=== PATIENT | female | born 1950 | race African-American/Black ===

== ENCOUNTER 2017-03-08 04:25 | Emergency (ER) | payer MEDICARE ==
[2017-03-08] MEDS ORDERED: Methocarbamol 1 GM in Sodium Chloride 0.9% 100 ML IVPB ONE (07:15)
[2017-03-08 07:43] LABS: Bilirubin Negative (Negative); Blood, Urine Negative (Negative); Glucose, Urine (Dipstick) Negative (Negative); Ketone, Urine Negative (Negative); Nitrite Negative (Negative); Protein, Urine (Dipstick) Negative (Neg-Trace); Urobilinogen 0.2 mg/dL (0.2-1.0)
--- NOTE | 2017-03-08 07:54 | RAD ---
CHEST 1 VIEW: HISTORY: A 67-year-old female with a cough and chronic back pain. COMPARISON: 06/16/16. FINDINGS: Heart size is upper range of normal. Mild vascular congestion. No confluent pneumonia, overt edema , or pleural effusion. IMPRESSION: Borderline heart and mild vascular congestion. No confluent pneumonia or other acute process. POS: [facility]
== END 2017-03-08 08:58 | disposition home or self-care (01) ==
LOC: ERS 04:25
DX: J20.9 Acute bronchitis, unspecified (principal); M54.5 Low back pain; G89.29 Other chronic pain; I25.10 Atherosclerotic heart disease of native coronary artery without angina pectoris; I25.2 Old myocardial infarction; I48.91 Unspecified atrial fibrillation; E11.9 Type 2 diabetes mellitus without complications; K21.9 Gastro-esophageal reflux disease without esophagitis; I10 Essential (primary) hypertension; Z86.73 Personal history of transient ischemic attack (TIA), and cerebral infarction without residual deficits; Z79.84 Long term (current) use of oral hypoglycemic drugs; Z79.82 Long term (current) use of aspirin; Z79.899 Other long term (current) drug therapy
CPT/HCPCS: 36416; 71010; 81003; 87086; 96365; J2800; J7050

== ENCOUNTER 2018-03-03 09:43 | Emergency (ER) | payer MEDICARE ==
[2018-03-03 12:53] LABS: Hemoglobin 8.2 g/dL (12.0-16.0); Mean Platelet Volume 7.9 fL (7.4-10.4); Platelet Count 210 thou/uL (130-400); RBC Distribution Width 16.8 % (11.5-14.5); Red Blood Cell (RBC) Count 2.35 mill/uL (4.20-5.40); White Blood Cell (WBC) Count 10.2 thou/uL (4.8-10.8)
[2018-03-03 12:54] LABS: #Basophils 0.1 thou/uL (0.0-0.2); #Eosinphils 0.1 thou/uL (0.0-0.7); #Lymphocytes 2.7 thou/uL (1.20-3.40); #Monocytes 0.9 thou/uL (0.11-0.59); #Neutrophils 6.4 thou/uL (1.40-6.50); %Eosinophils 0.5 % (0.0-10.0); %Lymphocytes 26.7 % (21.0-51.0); %Monocytes 8.8 % (0.0-10.0)
--- NOTE | 2018-03-03 13:03 | RAD ---
PORTABLE CHEST 1 VIEW: Date: 03/03/18 HISTORY: 68-year-old female with dyspnea, bilateral leg swelling and edema and pain to legs. FINDINGS: Heart size is upper range of normal. No confluent pneumonia, overt edema, or pleural effusion. IMPRESSION: Upper range of normal size heart. No evidence for other significant acute process. POS: [facility]
[2018-03-03 13:14] LABS: MDiff Complete? YES; Macrocytosis MODERATE=16-30 cells (100X) (0-5/hpf); PLT Morphology Comment Appears Adequate; Target Cells SLIGHT = 2-5 cells (100X) (0-1/hpf)
[2018-03-03 13:16] LABS: ALT (SGPT) 21 U/L (8-55); AST (SGOT) 43 U/L (5-34); Albumin 3.3 g/dL (3.4-4.8); Alkaline Phosphatase 149 U/L (40-150); Anion Gap 11 mmol/L (10-20); BUN (Urea Nitrogen) Less than 4 mg/dL (9.8-20.1); Bilirubin, Total 0.7 mg/dL (0.2-1.2); CK (CPK) 33 U/L (29-168); Calc. Creatinine Clearance 0 mL/min (70-130); Calcium 9.2 mg/dL (7.8-10.44); Carbon Dioxide 28 mmol/L (23-31); Chloride 98 mmol/L (98-107); Estimated GFR-MDRD 79; Globulin 3.8 g/dL (2.4-3.5); Glucose 148 mg/dL (80-115); Magnesium 1.4 mg/dL (1.6-2.6); Potassium 4.7 mmol/L (3.5-5.1); Protein, Total 7.1 g/dL (6.0-8.3); Sodium 132 mmol/L (136-145)
--- NOTE | 2018-03-03 14:07 | ULT ---
ULTRASOUND WITH DOPPLER DUPLEX VENOUS LOWER EXTREMITY BILATERAL: CPT: 83927 ICD-10-PCS: B54D HISTORY: Edema. TECHNIQUE: Color flow Doppler, spectral waveform analysis of pulsed Doppler, and ott-scale imaging with naida yary and augmentation, were used to evaluate the bilateral common femoral, femoral, popliteal, mortgage professional ior tibial, and superficial femoral, veins; and the proximal portions of the profunda femoral and gre ater saphenous, veins. FINDINGS: Appropriate compression, augmentation and flow within the imaged deep venous system of each lower ext remity without evidence of DVT. IMPRESSION: No DVT identified in the visualized bilateral lower extremities. POS: [facility]
== END 2018-03-03 15:13 | disposition home or self-care (01) ==
LOC: ERS 09:43
DX: R60.0 Localized edema (principal); I25.10 Atherosclerotic heart disease of native coronary artery without angina pectoris; I25.2 Old myocardial infarction; I48.91 Unspecified atrial fibrillation; E11.9 Type 2 diabetes mellitus without complications; K21.9 Gastro-esophageal reflux disease without esophagitis; I10 Essential (primary) hypertension; Z86.73 Personal history of transient ischemic attack (TIA), and cerebral infarction without residual deficits; Z79.899 Other long term (current) drug therapy; Z79.84 Long term (current) use of oral hypoglycemic drugs
CPT/HCPCS: 71045; 80053; 82550; 83735; 83880; 85025; 93005; 93970; 96374

== ENCOUNTER 2018-04-28 14:27 | Inpatient (IN) | payer MEDICARE ==
[2018-04-28] MEDS ORDERED: Dextrose 50% Abboject 50 ML SYRINGE ONE (14:35)
[2018-04-28 15:37] LABS: #Lymphocytes 0.7 thou/uL (1.20-3.40); #Monocytes 0.5 thou/uL (0.11-0.59); #Neutrophils 11.1 thou/uL (1.40-6.50); %Basophils 0.1 % (0.0-1.0); %Eosinophils 0.4 % (0.0-10.0); %Lymphocytes 5.6 % (21.0-51.0); %Monocytes 4.3 % (0.0-10.0); %Neutrophils 89.6 % (42.0-75.0); Hemoglobin 9.1 g/dL (12.0-16.0); Mean Corpuscular HGB CONC 31.6 g/dL (32.0-36.0); Mean Corpuscular Hemoglobin 34.2 pg (27.0-31.0); Mean Platelet Volume 7.9 fL (7.4-10.4); Platelet Count 203 thou/uL (130-400); RBC Distribution Width 14.9 % (11.5-14.5); Red Blood Cell (RBC) Count 2.66 mill/uL (4.20-5.40); White Blood Cell (WBC) Count 12.3 thou/uL (4.8-10.8)
[2018-04-28 15:53] LABS: ALT (SGPT) 20 U/L (8-55); AST (SGOT) 40 U/L (5-34); Albumin 3.5 g/dL (3.4-4.8); Alkaline Phosphatase 134 U/L (40-150); Anion Gap 15 mmol/L (10-20); BUN (Urea Nitrogen) 15 mg/dL (9.8-20.1); Bilirubin, Total 0.3 mg/dL (0.2-1.2); Calc. Creatinine Clearance 0 mL/min (70-130); Carbon Dioxide 16 mmol/L (23-31); Chloride 101 mmol/L (98-107); Estimated GFR-MDRD 55; Globulin 3.8 g/dL (2.4-3.5); Glucose 374 mg/dL (80-115); Potassium 5.3 mmol/L (3.5-5.1); Protein, Total 7.3 g/dL (6.0-8.3); Sodium 127 mmol/L (136-145)
[2018-04-28 15:57] LABS: Anisocytosis SLIGHT = 6-15 cells (100X) (0-5/hpf); MDiff Complete? YES; Macrocytosis SLIGHT = 6-15 cells (100X) (0-5/hpf); PLT Morphology Comment Appears Adequate; Polychromasia SLIGHT = 2-3 cells (100X) (0-2/hpf)
[2018-04-28] MEDS ORDERED: Enoxaparin Sodium 60 MG/0.6 ML SYRINGE ONE (16:30)
[2018-04-28 18:07] LABS: Magnesium 2.3 mg/dL (1.6-2.6)
--- NOTE | 2018-04-28 19:12 | CT ---
CT HEAD WITHOUT CONTRAST: Date: 04-28-18 Comparison: None. History: Altered mental status. Technique: Axial CT imaging at 5 mm intervals from vertex through skull base without contrast. FINDINGS: Imaged paranasal sinuses/mastoid air cells well aerated. There is atherosclerotic calcification of th e cavernous carotid arteries. No intracranial hemorrhage, midline shift, mass effect, or ventricular enlargement. IMPRESSION: No acute findings. POS: [facility]
[2018-04-28] MEDS ORDERED: Cefepime 2 GM VIAL ONE (19:42)
[2018-04-28] MEDS ORDERED: Dextrose 50% Abboject 50 ML SYRINGE SLOW IVP PRN (19:59)
[2018-04-28] MEDS ORDERED: Dextrose 5% in Water 1,000 ML IV PRN (19:59)
[2018-04-28] MEDS ORDERED: VANCOMYCIN IVPB PRN (20:11)
--- NOTE | 2018-04-28 20:34 | CT ---
CERVICAL SPINE CT WITHOUT CONTRAST: 04/28/18 COMPARISON: None. HISTORY: Unresponsive, hypoglycemia, altered mental status. TECHNIQUE: Axial CT imaging at 2.5 mm intervals from the skull base through lung apices without contrast. Das l and sagittal reformatted imaging obtained. FINDINGS: The visualized lung apices appear grossly unremarkable. The C1 ring is intact. The occipital condyles, the dens, and the C1-2 articulation demonstrate no acute findings. The craniocervical junction and the cervicothoracic junction demonstrate no acute findings. There is mild degenerative change at the atlantoaxial interspace. There is no anterolisthesis or retrolisthesis. No prevertebral soft tissue swelling. Left sided degenerative end plate change with sclerosis noted at C5-6. There is left sided uncovertebral osteophyte formation at C5-6 as well. There is no acute fracture or evidence of dislocation. IMPRESSION: Cervical spine degenerative change with no acute fracture or dislocation seen. POS: [facility]
--- NOTE | 2018-04-28 21:09 | RAD ---
UPRIGHT PORTABLE CHEST ONE VIEW: 04/28/18 HISTORY: 68-year-old female with history of hypoglycemia. COMPARISON: 03/03/18. FINDINGS: Inspiration is somewhat less than optimal. There is some bilateral vascular congestion with possible mild interstitial edema. No significant pleural effusion or cardiomegaly. IMPRESSION: Bilateral vascular congestion with possible very early or mild interstitial edema without cardiomegal y or significant pleural effusions. No confluent pneumonia. POS: [facility]
[2018-04-28 21:38] LABS: Lactic Acid 2.8 mmol/L (0.5-2.2)
--- NOTE | 2018-04-28 22:48 | HP ---
CHIEF COMPLAINT: Hypoglycemia. HISTORY OF PRESENT ILLNESS: The patient is a 68-year-old female who was found on the floor by her niece this morning, kind of less responsive, and the EMS was called. She was hypoglycemic with a glucose of 34. She was given D50 and transported to the [facility] Emergency Room in [facility]. She was found to be hypothermic. We do not know how long she was on the floor. We tried to contact her niece who is the surrogate decision maker, but we could not get hold of her. Her temperature at the time of emergency room evaluation was 93 rectally, then with warming blankets, it went up to 97 orally. PAST MEDICAL HISTORY: Positive for; 1. Atrial fibrillation. 2. Hypertension. 3. Diabetes mellitus. 4. Gastroesophageal reflux disease. 5. History of ischemic cerebrovascular accident. 6. Coronary artery disease. 7. Myocardial infarction. 8. From previous hospitalization, we know that she has some form of organic brain syndrome/dementia and she has a history of alcoholism. PAST SURGICAL HISTORY: 1. Hysterectomy. 2. Right forearm surgery after she had fracture. ALLERGIES: NONE. FAMILY HISTORY: Positive for Alzheimer dementia, diabetes mellitus, and hypertension. SOCIAL HISTORY: Apparently, she drinks alcohol socially at least twice a week. She denies any drug use or any serious smoking history. She lives at home. She is retired. REVIEW OF SYSTEMS: At this point, unobtainable because of patient's mental condition. PHYSICAL EXAMINATION: VITAL SIGNS: Her blood pressure is 133/98, pulse is 120, respiratory rate is 18, pain is zero, temperature is 97.3 orally, O2 saturation is 98% on room air. HEENT: Her head seems to be atraumatic. Eyes, pupils are responding to light properly. Sclerae nonicteric. Conjunctivae pinkish. Oral mucosa is slightly dry. NECK: Supple. LUNGS: Clear. HEART: S1 and S2. Irregularly irregular. No S3. No S4. Heart is tachycardic. LUNGS: Clear. ABDOMEN: Soft and nontender. Bowel sounds are present. No organomegaly. EXTREMITIES: No clubbing, cyanosis, or edema. NEUROLOGICAL: She follows my commands. She moves her all 4 extremities. Her response is slow. She is not able to recall exactly what happened. When she is asked a question about her past history, she is not really able to answer this completely. HOME MEDICATIONS: 1. Metformin 1000 mg twice a day. 2. Simvastatin 20 mg once a day. 3. Flecainide 50 mg twice a day. 4. Lisinopril/hydrochlorothiazide 10/12.5 mg one tablet twice a day. 5. Hydroxyzine 25 mg 1 to 2 tablets at bedtime. 6. Dyazide 37.5 mg once a day. LABORATORY DATA: White count of 12.3, hemoglobin 9.1, hematocrit 28.9, and platelet count 203. Chemistry, sodium of 127, potassium 5.3, chloride 101, CO2 of 16, creatinine 1.19, BUN 15, glucose 374 post D50 and post meal. The recent glucose is 225, AST 40, globulin 3.8, and the rest of chemistry is within normal limits. IMAGES: None. IMPRESSION: 1. Hypoglycemia of unclear etiology. The patient is not taking any insulin and on metformin only. After she received D50 and a meal, her glycemia has improved significantly and her mental condition is improved. 2. Status post being on the floor for unknown reason and it is unclear whether she lost consciousness. We can obtain the CT of the brain. 3. Hypothermia. Again, the patient was found on the floor. We do not know how long she was there, most likely because of hypoglycemia, she was not able to get up or maybe she had some kind of additional CVA event. 4. Atrial fibrillation with rapid ventricular rate. The patient has a history of diagnoses. She received 10 mg of Cardizem IV push in the emergency room and we will put her back on her flecainide to control the rate. Once we have CT of the brain negative for any bleed, we will give her full dose of Lovenox 1 mg/kg subcutaneously every 12 hours. 5. Organic brain syndrome/dementia per history. 6. Hypertension. 7. Hyponatremia of unclear etiology and chronicity. 8. Renal insufficiency. Again, unclear whether this is acute or chronic, most likely acute in the setting of the patient being on the floor for some time. 9. Gastroesophageal reflux disease. 10. Microcytic anemia. Again, unclear whether this is a new finding. 11. Hyperkalemia, mild. This does not need any treatment at this point. PLAN: Full admission to telemetry floor. IV fluids of normal saline at 100 mL/h, 2000 calories ADA diet. Lactic acid to be checked. The case was discussed with emergency room doctor. We will monitor her cardiac arrhythmia. We will check her glycemia every 4 hours. We will have the fish grader signals collection technician to evaluate her cardiac arrhythmia. We will obtain echocardiogram. Job ID: [id number]
[2018-04-29] MEDS: Flecainide 50 MG TAB PO SCH ×2 (02:42→08:52)
[2018-04-29 02:50] VITALS: BMI 23.8
[2018-04-29] MEDS: Sodium Chloride 0.9% 1,000 ML IV SCH ×2 (02:59→11:54)
[2018-04-29 03:00] LABS: Hemoglobin 9.3 g/dL (12.0-16.0); Hypochromia SLIGHT = 6-15 cells (100X) (0-5/hpf); Lymphocytes 14 % (21-51); MDiff Complete? YES; Macrocytosis SLIGHT = 6-15 cells (100X) (0-5/hpf); Mean Corpuscular HGB CONC 33.2 g/dL (32.0-36.0); Mean Platelet Volume 7.4 fL (7.4-10.4); Monocytes 4 % (0-10); Neutrophil 82 % (42-75); PLT Morphology Comment Appears Adequate; Platelet Count 217 thou/uL (130-400); RBC Distribution Width 14.9 % (11.5-14.5); Red Blood Cell (RBC) Count 2.58 mill/uL (4.20-5.40); White Blood Cell (WBC) Count 14.7 thou/uL (4.8-10.8)
[2018-04-29] MEDS ORDERED: Dextrose 10% in Water 1,000 ML IV SCH (03:00)
[2018-04-29 03:01] LABS: ALT (SGPT) 17 U/L (8-55); AST (SGOT) 26 U/L (5-34); Albumin 3.5 g/dL (3.4-4.8); Alkaline Phosphatase 125 U/L (40-150); Anion Gap 13 mmol/L (10-20); BUN (Urea Nitrogen) 12 mg/dL (9.8-20.1); Bilirubin, Total 0.3 mg/dL (0.2-1.2); Calc. Creatinine Clearance 53 mL/min (70-130); Calcium 9.5 mg/dL (7.8-10.44); Carbon Dioxide 19 mmol/L (23-31); Chloride 104 mmol/L (98-107); Estimated GFR-MDRD 71; Globulin 4.1 g/dL (2.4-3.5); Potassium 4.9 mmol/L (3.5-5.1); Protein, Total 7.6 g/dL (6.0-8.3); Sodium 131 mmol/L (136-145)
[2018-04-29 03:06] LABS: Glucose 51 mg/dL (80-115)
[2018-04-29] MEDS: Diltiazem HCl 125 MG, Admixture Fee 1 EACH in Sodium Chloride 0.9% 100 ML IVPB SCH (03:14)
[2018-04-29 04:35] LABS: Folate (Folic Acid) 2.6 ng/mL (7.0-31.4)
[2018-04-29] MEDS ORDERED: Vancomycin HCl 1 GM in Sodium Chloride 0.9% 250 ML 250 ML IVPB SCH (07:00)
[2018-04-29] MEDS: Cefepime 1 GM in Sodium Chloride 0.9% 100 ML IVPB SCH ×2 (11:00→19:51)
--- NOTE | 2018-04-29 11:01 | PQF ---
CLINICAL DOCUMENTATION IMPROVEMENT CLARIFICATION FORM: ICD-10 Updated PLEASE DO AN ADDENDUM TO THE PROGRESS NOTE WITH ANY DOCUMENTATION UPDATES OR ADDITIONS AND CARRY THROUGH TO DC SUMMARY. THANK YOU. DATE: 04/29/18 ATTN: DR. BALBUENA Please exercise your independent, professional judgment in responding to the clarification form. Clinical indicators are provided on the bottom of this form for your review Please check appropriate box(s): [ ] Acute Renal Failure (ARF) / Acute Kidney Injury (KEZIA) [ x ] Insignificant lab values [ ] Other diagnosis [ ] Unable to determine In addition, please specify: Present on Admission (POA): [x ] Yes [ ] No [ ] Unable to determine National Kidney Foundation Guidelines for CKD Staging Stage I Kidney damage with normal or increased GFRGFR > 90 Stage IIKidney damage with mildly decreased GFRGFR 60-89 Stage III Kidney damage with moderately decreased GFRGFR 30-59 Stage IVKidney damage with severely decreased GFRGFR 16-29 Stage VKidney failureGFR<15 ESRDEnd Stage Renal DiseaseOn dialysis Acute Renal Failure/Acute Kidney Failure defined as: Increases in SCr by (>) 0.3 mg/dl within 48 hours OR- Increases in SCr by (>) 1.5 times baseline, known or presumed to have occurred within the prior 7 days OR- Urine volume < 0.5 ml/kg/hour for 6 hours (KDIGO supplement 2012 for RIFLE/SHANIQUA criteria) For continuity of documentation, please document condition throughout progress notes and discharge summary. Thank You. CLINICAL INDICATORS - SIGNS / SYMPTOMS / LABS H&P: "RENAL INSUFFICIENCY" CREATININE 1/2: 1.19 / 13: 0.95 GFR: 55 71 RISKS: HYPERTENSION DIABETES TREATMENT: SERIAL LABS CARDIAC MONITORING IV FLUIDS (ER-PRESENT) (This form is maintained as a part of the permanent medical record) 2014 [employer] (formerly [employer]). All Rights Reserved ROBERT [email or web address] Office: [phone] [facility]
--- NOTE | 2018-04-29 11:38 | PDOC.PN ---
- Subjective Encounter Start Date: 04/29/18 Encounter Start Time: 11:37 -: old records requested/rev PT SEEN AND EXAMINED, CHART REVIEWED IN ITS ENTIRETY, THIS IS MY FIRST VISIT WITH THIS PATIENT Follow up for hypothermia, hypoglycemia and fall. pt remains tachycardic, on flecainide, cardiology consulted No F/c, no N/V/D/C, no CP or SOB, no cough or sputum production All systems reviewed and neg x as above - Objective Resuscitation Status - Order Detail: 04/28/18 17:13 Resuscitation Status Routine Resuscitation Status: FULL: Full Resuscitation MAR Reviewed: Yes Vital Signs & Weight: Vital Signs (12 hours) Temp Pulse Resp BP Pulse Ox 04/29/18 08:01 97.7 F 107 H 16 100/68 98 04/29/18 04:00 118 H 97/62 04/29/18 01:45 97.5 F L 148 H 18 120/85 98 Weight Weight 130 lb I&O: 04/28/18 04/29/18 04/30/18 06:59 06:59 06:59 Intake Total 1089 Output Total 300 Balance 789 Result Diagrams: 04/29/18 02:30 04/29/18 02:30 Additional Labs: Accuchecks 04/29/18 04/29/18 04/29/18 11:00 07:59 05:57 POC Glucose 151 H 188 H 226 H 04/29/18 04/29/18 04/28/18 04:21 02:41 20:09 POC Glucose 281 H Less than 35 L* 191 H 04/28/18 04/28/18 04/28/18 16:47 15:17 14:31 POC Glucose 225 H 362 H 76 Radiology Reviewed by me: Yes EKG Reviewed by me: Yes Phys Exam - Physical Examination Constitutional: NAD HEENT: PERRLA, moist MMs, sclera anicteric, oral pharynx no lesions Neck: no nodes, no JVD, supple, full ROM Respiratory: no wheezing, no rales, no rhonchi, clear to auscultation bilateral Cardiovascular: irregular tachycardic Gastrointestinal: soft, non-tender, no distention, positive bowel sounds Musculoskeletal: no edema Neurological: non-focal, normal sensation, moves all 4 limbs Lymphatic: no nodes Psychiatric: normal affect, A&O x 3 Skin: no rash, normal turgor, cap refill <2 seconds Dx/Plan (1) Alcohol abuse Code(s): F10.10 - ALCOHOL ABUSE, UNCOMPLICATED Status: Chronic (2) Atrial fibrillation with RVR Code(s): I48.91 - UNSPECIFIED ATRIAL FIBRILLATION Status: Chronic (3) CAD (coronary artery disease) Code(s): I25.10 - ATHSCL HEART DISEASE OF [place] CORONARY ARTERY W/O ANG PCTRS Status: Acute Qualifiers: Coronary Disease-Associated Artery/Lesion type: [place] artery [place] vs. transplanted heart: [place] heart Associated angina: without angina Qualified Code(s): I25.10 - Atherosclerotic heart disease of [place] coronary artery without angina pectoris (4) Dementia, alcoholic Code(s): F10.27 - ALCOHOL DEPENDENCE WITH ALCOHOL-INDUCED PERSISTING DEMENTIA Status: Chronic Qualifiers: Dementia behavioral disturbance: with behavioral disturbance Qualified Code (s): F10.27 - Alcohol dependence with alcohol-induced persisting dementia (5) Diabetes Mellitus Type 2 in Nonobese Code(s): E11.9 - TYPE 2 DIABETES MELLITUS WITHOUT COMPLICATIONS Status: Acute (6) Gastroesophageal reflux disease Code(s): K21.9 - GASTRO-ESOPHAGEAL REFLUX DISEASE WITHOUT ESOPHAGITIS Status: Chronic Qualifiers: Esophagitis presence: without esophagitis Qualified Code(s): K21.9 - Gastro -esophageal reflux disease without esophagitis (7) HTN (hypertension) Code(s): I10 - ESSENTIAL (PRIMARY) HYPERTENSION Status: Chronic Qualifiers: Hypertension type: essential hypertension Qualified Code(s): I10 - Essential (primary) hypertension (8) Non compliance with medical treatment Code(s): Z91.19 - PATIENT'S NONCOMPLIANCE W OTH MEDICAL TREATMENT AND REGIMEN Status: Chronic - Plan cont current plan of care, out of bed/ambulate * . continue flecainide, follow up on cardiology recommendations
[2018-04-29] MEDS: Vancomycin HCl 500 MG in Sodium Chloride 0.9% 100 ML IVPB SCH (20:22)
--- NOTE | 2018-04-30 00:59 | CON ---
DATE OF CONSULTATION: 04/29/2018 CARDIOLOGY CONSULTATION PRIMARY CHICKEN DRESSER: Darius Manuel MD REASON FOR CONSULTATION: Atrial fibrillation with RVR. HISTORY OF PRESENT ILLNESS: Ms. Dee is a very pleasant 68-year-old female, who comes to the hospital for being found on the floor by her niece, anderson. She was found to be hypoglycemic with a glucose of 34, given some D50 and taken to the hospital for further evaluation. She was also hypothermic. Unclear as to how long she was on the floor. Temperature in the ER rectally was 93. Warming blankets were able to make it go up to 97. During her admission, she was found to be in atrial fibrillation with RVR. She was started on a Cardizem drip and full dose Lovenox. Last time she saw Dr. Manuel was in 2014. At that time, she was on flecainide and aspirin for stroke prophylaxis. She had a lot of trouble with followups. She actually never had a followup since 2014 and so, our office stopped filing her antiarrhythmics until she would show up to the office. Currently, she denies any chest pain, tightness, or pressure. No shortness of breath. PAST MEDICAL HISTORY: 1. Paroxysmal atrial fibrillation. 2. History of GI bleeding in the past. 3. Hypertension. 4. Type 2 diabetes. 5. GERD. 6. Ischemic CVAs in the past. 7. History of atrial flutter, status post ablation. 8. Dementia, alcohol related most likely. 9. Noncompliance. PAST SURGICAL HISTORY: 1. Hysterectomy. 2. Flutter ablation. 3. Right forearm surgery after fracture. OUTPATIENT MEDICATIONS: 1. Metformin 1000 mg b.i.d. 2. Simvastatin 20 mg a day. 3. Flecainide 50 mg twice a day. 4. Lisinopril hydrochlorothiazide 10/12.5 mg twice a day. 5. Hydroxyzine. 6. Dyazide 37.5 mg daily. ALLERGIES: NO KNOWN DRUG ALLERGIES. FAMILY HISTORY: No early coronary artery disease. SOCIAL HISTORY: Social alcohol use twice a week. No drug use or tobacco use. REVIEW OF SYSTEMS: A 12-point review of systems was done, was all negative unless stated in the history of present illness. PHYSICAL EXAMINATION: VITAL SIGNS: Temperature 97.4, pulse 114, respiratory rate 18, sat 96% on room air, and blood pressure 119/62. GENERAL: Awake, alert, and oriented to person and place. Difficulty with time. No distress. HEENT: Normocephalic, atraumatic. NECK: Supple. LUNGS: Clear. CARDIOVASCULAR: S1, S2. No S3. Irregularly irregular heart rate in the 90s. ABDOMEN: Soft. Positive bowel sounds. EXTREMITIES: No edema. SKIN: Warm and dry. LABORATORY WORK: Shows a white count of 12.3, up to 14, this morning; hemoglobin 9.3, hematocrit 28, platelet count 217. Chemistry on admission, glucose of less than 35, much better since. Sodium 131, potassium 4.9, chloride 104, carbon dioxide 19, anion gap 13, BUN 12, creatinine 0.95, GFR 71, calcium 9.5, globulin 4.1, folate was low at 2.6. Vitamin B12 is normal. Normal bilirubin, AST, ALT, and alkaline phosphatase. Cervical spine CT and brain CT were reviewed. No acute findings. Chest x-ray, bilateral vascular congestion with mild interstitial edema. ASSESSMENT: 1. Loss of consciousness related to hypoglycemia. 2. Atrial fibrillation with rapid ventricular response: Likely related to her acute state with a little volume up. 3. Acute on chronic diastolic heart failure. 4. Noncompliance. PLAN: 1. We would stop full anticoagulation. She has a history of GI bleeding and noncompliance. She will be a poor candidate for anticoagulation in this setting. Low-dose aspirin with PPI alone for stroke prophylaxis. 2. We would also not give her flecainide as she is noncompliant, antiarrhythmics would not be ideal in the setting of noncompliance as there has to be followup with EKGs. 3. Continue rate control for now. We will continue diltiazem drip today, possibly switch to oral in the morning if she remains rate controlled. 4. We will add oral beta suresh in the form of Toprol-XL 25 mg daily to try to improve her rate control. Thank you for letting me to participate in the care of your patient. We will follow. Job ID: [id number]
[2018-04-30] MEDS: Diltiazem HCl 125 MG, Admixture Fee 1 EACH in Sodium Chloride 0.9% 100 ML IVPB SCH (02:18)
[2018-04-30 06:32] LABS: ALT (SGPT) 15 U/L (8-55); AST (SGOT) 26 U/L (5-34); Alkaline Phosphatase 109 U/L (40-150); Anion Gap 12 mmol/L (10-20); BUN (Urea Nitrogen) 8 mg/dL (9.8-20.1); Bilirubin, Total 0.5 mg/dL (0.2-1.2); Calc. Creatinine Clearance 61 mL/min (70-130); Calcium 9.2 mg/dL (7.8-10.44); Carbon Dioxide 15 mmol/L (23-31); Chloride 107 mmol/L (98-107); Estimated GFR-MDRD 84; Globulin 3.8 g/dL (2.4-3.5); Glucose 96 mg/dL (80-115); Potassium 5.1 mmol/L (3.5-5.1); Protein, Total 6.8 g/dL (6.0-8.3); Sodium 129 mmol/L (136-145)
[2018-04-30 06:35] LABS: #Eosinphils 0.1 thou/uL (0.0-0.7); #Lymphocytes 3.1 thou/uL (1.20-3.40); #Neutrophils 8.5 thou/uL (1.40-6.50); %Basophils 0.3 % (0.0-1.0); %Eosinophils 0.8 % (0.0-10.0); %Lymphocytes 24.5 % (21.0-51.0); %Monocytes 7.8 % (0.0-10.0); %Neutrophils 66.5 % (42.0-75.0); Hemoglobin 9.2 g/dL (12.0-16.0); MDiff Complete? YES; Macrocytosis SLIGHT = 6-15 cells (100X) (0-5/hpf); Mean Corpuscular HGB CONC 32.5 g/dL (32.0-36.0); Mean Corpuscular Hemoglobin 35.5 pg (27.0-31.0); Mean Platelet Volume 7.8 fL (7.4-10.4); PLT Morphology Comment Appears Adequate; Platelet Count 259 thou/uL (130-400); RBC Distribution Width 15.2 % (11.5-14.5); White Blood Cell (WBC) Count 12.8 thou/uL (4.8-10.8)
[2018-04-30] MEDS: Cefepime 1 GM in Sodium Chloride 0.9% 100 ML IVPB SCH ×2 (08:35→20:54)
[2018-04-30] MEDS: Aspirin 81 mg Enteric Coated Tablet PO SCH (08:36)
[2018-04-30] MEDS ORDERED: HumaLOG 300 UNITS/3 ML VIAL SC PRN (12:03)
--- NOTE | 2018-04-30 16:42 | PDOC.CTH ---
Cardiology Progress Note - Subjective No new issues. - Objective Vital Signs Temp Pulse Resp BP Pulse Ox 04/30/18 15:48 98.6 F 85 18 99/65 97 04/30/18 12:36 98.6 F 91 20 108/73 97 04/30/18 07:37 98.5 F 81 21 H 110/81 96 Weight 129 lb 04/29/18 04/30/18 05/01/18 06:59 06:59 06:59 Intake Total 1089 3030 Output Total 300 1320 Balance 789 1710 - Physical Examination General/Neuro: alert & oriented x3, NAD Neck: no JVD present Lungs: CTA, unlabored respirations Heart: other: (Irregular) Abdomen: NT/ND Extremities: other: (no edema) - Telemetry Telemetry Rhythm: Afib HR 90-100 - Labs Result Diagrams: 04/30/18 05:53 04/30/18 05:53 Troponin/CKMB Troponin I Less than 0.010 ng/mL (< 0.028) 04/28/18 15:12 - Assessment/Plan 1. Paroxysmal afib Currently rate controlled. 2. Hx of GI bleeding in the past 3. Hypoglycemia and LOC due to this. 4. Acute on chronic diastolic heart failure, improved. 5. Non compliance PLAN: - Will stop diltiazem drip - Increase Toprol Xl for rate control - Poor candidate for anti arrhythmics due to non compliance - Poor candidate for anticoagulation due to GI bleeding while on it in the past , ASA alone for stroke prophylaxis.
[2018-04-30 20:20] LABS: Vancomycin, Trough 9.7 ug/mL
[2018-04-30] MEDS ORDERED: Vancomycin HCl 750 MG in Sodium Chloride 0.9% 250 ML 250 ML IVPB SCH (22:00)
[2018-04-30] MEDS: Vancomycin HCl 500 MG in Sodium Chloride 0.9% 100 ML IVPB SCH (22:29)
[2018-05-01] MEDS ORDERED: Non-Formulary Item 1 EACH (Cyclobenzaprine Hcl [Cyclobenzaprine Hcl] 5 MG) PO PRN (07:17)
[2018-05-01] MEDS ORDERED: Cyclobenzaprine 10 MG TAB PO PRN (07:34)
[2018-05-01] MEDS: Cyanocobalamin (Vitamin B-12) 1,000 MCG TAB PO SCH (08:23)
[2018-05-01] MEDS: Aspirin 81 mg Enteric Coated Tablet PO SCH (08:23)
[2018-05-01] MEDS: Folic Acid 1 MG TAB PO SCH (08:23)
[2018-05-01] MEDS: Multivitamin W/ Minerals 1 TAB PO SCH (08:24)
[2018-05-01 08:53] LABS: #Basophils 0.1 thou/uL (0.0-0.2); #Eosinphils 0.2 thou/uL (0.0-0.7); #Lymphocytes 2.9 thou/uL (1.20-3.40); #Monocytes 1.1 thou/uL (0.11-0.59); #Neutrophils 7.3 thou/uL (1.40-6.50); %Basophils 0.7 % (0.0-1.0); %Eosinophils 1.4 % (0.0-10.0); %Lymphocytes 25.5 % (21.0-51.0); %Monocytes 9.3 % (0.0-10.0); %Neutrophils 63.1 % (42.0-75.0); Hemoglobin 8.5 g/dL (12.0-16.0); Mean Corpuscular HGB CONC 33.4 g/dL (32.0-36.0); Mean Corpuscular Hemoglobin 35.7 pg (27.0-31.0); Mean Platelet Volume 7.5 fL (7.4-10.4); Platelet Count 269 thou/uL (130-400); RBC Distribution Width 14.8 % (11.5-14.5); Red Blood Cell (RBC) Count 2.39 mill/uL (4.20-5.40); White Blood Cell (WBC) Count 11.5 thou/uL (4.8-10.8)
[2018-05-01 09:07] LABS: INR-International Normal Ratio 1.1; Prothrombin Time 14.6 SEC (12.0-14.7)
[2018-05-01 09:08] LABS: PTT 39.9 SEC (22.9-36.1)
[2018-05-01 09:13] LABS: Anion Gap 12 mmol/L (10-20); BUN (Urea Nitrogen) 8 mg/dL (9.8-20.1); Calc. Creatinine Clearance 70 mL/min (70-130); Calcium 8.9 mg/dL (7.8-10.44); Carbon Dioxide 17 mmol/L (23-31); Chloride 103 mmol/L (98-107); Estimated GFR-MDRD 88; Glucose 108 mg/dL (80-115); Magnesium 1.3 mg/dL (1.6-2.6); Potassium 4.5 mmol/L (3.5-5.1); Sodium 127 mmol/L (136-145)
[2018-05-01] MEDS: Furosemide 20 MG TAB PO SCH (09:35)
--- NOTE | 2018-05-01 10:23 | PDOC.PN ---
- Subjective Encounter Start Date: 05/01/18 Encounter Start Time: 07:30 -: old records requested/rev Patient seen and examined. No new complaints. No overnight events her heart rate is not controlled - Objective Resuscitation Status - Order Detail: 04/28/18 17:13 Resuscitation Status Routine Resuscitation Status: FULL: Full Resuscitation MAR Reviewed: Yes Vital Signs & Weight: Vital Signs (12 hours) Temp Pulse Resp BP Pulse Ox 05/01/18 08:30 92 L 05/01/18 08:25 109 H 108/58 L 05/01/18 07:40 99.3 F 113 H 16 99/60 92 L 05/01/18 03:20 98.8 F 115 H 14 102/63 95 Weight Weight 142 lb I&O: 04/30/18 05/01/18 05/02/18 06:59 06:59 06:59 Intake Total 3030 1733 Output Total 1320 2650 Balance 1710 -917 Result Diagrams: 05/01/18 08:35 05/01/18 08:35 Additional Labs: Accuchecks 05/01/18 04/30/18 04/30/18 05:51 20:36 16:47 POC Glucose 118 H 203 H 183 H 04/30/18 10:58 POC Glucose 216 H Radiology Reviewed by me: Yes EKG Reviewed by me: Yes (afib) Phys Exam - Physical Examination Constitutional: NAD HEENT: PERRLA, moist MMs, sclera anicteric Neck: no JVD, supple Respiratory: no wheezing, no rales, no rhonchi Cardiovascular: no significant murmur, irregular Gastrointestinal: soft, non-tender, no distention, positive bowel sounds Musculoskeletal: no edema, pulses present Neurological: non-focal, normal sensation, moves all 4 limbs Lymphatic: no nodes Psychiatric: normal affect, A&O x 3 Skin: no rash, normal turgor Dx/Plan (1) Acute on chronic diastolic ACC/AHA stage C congestive heart failure Code(s): I50.33 - ACUTE ON CHRONIC DIASTOLIC (CONGESTIVE) HEART FAILURE Status : Acute (2) Atrial fibrillation with RVR Code(s): I48.91 - UNSPECIFIED ATRIAL FIBRILLATION Status: Acute (3) Diabetes Mellitus Type 2 in Nonobese Code(s): E11.9 - TYPE 2 DIABETES MELLITUS WITHOUT COMPLICATIONS Status: Acute (4) Folate deficiency Code(s): E53.8 - DEFICIENCY OF OTHER SPECIFIED B GROUP VITAMINS Status: Acute (5) Hypoglycemia associated with type 2 diabetes mellitus Code(s): E11.649 - TYPE 2 DIABETES MELLITUS WITH HYPOGLYCEMIA WITHOUT COMA Status: Acute (6) Hyponatremia Code(s): E87.1 - HYPO-OSMOLALITY AND HYPONATREMIA Status: Acute (7) Lactic acidosis Code(s): E87.2 - ACIDOSIS Status: Acute (8) Alcohol abuse Code(s): F10.10 - ALCOHOL ABUSE, UNCOMPLICATED Status: Chronic (9) CAD (coronary artery disease) Code(s): I25.10 - ATHSCL HEART DISEASE OF [place] CORONARY ARTERY W/O ANG PCTRS Status: Chronic Qualifiers: Coronary Disease-Associated Artery/Lesion type: [place] artery [place] vs. transplanted heart: [place] heart Associated angina: without angina Qualified Code(s): I25.10 - Atherosclerotic heart disease of [place] coronary artery without angina pectoris (10) Dementia, alcoholic Code(s): F10.27 - ALCOHOL DEPENDENCE WITH ALCOHOL-INDUCED PERSISTING DEMENTIA Status: Chronic Qualifiers: Dementia behavioral disturbance: with behavioral disturbance Qualified Code (s): F10.27 - Alcohol dependence with alcohol-induced persisting dementia (11) Gastroesophageal reflux disease Code(s): K21.9 - GASTRO-ESOPHAGEAL REFLUX DISEASE WITHOUT ESOPHAGITIS Status: Chronic Qualifiers: Esophagitis presence: without esophagitis Qualified Code(s): K21.9 - Gastro -esophageal reflux disease without esophagitis (12) HTN (hypertension) Code(s): I10 - ESSENTIAL (PRIMARY) HYPERTENSION Status: Chronic Qualifiers: Hypertension type: essential hypertension Qualified Code(s): I10 - Essential (primary) hypertension (13) Macrocytic anemia Code(s): D53.9 - NUTRITIONAL ANEMIA, UNSPECIFIED Status: Chronic (14) Non compliance with medical treatment Code(s): Z91.19 - PATIENT'S NONCOMPLIANCE W OTH MEDICAL TREATMENT AND REGIMEN Status: Chronic - Plan cont current plan of care, PT/OT * start PT * DC vancomycin and cefeepime * give one dose of digoxin * start folic acid, vitamin b12, thiamin and theragran * still rate not controlled and echo result pending * cardiology on case * ambulate today. Review of Systems - Review of Systems ENT: negative: Ear Pain, Ear Discharge, Nose Pain, Nose Discharge, Nose Congestion, Mouth Pain, Mouth Swelling, Throat Pain, Throat Swelling, Other Respiratory: negative: Cough, Dry, Shortness of Breath, Hemoptysis, SOB with Excertion, Pleuritic Pain, Sputum, Wheezing Cardiovascular: negative: chest pain, palpitations, orthopnea, paroxysmal nocturnal dyspnea, edema, light headedness, other Gastrointestinal: negative: Nausea, Vomiting, Abdominal Pain, Diarrhea, Constipation, Melena, Hematochezia, Other Genitourinary: negative: Dysuria, Frequency, Incontinence, Hematuria, Retention , Other Musculoskeletal: negative: Neck Pain, Shoulder Pain, Arm Pain, Back Pain, Hand Pain, Leg Pain, Foot Pain, Other Skin: negative: Rash, Lesions, Ellis, Bruising, Other - Medications/Allergies Allergies/Adverse Reactions: Allergies Allergy/AdvReac Type Severity Reaction Status Date / Time No Known Allergies Allergy Verified 07/12/13 22:42 Medications: Current Medications Aspirin (Ecotrin) 81 mg PO DAILY [facility] Last Admin: 05/01/18 08:23 Dose: 81 mg Atorvastatin Calcium (Lipitor) 10 mg PO [facility] Cyanocobalamin (Vitamin B-12) 1,000 mcg PO DAILY [facility] Last Admin: 05/01/18 08:23 Dose: 1,000 mcg Cyclobenzaprine HCl (Flexeril) 5 mg PO BIDPRN PRN PRN Reason: Muscle Spasm Dextrose/Water (Dextrose 50%) 25 gm SLOW IVP PRN PRN PRN Reason: Hypoglycemia Folic Acid (Folvite) 1 mg PO DAILY [facility] Last Admin: 05/01/18 08:23 Dose: 1 mg Furosemide (Lasix) 20 mg PO DAILY [facility] Last Admin: 05/01/18 09:35 Dose: 20 mg Glucagon (Glucagon) 1 mg IM PRN PRN PRN Reason: Hypoglycemia Last Admin: 04/29/18 02:46 Dose: 1 mg Dextrose/Water (D5w) 1,000 mls @ 0 mls/hr IV .Q0M PRN PRN Reason: Hypoglycemia Insulin Human Lispro (Humalog) 0 units SC .MILD SLIDING SCALE PRN; Protocol PRN Reason: MILD SLIDING SCALE Iron/Minerals/Multivitamins (Theragran M) 1 tab PO DAILY [facility] Last Admin: 05/01/18 08:24 Dose: 1 tab Metoprolol Succinate (Toprol Xl) 50 mg PO DAILY [facility] Last Admin: 05/01/18 08:23 Dose: 50 mg Miscellaneous Medication (Pharmacy To Dose) 1 each IVPB PRN PRN PRN Reason: EMPIRIC Sodium Chloride (Flush - Normal Saline) 10 ml IVF Q12HR [facility] Last Admin: 05/01/18 08:26 Dose: 10 ml Sodium Chloride (Flush - Normal Saline) 10 ml IVF PRN PRN PRN Reason: Saline Flush Thiamine HCl (Thiamine) 100 mg PO DAILY [facility] Last Admin: 05/01/18 08:23 Dose: 100 mg
[2018-05-01] MEDS ORDERED: Digoxin 0.5 MG/2 ML AMP SLOW IVP SCH ×3 (11:00→18:45)
[2018-05-01] MEDS ORDERED: Magnesium Sulfate 3 GM in Sodium Chloride 0.9% 100 ML IVPB SCH (11:15)
[2018-05-01] MEDS ORDERED: Senokot S 8.6-50 MG TAB PO PRN (11:17)
[2018-05-01] MEDS ORDERED: Cepastat Lozenges 1 LOZ PO PRN (11:17)
[2018-05-01] MEDS ORDERED: Diabetic Tussin 200 MG/10 ML UDCUP PO PRN (11:17)
[2018-05-01] MEDS ORDERED: Loratadine 10 MG TAB PO PRN (11:17)
[2018-05-01] MEDS ORDERED: Eucerin (Mineral Oil/Petrolatum,White) 30 gm Jar TOP PRN (11:17)
[2018-05-01] MEDS ORDERED: Zolpidem Tartrate 5 MG TAB PO PRN (11:17)
[2018-05-01] MEDS ORDERED: Loperamide HCl 2 MG CAP PO PRN (11:17)
[2018-05-01] MEDS ORDERED: Artificial Tears 18 DROP/0.9 ML EA EYE PRN (11:17)
[2018-05-01] MEDS ORDERED: Sodium Chloride 0.65% Nasal 44 ML BOT EA NARE PRN (11:17)
[2018-05-01] MEDS ORDERED: HYDROcodone/Acetaminophen 5/325 mg Tablet PO PRN (11:17)
[2018-05-01] MEDS ORDERED: Bisacodyl 10 MG SUPP PR PRN (11:17)
[2018-05-01] MEDS ORDERED: Calcium Carbonate 500 MG ChewTAB PO PRN (11:17)
[2018-05-01] MEDS ORDERED: Ondansetron ODT 4 MG TAB PO PRN (11:17)
[2018-05-01] MEDS ORDERED: hydrALAZINE 20 MG/ML VIAL SLOW IVP PRN (11:17)
[2018-05-01] MEDS ORDERED: Ondansetron PF 4 MG/2 ML Vial IVP PRN (11:17)
[2018-05-01] MEDS: Famotidine 20 MG TAB PO SCH (19:54)
[2018-05-01] MEDS: Atorvastatin Calcium 10 MG TAB PO SCH (19:55)
[2018-05-01] MEDS ORDERED: Simvastatin 20 MG TAB PO SCH (21:00)
--- NOTE | 2018-05-01 21:42 | PDOC.CTH ---
Cardiology Progress Note - Objective Vital Signs Temp Pulse Resp BP Pulse Ox 05/01/18 19:51 97.7 F 108 H 18 124/68 99 05/01/18 18:47 130 H 05/01/18 18:46 116 H 05/01/18 16:00 98.7 F 116 H 16 120/72 100 05/01/18 11:30 110 H 16 119/72 100 Weight 142 lb 04/30/18 05/01/18 05/02/18 06:59 06:59 06:59 Intake Total 3030 1733 960 Output Total 1320 2650 600 Balance 1710 -917 360 - Labs Result Diagrams: 05/02/18 06:07 05/02/18 06:07 Troponin/CKMB Troponin I Less than 0.010 ng/mL (< 0.028) 04/28/18 15:12 - Assessment/Plan 1. Paroxysmal afib - Diltiazem 180mg qd and Digoxin IV and PO were started for HR 120-130s. Cont. to monitor 2. Hx of GI bleeding in the past 3. Hypoglycemia and LOC due to this. 4. Acute on chronic diastolic heart failure, improved. 5. Hyponatremia - no changed. Non compliance MAR reviewed
[2018-05-01 23:51] LABS: Bilirubin Negative (Negative); Blood, Urine Negative (Negative); Clarity CLEAR (Clear); Glucose, Urine (Dipstick) 250 mg/dL (Negative); Leukocyte Negative (Negative); Nitrite Negative (Negative); Protein, Urine (Dipstick) Negative (Neg-Trace); Specific Gravity, Urine 1.005 (1.002-1.036); Urobilinogen 0.2 mg/dL (0.2-1.0)
[2018-05-01 23:54] LABS: Bacteria/HPF None Seen HPF (None Seen); Hyaline Casts/LPF 0-3 HYALINE CAST LPF (0-3 Hyaline); RBC/HPF None Seen HPF (0-3); Squamous Epithelial 0-3 HPF (0-3); WBC/HPF None Seen HPF (0-3)
[2018-05-02] MEDS ORDERED: Digoxin 0.5 MG/2 ML AMP SLOW IVP SCH (00:30)
[2018-05-02 06:23] LABS: #Basophils 0.1 thou/uL (0.0-0.2); #Eosinphils 0.2 thou/uL (0.0-0.7); #Lymphocytes 2.1 thou/uL (1.20-3.40); #Monocytes 1.2 thou/uL (0.11-0.59); %Basophils 0.7 % (0.0-1.0); %Eosinophils 1.9 % (0.0-10.0); %Lymphocytes 16.3 % (21.0-51.0); %Monocytes 9.5 % (0.0-10.0); %Neutrophils 71.6 % (42.0-75.0); Hemoglobin 8.8 g/dL (12.0-16.0); Mean Corpuscular HGB CONC 32.8 g/dL (32.0-36.0); Mean Corpuscular Hemoglobin 35.2 pg (27.0-31.0); Mean Platelet Volume 7.5 fL (7.4-10.4); Platelet Count 283 thou/uL (130-400); RBC Distribution Width 14.9 % (11.5-14.5); Red Blood Cell (RBC) Count 2.49 mill/uL (4.20-5.40); White Blood Cell (WBC) Count 12.5 thou/uL (4.8-10.8)
[2018-05-02 06:37] LABS: Anion Gap 13 mmol/L (10-20); BUN (Urea Nitrogen) 7 mg/dL (9.8-20.1); Calc. Creatinine Clearance 70 mL/min (70-130); Calcium 9.1 mg/dL (7.8-10.44); Carbon Dioxide 18 mmol/L (23-31); Chloride 102 mmol/L (98-107); Estimated GFR-MDRD 88; Glucose 109 mg/dL (80-115); Magnesium 1.7 mg/dL (1.6-2.6); Potassium 4.5 mmol/L (3.5-5.1); Sodium 128 mmol/L (136-145)
[2018-05-02] MEDS: Cyanocobalamin (Vitamin B-12) 1,000 MCG TAB PO SCH (08:58)
[2018-05-02] MEDS: Famotidine 20 MG TAB PO SCH ×2 (08:58→20:11)
[2018-05-02] MEDS: Multivitamin W/ Minerals 1 TAB PO SCH (08:59)
[2018-05-02] MEDS: Folic Acid 1 MG TAB PO SCH (08:59)
[2018-05-02] MEDS: Furosemide 20 MG TAB PO SCH (08:59)
[2018-05-02] MEDS: Digoxin 0.125 MG TAB PO SCH (08:59)
[2018-05-02] MEDS: Aspirin 81 mg Enteric Coated Tablet PO SCH (09:00)
--- NOTE | 2018-05-02 11:04 | PDOC.PN ---
- Subjective Encounter Start Date: 05/02/18 Encounter Start Time: 07:40 Patient seen and examined. No new complaints. No overnight events - Objective Resuscitation Status - Order Detail: 04/28/18 17:13 Resuscitation Status Routine Resuscitation Status: FULL: Full Resuscitation MAR Reviewed: Yes Vital Signs & Weight: Vital Signs (12 hours) Temp Pulse Resp BP Pulse Ox 05/02/18 08:59 89 05/02/18 07:35 100 05/02/18 07:30 98.3 F 89 16 112/64 100 05/02/18 04:00 97.9 F 95 20 95/56 L 98 05/02/18 01:44 108 H Weight Weight 141 lb 3.2 oz I&O: 05/01/18 05/02/18 05/03/18 06:59 06:59 06:59 Intake Total 1733 1440 Output Total 2650 600 Balance -917 840 Result Diagrams: 05/02/18 06:07 05/02/18 06:07 Additional Labs: Accuchecks 05/02/18 05/01/18 05/01/18 05:25 20:02 17:57 POC Glucose 95 213 H 163 H Radiology Reviewed by me: Yes (echo reviewed) EKG Reviewed by me: Yes (afib) Phys Exam - Physical Examination Constitutional: NAD HEENT: PERRLA, moist MMs, sclera anicteric Neck: no JVD, supple Respiratory: no wheezing, no rales, no rhonchi Cardiovascular: RRR, irregular Gastrointestinal: soft, non-tender, no distention, positive bowel sounds Musculoskeletal: no edema, pulses present Neurological: non-focal, normal sensation Lymphatic: no nodes Psychiatric: normal affect, A&O x 3 Skin: no rash, normal turgor Dx/Plan (1) Acute on chronic diastolic ACC/AHA stage C congestive heart failure Code(s): I50.33 - ACUTE ON CHRONIC DIASTOLIC (CONGESTIVE) HEART FAILURE Status : Acute (2) Atrial fibrillation with RVR Code(s): I48.91 - UNSPECIFIED ATRIAL FIBRILLATION Status: Acute (3) Diabetes Mellitus Type 2 in Nonobese Code(s): E11.9 - TYPE 2 DIABETES MELLITUS WITHOUT COMPLICATIONS Status: Acute (4) Folate deficiency Code(s): E53.8 - DEFICIENCY OF OTHER SPECIFIED B GROUP VITAMINS Status: Acute (5) Hypoglycemia associated with type 2 diabetes mellitus Code(s): E11.649 - TYPE 2 DIABETES MELLITUS WITH HYPOGLYCEMIA WITHOUT COMA Status: Acute (6) Hyponatremia Code(s): E87.1 - HYPO-OSMOLALITY AND HYPONATREMIA Status: Acute (7) Lactic acidosis Code(s): E87.2 - ACIDOSIS Status: Acute (8) Alcohol abuse Code(s): F10.10 - ALCOHOL ABUSE, UNCOMPLICATED Status: Chronic (9) CAD (coronary artery disease) Code(s): I25.10 - ATHSCL HEART DISEASE OF [place] CORONARY ARTERY W/O ANG PCTRS Status: Chronic Qualifiers: Coronary Disease-Associated Artery/Lesion type: [place] artery [place] vs. transplanted heart: [place] heart Associated angina: without angina Qualified Code(s): I25.10 - Atherosclerotic heart disease of [place] coronary artery without angina pectoris (10) Dementia, alcoholic Code(s): F10.27 - ALCOHOL DEPENDENCE WITH ALCOHOL-INDUCED PERSISTING DEMENTIA Status: Chronic Qualifiers: Dementia behavioral disturbance: with behavioral disturbance Qualified Code (s): F10.27 - Alcohol dependence with alcohol-induced persisting dementia (11) Gastroesophageal reflux disease Code(s): K21.9 - GASTRO-ESOPHAGEAL REFLUX DISEASE WITHOUT ESOPHAGITIS Status: Chronic Qualifiers: Esophagitis presence: without esophagitis Qualified Code(s): K21.9 - Gastro -esophageal reflux disease without esophagitis (12) HTN (hypertension) Code(s): I10 - ESSENTIAL (PRIMARY) HYPERTENSION Status: Chronic Qualifiers: Hypertension type: essential hypertension Qualified Code(s): I10 - Essential (primary) hypertension (13) Macrocytic anemia Code(s): D53.9 - NUTRITIONAL ANEMIA, UNSPECIFIED Status: Chronic (14) Non compliance with medical treatment Code(s): Z91.19 - PATIENT'S NONCOMPLIANCE W OTH MEDICAL TREATMENT AND REGIMEN Status: Chronic (15) Hypomagnesemia Code(s): E83.42 - HYPOMAGNESEMIA Status: Acute - Plan cont current plan of care, PT/OT * continue cardizem CD, metoprolol and digoxin for rate control * she is not a candidate for chronic anticoagulation therapy due to her fall risk and noncompliance and previous GI bleed * medication reviewed as below * symptomatic treatment * ambulate with PT, if she is doing well, then will consider discharge tomorrow. Review of Systems - Review of Systems ENT: negative: Ear Pain, Ear Discharge, Nose Pain, Nose Discharge, Nose Congestion, Mouth Pain, Mouth Swelling, Throat Pain, Throat Swelling, Other Respiratory: negative: Cough, Dry, Shortness of Breath, Hemoptysis, SOB with Excertion, Pleuritic Pain, Sputum, Wheezing Cardiovascular: negative: chest pain, palpitations, orthopnea, paroxysmal nocturnal dyspnea, edema, light headedness, other Gastrointestinal: negative: Nausea, Vomiting, Abdominal Pain, Diarrhea, Constipation, Melena, Hematochezia, Other Genitourinary: negative: Dysuria, Frequency, Incontinence, Hematuria, Retention , Other Musculoskeletal: negative: Neck Pain, Shoulder Pain, Arm Pain, Back Pain, Hand Pain, Leg Pain, Foot Pain, Other Skin: negative: Rash, Lesions, Ellis, Bruising, Other - Medications/Allergies Allergies/Adverse Reactions: Allergies Allergy/AdvReac Type Severity Reaction Status Date / Time No Known Allergies Allergy Verified 07/12/13 22:42 Medications: Current Medications Hydrocodone Bitart/Acetaminophen ([place] 5/325) 1 tab PO Q4H PRN PRN Reason: Moderate Pain (4-6) Artificial Tears (Tears Naturale) 2 drop EA EYE PRN PRN PRN Reason: Dry Eyes Aspirin (Ecotrin) 81 mg PO DAILY [facility] Last Admin: 05/02/18 09:00 Dose: 81 mg Atorvastatin Calcium (Lipitor) 10 mg PO HS [facility] Last Admin: 05/01/18 19:55 Dose: 10 mg Bisacodyl (Dulcolax) 10 mg [place] DAILYPRN PRN PRN Reason: Constipation Calcium Carbonate (Tums) 1,000 mg PO Q4H PRN PRN Reason: Heartburn or Indigestion Cyanocobalamin (Vitamin B-12) 1,000 mcg PO DAILY [facility] Last Admin: 05/02/18 08:58 Dose: 1,000 mcg Cyclobenzaprine HCl (Flexeril) 5 mg PO BIDPRN PRN PRN Reason: Muscle Spasm Dextrose/Water (Dextrose 50%) 25 gm SLOW IVP PRN PRN PRN Reason: Hypoglycemia Digoxin (Lanoxin) 0.125 mg PO QAM [facility] Last Admin: 05/02/18 08:59 Dose: 0.125 mg Diltiazem HCl (Cardizem Cd) 180 mg PO DAILY [facility] Last Admin: 05/02/18 09:00 Dose: 180 mg Famotidine (Pepcid) 20 mg PO BID [facility] Last Admin: 05/02/18 08:58 Dose: 20 mg Folic Acid (Folvite) 1 mg PO DAILY [facility] Last Admin: 05/02/18 08:59 Dose: 1 mg Furosemide (Lasix) 20 mg PO DAILY [facility] Last Admin: 05/02/18 08:59 Dose: 20 mg Glucagon (Glucagon) 1 mg IM PRN PRN PRN Reason: Hypoglycemia Last Admin: 04/29/18 02:46 Dose: 1 mg Guaifenesin (Robitussin Sf) 200 mg PO Q4H PRN PRN Reason: Cough Hydralazine HCl (Apresoline) 10 mg SLOW IVP Q4H PRN PRN Reason: SBP > 180 and HR < 70 Dextrose/Water (D5w) 1,000 mls @ 0 mls/hr IV .Q0M PRN PRN Reason: Hypoglycemia Insulin Human Lispro (Humalog) 0 units SC .MILD SLIDING SCALE PRN; Protocol PRN Reason: MILD SLIDING SCALE Iron/Minerals/Multivitamins (Theragran M) 1 tab PO DAILY [facility] Last Admin: 05/02/18 08:59 Dose: 1 tab Loperamide HCl (Imodium) 2 mg PO PRN PRN PRN Reason: Diarrhea/Loose Stools Loratadine (Claritin) 10 mg PO DAILYPRN PRN PRN Reason: Sinus Symptoms Metoprolol Succinate (Toprol Xl) 50 mg PO DAILY [facility] Last Admin: 05/02/18 08:59 Dose: 50 mg Mineral Oil/White Petrolatum (Eucerin Cream) 0 gm TOP BIDPRN PRN PRN Reason: Dry Skin Miscellaneous Medication (Pharmacy To Dose) 1 each IVPB PRN PRN PRN Reason: EMPIRIC Ondansetron HCl (Zofran Odt) 4 mg PO Q6H PRN PRN Reason: Nausea/Vomiting Ondansetron HCl (Zofran) 4 mg IVP Q6H PRN PRN Reason: Nausea/Vomiting Senna/Docusate Sodium (Senokot S) 2 tab PO BID PRN PRN Reason: Constipation Sodium Chloride (Flush - Normal Saline) 10 ml IVF Q12HR [facility] Last Admin: 05/02/18 09:00 Dose: 10 ml Sodium Chloride (Flush - Normal Saline) 10 ml IVF PRN PRN PRN Reason: Saline Flush Last Admin: 05/02/18 01:44 Dose: 10 ml Sodium Chloride ([place] Nasal [place] 0.65%) 0 ml EA NARE QIDPRN PRN PRN Reason: Nasal Congestion Thiamine HCl (Thiamine) 100 mg PO DAILY [facility] Last Admin: 05/02/18 08:58 Dose: 100 mg Throat Lozenges (Cepastat Lozenges) 1 renetta PO Q2H PRN PRN Reason: Sore Throat Zolpidem Tartrate (Ambien) 5 mg PO HSPRN PRN PRN Reason: Insomnia
--- NOTE | 2018-05-02 17:16 | PDOC.CTH ---
Cardiology Progress Note - Subjective The pt seen and examined. No overnight events. No cardiac complaints. The pt had 3.2 sec pauses today. - Objective Vital Signs Temp Pulse Pulse Pulse Resp BP BP 05/02/18 16:00 98.0 F 70 16 05/02/18 14:22 91 90 108/69 120/62 05/02/18 12:00 98.4 F 90 16 05/02/18 08:59 89 05/02/18 07:35 05/02/18 07:30 98.3 F 89 16 BP BP Pulse Ox 05/02/18 16:00 117/60 96 05/02/18 14:22 05/02/18 12:00 118/63 99 05/02/18 08:59 05/02/18 07:35 100 05/02/18 07:30 112/64 100 Weight 141 lb 3.2 oz 05/01/18 05/02/18 05/03/18 06:59 06:59 06:59 Intake Total 1733 1440 Output Total 2650 600 Balance -917 840 - Physical Examination General/Neuro: alert & oriented x3 Neck: no JVD present Lungs: CTA Heart: other: (irregular) Abdomen: soft Extremities: other: (No edema) - Telemetry Telemetry Rhythm: Afib - Labs Result Diagrams: 05/02/18 06:07 05/02/18 06:07 Troponin/CKMB Troponin I Less than 0.010 ng/mL (< 0.028) 04/28/18 15:12 - Assessment/Plan 1. Paroxysmal Afib - currently rate controlled with digoxin, Diltiazem, and BBlocker. On ASA 81mg qd for now for high risk of fall and hx of GI bleed in past 2. Hx of GI bleeding in the past 3. Hypoglycemia and LOC due to this. 4. Acute on chronic diastolic heart failure- improving with bblocker and Lasix PO. 5. Hyponatremia - start fluid restriction 1500ml/day 6. ETOH abuse 7. s/p 3.2 sec pauses today - possible PM placement? Non compliance - Poor candidate for anti arrhythmics due to non compliance - Poor candidate for anticoagulation due to GI bleeding while on it in the past , ASA alone for stroke prophylaxis. Pt. seen and eval. by me. I agree with the A/P by the [employer]ING [employer]ATOR. Chest clear. Irreg., No edema. Review of Systems - Review of Systems Constitutional: reports: no symptoms reported EENTM: reports: no symptoms reported Respiratory: reports: no symptoms reported Cardiac (ROS): reports: no symptoms reported ABD/GI: reports: no symptoms reported : reports: no symptoms reported Musculoskeletal: reports: no symptoms reported Skin: reports: no symptoms reported
[2018-05-02] MEDS: Atorvastatin Calcium 10 MG TAB PO SCH (20:11)
[2018-05-03] MEDS: Digoxin 0.125 MG TAB PO SCH (09:20)
[2018-05-03] MEDS: Aspirin 81 mg Enteric Coated Tablet PO SCH (09:20)
[2018-05-03] MEDS: Famotidine 20 MG TAB PO SCH ×2 (09:20→21:28)
[2018-05-03] MEDS: Cyanocobalamin (Vitamin B-12) 1,000 MCG TAB PO SCH (09:20)
[2018-05-03] MEDS: Multivitamin W/ Minerals 1 TAB PO SCH (09:20)
[2018-05-03] MEDS: Folic Acid 1 MG TAB PO SCH (09:20)
[2018-05-03] MEDS: Furosemide 20 MG TAB PO SCH (09:21)
--- NOTE | 2018-05-03 13:09 | PDOC.PN ---
- Subjective Encounter Start Date: 05/03/18 Encounter Start Time: 07:45 -: old records requested/rev Patient seen and examined. No new complaints. No overnight events - Objective Resuscitation Status - Order Detail: 04/28/18 17:13 Resuscitation Status Routine Resuscitation Status: FULL: Full Resuscitation MAR Reviewed: Yes Vital Signs & Weight: Vital Signs (12 hours) Temp Pulse Resp BP BP Pulse Ox 05/03/18 11:28 97.6 F 90 15 114/77 98 05/03/18 07:57 97.8 F 78 13 102/55 L 98 05/03/18 04:00 97.9 F 97 16 117/56 L 99 Weight Weight 143 lb 12.8 oz I&O: 05/02/18 05/03/18 05/04/18 06:59 06:59 06:59 Intake Total 1440 1200 Output Total 600 1650 Balance 840 -450 Result Diagrams: 05/02/18 06:07 05/02/18 06:07 Additional Labs: Accuchecks 05/02/18 05/02/18 20:13 17:19 POC Glucose 243 H 171 H EKG Reviewed by me: Yes (afib) Phys Exam - Physical Examination Constitutional: NAD HEENT: PERRLA, moist MMs, sclera anicteric Neck: no JVD, supple Respiratory: no wheezing, no rales, no rhonchi Cardiovascular: no significant murmur, no rub, irregular Gastrointestinal: soft, non-tender, no distention, positive bowel sounds Musculoskeletal: no edema, pulses present Neurological: non-focal, normal sensation Psychiatric: normal affect, A&O x 3 Skin: no rash, normal turgor Dx/Plan (1) Acute on chronic diastolic ACC/AHA stage C congestive heart failure Code(s): I50.33 - ACUTE ON CHRONIC DIASTOLIC (CONGESTIVE) HEART FAILURE Status : Acute (2) Atrial fibrillation with RVR Code(s): I48.91 - UNSPECIFIED ATRIAL FIBRILLATION Status: Acute (3) Diabetes Mellitus Type 2 in Nonobese Code(s): E11.9 - TYPE 2 DIABETES MELLITUS WITHOUT COMPLICATIONS Status: Acute (4) Folate deficiency Code(s): E53.8 - DEFICIENCY OF OTHER SPECIFIED B GROUP VITAMINS Status: Acute (5) Hypoglycemia associated with type 2 diabetes mellitus Code(s): E11.649 - TYPE 2 DIABETES MELLITUS WITH HYPOGLYCEMIA WITHOUT COMA Status: Acute (6) Hyponatremia Code(s): E87.1 - HYPO-OSMOLALITY AND HYPONATREMIA Status: Acute (7) Lactic acidosis Code(s): E87.2 - ACIDOSIS Status: Acute (8) Alcohol abuse Code(s): F10.10 - ALCOHOL ABUSE, UNCOMPLICATED Status: Chronic (9) CAD (coronary artery disease) Code(s): I25.10 - ATHSCL HEART DISEASE OF [place] CORONARY ARTERY W/O ANG PCTRS Status: Chronic Qualifiers: Coronary Disease-Associated Artery/Lesion type: [place] artery [place] vs. transplanted heart: [place] heart Associated angina: without angina Qualified Code(s): I25.10 - Atherosclerotic heart disease of [place] coronary artery without angina pectoris (10) Dementia, alcoholic Code(s): F10.27 - ALCOHOL DEPENDENCE WITH ALCOHOL-INDUCED PERSISTING DEMENTIA Status: Chronic Qualifiers: Dementia behavioral disturbance: with behavioral disturbance Qualified Code (s): F10.27 - Alcohol dependence with alcohol-induced persisting dementia (11) Gastroesophageal reflux disease Code(s): K21.9 - GASTRO-ESOPHAGEAL REFLUX DISEASE WITHOUT ESOPHAGITIS Status: Chronic Qualifiers: Esophagitis presence: without esophagitis Qualified Code(s): K21.9 - Gastro -esophageal reflux disease without esophagitis (12) HTN (hypertension) Code(s): I10 - ESSENTIAL (PRIMARY) HYPERTENSION Status: Chronic Qualifiers: Hypertension type: essential hypertension Qualified Code(s): I10 - Essential (primary) hypertension (13) Macrocytic anemia Code(s): D53.9 - NUTRITIONAL ANEMIA, UNSPECIFIED Status: Chronic (14) Non compliance with medical treatment Code(s): Z91.19 - PATIENT'S NONCOMPLIANCE W OTH MEDICAL TREATMENT AND REGIMEN Status: Chronic (15) Hypomagnesemia Code(s): E83.42 - HYPOMAGNESEMIA Status: Acute (16) Sinus pause Code(s): I45.5 - OTHER SPECIFIED HEART BLOCK Status: Acute - Plan cont current plan of care * once cardiology clears, will consider discharge to home * at this point her heart rate controlled but had one time pause, she may have SSS and cardiology to decide about any need of pacemaker * medication reviewed as below * symptomatic treatment. Review of Systems - Review of Systems ENT: negative: Ear Pain, Ear Discharge, Nose Pain, Nose Discharge, Nose Congestion, Mouth Pain, Mouth Swelling, Throat Pain, Throat Swelling, Other Respiratory: negative: Cough, Dry, Shortness of Breath, Hemoptysis, SOB with Excertion, Pleuritic Pain, Sputum, Wheezing Cardiovascular: negative: chest pain, palpitations, orthopnea, paroxysmal nocturnal dyspnea, edema, light headedness, other Gastrointestinal: negative: Nausea, Vomiting, Abdominal Pain, Diarrhea, Constipation, Melena, Hematochezia, Other Genitourinary: negative: Dysuria, Frequency, Incontinence, Hematuria, Retention , Other Musculoskeletal: negative: Neck Pain, Shoulder Pain, Arm Pain, Back Pain, Hand Pain, Leg Pain, Foot Pain, Other Skin: negative: Rash, Lesions, Ellis, Bruising, Other - Medications/Allergies Allergies/Adverse Reactions: Allergies Allergy/AdvReac Type Severity Reaction Status Date / Time No Known Allergies Allergy Verified 07/12/13 22:42 Medications: Current Medications Hydrocodone Bitart/Acetaminophen ([place] 5/325) 1 tab PO Q4H PRN PRN Reason: Moderate Pain (4-6) Artificial Tears (Tears Naturale) 2 drop EA EYE PRN PRN PRN Reason: Dry Eyes Aspirin (Ecotrin) 81 mg PO DAILY [facility] Last Admin: 05/03/18 09:20 Dose: 81 mg Atorvastatin Calcium (Lipitor) 10 mg PO HS [facility] Last Admin: 05/02/18 20:11 Dose: 10 mg Bisacodyl (Dulcolax) 10 mg [place] DAILYPRN PRN PRN Reason: Constipation Calcium Carbonate (Tums) 1,000 mg PO Q4H PRN PRN Reason: Heartburn or Indigestion Cyanocobalamin (Vitamin B-12) 1,000 mcg PO DAILY [facility] Last Admin: 05/03/18 09:20 Dose: 1,000 mcg Cyclobenzaprine HCl (Flexeril) 5 mg PO BIDPRN PRN PRN Reason: Muscle Spasm Dextrose/Water (Dextrose 50%) 25 gm SLOW IVP PRN PRN PRN Reason: Hypoglycemia Digoxin (Lanoxin) 0.125 mg PO QAM [facility] Last Admin: 05/03/18 09:20 Dose: 0.125 mg Diltiazem HCl (Cardizem Cd) 180 mg PO DAILY [facility] Last Admin: 05/03/18 09:20 Dose: 180 mg Famotidine (Pepcid) 20 mg PO BID [facility] Last Admin: 05/03/18 09:20 Dose: 20 mg Folic Acid (Folvite) 1 mg PO DAILY [facility] Last Admin: 05/03/18 09:20 Dose: 1 mg Furosemide (Lasix) 20 mg PO DAILY [facility] Last Admin: 05/03/18 09:21 Dose: 20 mg Glucagon (Glucagon) 1 mg IM PRN PRN PRN Reason: Hypoglycemia Last Admin: 04/29/18 02:46 Dose: 1 mg Guaifenesin (Robitussin Sf) 200 mg PO Q4H PRN PRN Reason: Cough Hydralazine HCl (Apresoline) 10 mg SLOW IVP Q4H PRN PRN Reason: SBP > 180 and HR < 70 Dextrose/Water (D5w) 1,000 mls @ 0 mls/hr IV .Q0M PRN PRN Reason: Hypoglycemia Insulin Human Lispro (Humalog) 0 units [place] .MILD SLIDING SCALE PRN; Protocol PRN Reason: MILD SLIDING SCALE Iron/Minerals/Multivitamins (Theragran M) 1 tab PO DAILY [facility] Last Admin: 05/03/18 09:20 Dose: 1 tab Loperamide HCl (Imodium) 2 mg PO PRN PRN PRN Reason: Diarrhea/Loose Stools Loratadine (Claritin) 10 mg PO DAILYPRN PRN PRN Reason: Sinus Symptoms Metoprolol Succinate (Toprol Xl) 50 mg PO DAILY [facility] Last Admin: 05/03/18 09:20 Dose: 50 mg Mineral Oil/White Petrolatum (Eucerin Cream) 0 gm TOP BIDPRN PRN PRN Reason: Dry Skin Ondansetron HCl (Zofran Odt) 4 mg PO Q6H PRN PRN Reason: Nausea/Vomiting Ondansetron HCl (Zofran) 4 mg IVP Q6H PRN PRN Reason: Nausea/Vomiting Senna/Docusate Sodium (Senokot S) 2 tab PO BID PRN PRN Reason: Constipation Sodium Chloride (Flush - Normal Saline) 10 ml IVF Q12HR [facility] Last Admin: 05/03/18 09:25 Dose: 10 ml Sodium Chloride (Flush - Normal Saline) 10 ml IVF PRN PRN PRN Reason: Saline Flush Last Admin: 05/02/18 01:44 Dose: 10 ml Sodium Chloride ([place] Nasal [place] 0.65%) 0 ml [place] NARE QIDPRN PRN PRN Reason: Nasal Congestion Thiamine HCl (Thiamine) 100 mg PO DAILY [facility] Last Admin: 05/03/18 09:21 Dose: 100 mg Throat Lozenges (Cepastat Lozenges) 1 renetta PO Q2H PRN PRN Reason: Sore Throat Zolpidem Tartrate (Ambien) 5 mg PO HSPRN PRN PRN Reason: Insomnia
[2018-05-03] MEDS: Atorvastatin Calcium 10 MG TAB PO SCH (21:28)
[2018-05-04] MEDS: Multivitamin W/ Minerals 1 TAB PO SCH (09:03)
[2018-05-04] MEDS: Aspirin 81 mg Enteric Coated Tablet PO SCH (09:03)
[2018-05-04] MEDS: Furosemide 20 MG TAB PO SCH (09:03)
[2018-05-04] MEDS: Folic Acid 1 MG TAB PO SCH (09:03)
[2018-05-04] MEDS: Famotidine 20 MG TAB PO SCH (09:03)
[2018-05-04] MEDS: Digoxin 0.125 MG TAB PO SCH (09:03)
[2018-05-04] MEDS: Cyanocobalamin (Vitamin B-12) 1,000 MCG TAB PO SCH (09:03)
--- NOTE | 2018-05-04 11:36 | DIS ---
DATE OF ADMISSION: 04/28/2018 DATE OF DISCHARGE: 05/04/2018 PRIMARY CARE PHYSICIAN: Vero Whitehead MD DISCHARGE DISPOSITION: Home. PRIMARY DISCHARGE DIAGNOSES: 1. [id number] diastolic stage C heart failure. 2. Atrial fibrillation with rapid ventricular response. 3. Folate deficiency. 4. Hypomagnesemia. 5. Hyponatremia. 6. Hypokalemia. 7. Lactic acidosis, asymptomatic sinus falls. SECONDARY DISCHARGE DIAGNOSES: Noncompliance with medical treatment, history of GI bleed, alcohol abuse, macrocytic anemia, hypertension, gastroesophageal reflux disease, alcoholic dementia, coronary artery disease, chronic stage C diastolic heart failure, diabetes type 2, paroxysmal atrial fibrillation. PRIMARY PROCEDURE/OPERATION: None. RADIOLOGICAL INVESTIGATION: CT brain, negative. CT cervical spine, negative. Chest x-ray showed pulmonary vascular congestion. Echocardiography showed diastolic dysfunction. SIGNIFICANT LABORATORY DATA: WBC 12.5, hemoglobin 8.8, and platelet 283. INR 1.1. Sodium 128, creatinine 0.79, calcium 9.1, magnesium 1.7. Urinalysis normal. Blood culture negative. DISCHARGE MEDICATIONS: 1. Tylenol 650 mg q.4 hourly p.r.n. 2. Aspirin 325 mg daily. 3. Flexeril 5 mg b.i.d. p.r.n. 4. Lasix 20 mg daily. 5. Amaryl 2 mg p.o. daily. 6. Prinzide 02/05.5 one tab p.o. b.i.d. 7. Metformin 1000 mg p.o. b.i.d. 8. Zocor 20 mg p.o. at nightly. 9. Vitamin B12 1000 mcg p.o. daily. 10. Digoxin 0.125 mg p.o. daily. 11. Cardizem CD 180 mg p.o. daily. 12. Pepcid 20 mg p.o. b.i.d. 13. Folic acid 1 mg daily. 14. Thiamine 100 mg daily. 15. Multivitamin one tab daily. 16. Toprol-XL 50 mg p.o. daily. CONTRAINDICATION: The patient is not a good candidate for antiarrhythmic medication as well as chronic anticoagulation because of noncompliance and history of bleeding and fall risk. CODE STATUS: Full code. INPATIENT GRIPPER ATTACHER: Cardiology Team was following while in hospital. TEST RESULTS PENDING ON DISCHARGE: None. ALLERGIES: NO KNOWN DRUG ALLERGIES. DISCHARGE PLAN: Posthospital, the patient is instructed to follow up with primary care physician, Cardiology, and Heart Failure Clinic. HOSPITAL COURSE: A 68-year-old female, who was admitted in the hospital by Dr. Zuleta. Please see his H and P for further detail. The patient was admitted for increasing shortness of breath and palpitation. She was found with atrial fibrillation with RVR. She had abnormal electrolytes on admission. She had hypoglycemia. While in hospital, we corrected all abnormal electrolytes. This patient has problem with compliance and she has fall risks as well as previous GI bleed and that is why during this admission, Cardiology decided not to give her any anticoagulation therapy as well as antiarrhythmic therapy. Her rate was controlled with metoprolol, digoxin, and Cardizem. The patient remained stable while in hospital. Cardiology cleared her for discharge. The patient was seen and examined at bedside today. PHYSICAL EXAMINATION: VITAL SIGNS: Currently, temperature 98.0, pulse 61, respiratory rate 20, saturation 100% on room air, and blood pressure 122/59. Weight 144 pounds. GENERAL: The patient is currently alert, awake, in no obvious acute distress. HEENT: Head normocephalic and atraumatic. Eyes; pupils are round, reactive to light. Extraocular muscle intact. ENT; oropharynx within normal limits. Moist mucous membranes. NECK: Supple. No JVD. No thyromegaly. LUNGS: Clear without any rhonchi. CARDIAC: S1 and S2, appears regular without any murmur. ABDOMEN: Soft and benign. EXTREMITIES: No edema. NEUROLOGIC: Nonfocal examination. The patient is medically stable for discharge today. Job ID: [id number]
--- NOTE | 2018-05-04 13:31 | PDOC.PN ---
- Subjective Encounter Start Date: 05/04/18 Encounter Start Time: 07:50 Patient seen and examined. No new complaints. No overnight events - Objective Resuscitation Status - Order Detail: 04/28/18 17:13 Resuscitation Status Routine Resuscitation Status: FULL: Full Resuscitation MAR Reviewed: Yes Vital Signs & Weight: Vital Signs (12 hours) Temp Pulse Resp BP BP Pulse Ox 05/04/18 11:11 96.8 F L 92 17 122/75 96 05/04/18 07:43 98.0 F 61 12 122/59 L 100 05/04/18 04:00 97.7 F 86 18 117/58 L 99 Weight Weight 144 lb 8 oz I&O: 05/03/18 05/04/18 05/05/18 06:59 06:59 06:59 Intake Total 1200 1440 Output Total 1650 1300 Balance -450 140 Result Diagrams: 05/02/18 06:07 05/02/18 06:07 Additional Labs: Accuchecks 05/04/18 05/04/18 05/03/18 11:08 05:40 20:24 POC Glucose 179 H 238 H 181 H 05/03/18 05/03/18 16:58 10:52 POC Glucose 225 H 145 H EKG Reviewed by me: Yes Phys Exam - Physical Examination Constitutional: NAD HEENT: PERRLA, moist MMs, sclera anicteric Neck: no JVD, supple Respiratory: no wheezing, no rales, no rhonchi Cardiovascular: no significant murmur, no rub, irregular Gastrointestinal: soft, non-tender, no distention, positive bowel sounds Musculoskeletal: no edema, pulses present Neurological: non-focal, normal sensation Lymphatic: no nodes Psychiatric: normal affect, A&O x 3 Skin: no rash, normal turgor Dx/Plan (1) Acute on chronic diastolic ACC/AHA stage C congestive heart failure Code(s): I50.33 - ACUTE ON CHRONIC DIASTOLIC (CONGESTIVE) HEART FAILURE Status : Acute (2) Atrial fibrillation with RVR Code(s): I48.91 - UNSPECIFIED ATRIAL FIBRILLATION Status: Acute (3) Diabetes Mellitus Type 2 in Nonobese Code(s): E11.9 - TYPE 2 DIABETES MELLITUS WITHOUT COMPLICATIONS Status: Acute (4) Folate deficiency Code(s): E53.8 - DEFICIENCY OF OTHER SPECIFIED B GROUP VITAMINS Status: Acute (5) Hypoglycemia associated with type 2 diabetes mellitus Code(s): E11.649 - TYPE 2 DIABETES MELLITUS WITH HYPOGLYCEMIA WITHOUT COMA Status: Acute (6) Hyponatremia Code(s): E87.1 - HYPO-OSMOLALITY AND HYPONATREMIA Status: Acute (7) Lactic acidosis Code(s): E87.2 - ACIDOSIS Status: Acute (8) Alcohol abuse Code(s): F10.10 - ALCOHOL ABUSE, UNCOMPLICATED Status: Chronic (9) CAD (coronary artery disease) Code(s): I25.10 - ATHSCL HEART DISEASE OF [place] CORONARY ARTERY W/O ANG PCTRS Status: Chronic Qualifiers: Coronary Disease-Associated Artery/Lesion type: [place] artery [place] vs. transplanted heart: [place] heart Associated angina: without angina Qualified Code(s): I25.10 - Atherosclerotic heart disease of [place] coronary artery without angina pectoris (10) Dementia, alcoholic Code(s): F10.27 - ALCOHOL DEPENDENCE WITH ALCOHOL-INDUCED PERSISTING DEMENTIA Status: Chronic Qualifiers: Dementia behavioral disturbance: with behavioral disturbance Qualified Code (s): F10.27 - Alcohol dependence with alcohol-induced persisting dementia (11) Gastroesophageal reflux disease Code(s): K21.9 - GASTRO-ESOPHAGEAL REFLUX DISEASE WITHOUT ESOPHAGITIS Status: Chronic Qualifiers: Esophagitis presence: without esophagitis Qualified Code(s): K21.9 - Gastro -esophageal reflux disease without esophagitis (12) HTN (hypertension) Code(s): I10 - ESSENTIAL (PRIMARY) HYPERTENSION Status: Chronic Qualifiers: Hypertension type: essential hypertension Qualified Code(s): I10 - Essential (primary) hypertension (13) Macrocytic anemia Code(s): D53.9 - NUTRITIONAL ANEMIA, UNSPECIFIED Status: Chronic (14) Non compliance with medical treatment Code(s): Z91.19 - PATIENT'S NONCOMPLIANCE W OTH MEDICAL TREATMENT AND REGIMEN Status: Chronic (15) Hypomagnesemia Code(s): E83.42 - HYPOMAGNESEMIA Status: Acute - Plan cont current plan of care * medication reviewed as below * symptomatic treatment * see my discharge susana. Review of Systems - Review of Systems ENT: negative: Ear Pain, Ear Discharge, Nose Pain, Nose Discharge, Nose Congestion, Mouth Pain, Mouth Swelling, Throat Pain, Throat Swelling, Other Respiratory: negative: Cough, Dry, Shortness of Breath, Hemoptysis, SOB with Excertion, Pleuritic Pain, Sputum, Wheezing Cardiovascular: negative: chest pain, palpitations, orthopnea, paroxysmal nocturnal dyspnea, edema, light headedness, other Gastrointestinal: negative: Nausea, Vomiting, Abdominal Pain, Diarrhea, Constipation, Melena, Hematochezia, Other Genitourinary: negative: Dysuria, Frequency, Incontinence, Hematuria, Retention , Other Musculoskeletal: negative: Neck Pain, Shoulder Pain, Arm Pain, Back Pain, Hand Pain, Leg Pain, Foot Pain, Other Skin: negative: Rash, Lesions, Ellis, Bruising, Other - Medications/Allergies Allergies/Adverse Reactions: Allergies Allergy/AdvReac Type Severity Reaction Status Date / Time No Known Allergies Allergy Verified 07/12/13 22:42 Medications: Current Medications Hydrocodone Bitart/Acetaminophen ([place] 5/325) 1 tab PO Q4H PRN PRN Reason: Moderate Pain (4-6) Artificial Tears (Tears Naturale) 2 drop EA EYE PRN PRN PRN Reason: Dry Eyes Aspirin (Ecotrin) 81 mg PO DAILY [facility] Last Admin: 05/04/18 09:03 Dose: 81 mg Atorvastatin Calcium (Lipitor) 10 mg PO HS [facility] Last Admin: 05/03/18 21:28 Dose: 10 mg Bisacodyl (Dulcolax) 10 mg [place] DAILYPRN PRN PRN Reason: Constipation Calcium Carbonate (Tums) 1,000 mg PO Q4H PRN PRN Reason: Heartburn or Indigestion Cyanocobalamin (Vitamin B-12) 1,000 mcg PO DAILY [facility] Last Admin: 05/04/18 09:03 Dose: 1,000 mcg Cyclobenzaprine HCl (Flexeril) 5 mg PO BIDPRN PRN PRN Reason: Muscle Spasm Dextrose/Water (Dextrose 50%) 25 gm SLOW IVP PRN PRN PRN Reason: Hypoglycemia Digoxin (Lanoxin) 0.125 mg PO QAM [facility] Last Admin: 05/04/18 09:03 Dose: 0.125 mg Diltiazem HCl (Cardizem Cd) 180 mg PO DAILY [facility] Last Admin: 05/04/18 09:03 Dose: 180 mg Famotidine (Pepcid) 20 mg PO BID [facility] Last Admin: 05/04/18 09:03 Dose: 20 mg Folic Acid (Folvite) 1 mg PO DAILY [facility] Last Admin: 05/04/18 09:03 Dose: 1 mg Furosemide (Lasix) 20 mg PO DAILY [facility] Last Admin: 05/04/18 09:03 Dose: 20 mg Glucagon (Glucagon) 1 mg IM PRN PRN PRN Reason: Hypoglycemia Last Admin: 04/29/18 02:46 Dose: 1 mg Guaifenesin (Robitussin Sf) 200 mg PO Q4H PRN PRN Reason: Cough Hydralazine HCl (Apresoline) 10 mg SLOW IVP Q4H PRN PRN Reason: SBP > 180 and HR < 70 Dextrose/Water (D5w) 1,000 mls @ 0 mls/hr IV .Q0M PRN PRN Reason: Hypoglycemia Insulin Human Lispro (Humalog) 0 units [place] .MILD SLIDING SCALE PRN; Protocol PRN Reason: MILD SLIDING SCALE Iron/Minerals/Multivitamins (Theragran M) 1 tab PO DAILY [facility] Last Admin: 05/04/18 09:03 Dose: 1 tab Loperamide HCl (Imodium) 2 mg PO PRN PRN PRN Reason: Diarrhea/Loose Stools Loratadine (Claritin) 10 mg PO DAILYPRN PRN PRN Reason: Sinus Symptoms Metoprolol Succinate (Toprol Xl) 50 mg PO DAILY [facility] Last Admin: 05/04/18 09:03 Dose: 50 mg Mineral Oil/White Petrolatum (Eucerin Cream) 0 gm TOP BIDPRN PRN PRN Reason: Dry Skin Ondansetron HCl (Zofran Odt) 4 mg PO Q6H PRN PRN Reason: Nausea/Vomiting Ondansetron HCl (Zofran) 4 mg IVP Q6H PRN PRN Reason: Nausea/Vomiting Senna/Docusate Sodium (Senokot S) 2 tab PO BID PRN PRN Reason: Constipation Sodium Chloride (Flush - Normal Saline) 10 ml IVF Q12HR [facility] Last Admin: 05/04/18 09:04 Dose: 10 ml Sodium Chloride (Flush - Normal Saline) 10 ml IVF PRN PRN PRN Reason: Saline Flush Last Admin: 05/02/18 01:44 Dose: 10 ml Sodium Chloride ([place] Nasal [place] 0.65%) 0 ml EA NARE QIDPRN PRN PRN Reason: Nasal Congestion Thiamine HCl (Thiamine) 100 mg PO DAILY [facility] Last Admin: 01/08/19 09:03 Dose: 100 mg Throat Lozenges (Cepastat Lozenges) 1 renetta PO Q2H PRN PRN Reason: Sore Throat Zolpidem Tartrate (Ambien) 5 mg PO HSPRN PRN PRN Reason: Insomnia
[2018-05-04 16:12] VITALS: BP 110/69; TEMP 97.9
== END 2018-05-04 17:10 | disposition home or self-care (01) | DRG 637 ==
LOC: ERS 14:27 → EEVIPCON 16:35 → ERHOLD 16:35 → 2NO 04-29 01:47
PROVIDERS: ADMIT Internal Medicine; ATTEND Internal Medicine
DX: E11.649 Type 2 diabetes mellitus with hypoglycemia without coma (principal); I50.33 Acute on chronic diastolic (congestive) heart failure; E87.1 Hypo-osmolality and hyponatremia; F10.27 Alcohol dependence with alcohol-induced persisting dementia; E87.2 Acidosis; R68.0 Hypothermia, not associated with low environmental temperature; I11.0 Hypertensive heart disease with heart failure; I48.0 Paroxysmal atrial fibrillation; I45.5 Other specified heart block; E87.5 Hyperkalemia; I25.10 Atherosclerotic heart disease of native coronary artery without angina pectoris; D53.9 Nutritional anemia, unspecified; E83.42 Hypomagnesemia; K21.9 Gastro-esophageal reflux disease without esophagitis; E53.8 Deficiency of other specified B group vitamins; I25.2 Old myocardial infarction; Z87.19 Personal history of other diseases of the digestive system; Z91.19 Patient's noncompliance with other medical treatment and regimen; Z86.73 Personal history of transient ischemic attack (TIA), and cerebral infarction without residual deficits; Z79.84 Long term (current) use of oral hypoglycemic drugs
CPT/HCPCS: 36415; 36416; 70450; 71045; 72125; 80048; 80053; 80202; 81001; 82550; 82607; 82746; 83605; 83735; 83880; 84145; 84484; 85025; 85610; 85730; 87040; 93005; 93306; 93798; 96361; 96365; 96366; 96367; 96372; 96375; J0692; J1160; J1610; J1650; J3370; J3475; J7050

== ENCOUNTER 2018-05-10 08:17 | Inpatient (IN) | payer MEDICARE ==
[2018-05-10 08:54] LABS: #Basophils 0.1 thou/uL (0.0-0.2); #Eosinphils 0.1 thou/uL (0.0-0.7); #Lymphocytes 4.5 thou/uL (1.20-3.40); #Monocytes 1.3 thou/uL (0.11-0.59); #Neutrophils 10.1 thou/uL (1.40-6.50); %Basophils 0.9 % (0.0-1.0); %Eosinophils 0.8 % (0.0-10.0); %Lymphocytes 27.9 % (21.0-51.0); %Monocytes 7.8 % (0.0-10.0); %Neutrophils 62.5 % (42.0-75.0); Hemoglobin 10.8 g/dL (12.0-16.0); Mean Corpuscular HGB CONC 32.4 g/dL (32.0-36.0); Mean Corpuscular Hemoglobin 33.9 pg (27.0-31.0); Platelet Count 365 thou/uL (130-400); RBC Distribution Width 15.5 % (11.5-14.5); White Blood Cell (WBC) Count 16.2 thou/uL (4.8-10.8)
[2018-05-10 09:16] LABS: ALT (SGPT) 14 U/L (8-55); AST (SGOT) 26 U/L (5-34); Albumin 3.7 g/dL (3.4-4.8); Alkaline Phosphatase 128 U/L (40-150); Anion Gap 16 mmol/L (10-20); BUN (Urea Nitrogen) 10 mg/dL (9.8-20.1); Bilirubin, Total 0.2 mg/dL (0.2-1.2); Calc. Creatinine Clearance 0 mL/min (70-130); Calcium 10.1 mg/dL (7.8-10.44); Carbon Dioxide 21 mmol/L (23-31); Chloride 98 mmol/L (98-107); Estimated GFR-MDRD 47; Globulin 4.4 g/dL (2.4-3.5); Potassium 5.9 mmol/L (3.5-5.1); Protein, Total 8.1 g/dL (6.0-8.3); Sodium 129 mmol/L (136-145)
[2018-05-10 09:26] LABS: Glucose 40 mg/dL (80-115)
[2018-05-10] MEDS ORDERED: Metoprolol Tartrate 5 MG/5 ML VIAL ONE (10:10)
--- NOTE | 2018-05-10 10:11 | CT ---
HEAD CT NONCONTRAST: Date: 05/10/18 COMPARISON: 04/28/18. INDICATION: Dizziness. FINDINGS: Stable mild parenchymal volume loss. Ventricular system is normal in size. No intracranial hemorrhage , mass effect, or midline shift. There is stable mild chronic ischemic disease of cerebral [place]. Imaged paranasal sinuses and mastoid air cells are clear. IMPRESSION: 1. No acute intracranial hemorrhage or mass effect. 2. Stable mild chronic ischemic disease. POS: [facility]
--- NOTE | 2018-05-10 10:53 | RAD ---
PA AND LATERAL CHEST RADIOGRAPH: Date: 05-10-18 History: Shortness of breath and dizziness. Cough and congestion for three days. Comparison: 04-28-18 FINDINGS: Cardiac silhouette and pulmonary vasculature are within normal limits. Perihilar interstitial densiti es on the prior study have improved and may be related to improvement in positioning and depth of ins piration. No consolidation or pleural fluid seen on today's exam. There is mild wedge shaped deformit ies involving the L1 and L3 vertebral bodies, likely related to remote compression fractures which we re also seen on prior views of the lumbar spine from study of 06-24-13. IMPRESSION: 1. No acute cardiopulmonary process. 2. Remote mild wedge shaped compression fractures involving the L1 and L3 vertebral bodies. POS: [facility]
[2018-05-10] MEDS ORDERED: Dextrose 50% Abboject 50 ML SYRINGE ONE (11:20)
[2018-05-10 13:29] LABS: Bilirubin Negative (Negative); Blood, Urine Negative (Negative); Clarity CLEAR (Clear); Glucose, Urine (Dipstick) 500 mg/dL (Negative); Leukocyte Negative (Negative); Nitrite Negative (Negative); Protein, Urine (Dipstick) Negative (Neg-Trace); Specific Gravity, Urine 1.009 (1.002-1.036); Urobilinogen 0.2 mg/dL (0.2-1.0)
--- NOTE | 2018-05-10 13:56 | HP ---
PRIMARY CARE PHYSICIAN: Vero Whitehead MD REASON FOR ADMISSION: Hypoglycemia, dizziness, and weakness. HISTORY OF PRESENT ILLNESS: A 68-year-old female who was recently admitted in our hospital on April 28, 2018; at that time, the patient had echocardiography which showed EF 40% to 45%. The patient was discharged on May 04, 2018. During that admission, the patient had atrial fibrillation with rapid ventricular response, which was controlled with medication. She was not a candidate for any kind of antiarrhythmic medication or any chronic anticoagulation. She also had acute on chronic diastolic stage C heart failure. She had also abnormal electrolytes with hypomagnesemia, hyponatremia, and hypokalemia, and she was found with folate deficiency. Today, she came to emergency room because she is feeling that she has no energy, and she was feeling dizzy and weak. She denies any drinking alcohol. She denies any associated fever, chills, or flu-like illness. She denies any UTI symptoms. She denies any constipation, diarrhea, melena, or hematochezia. The patient reports that she took all her medication which was prescribed last admission. In the emergency room, the patient had slight atrial fibrillation with RVR, but it was improved in the emergency room. She is also feeling a little bit congestion in her nose, and she has dry cough without any hemoptysis or pleuritic chest pain. She did not have any fever. REVIEW OF SYSTEMS: CONSTITUTIONAL: Negative for weight loss or gain, ability to conduct usual activities. SKIN: Negative for rash, itching. EYES: Negative for double vision, pain. ENT/MOUTH: Negative for nose bleeding, neck stiffness, pain, tenderness. CARDIOVASCULAR: Negative for palpitations, dyspnea on exertion, orthopnea. RESPIRATORY: Negative for shortness of breath, wheezing, cough, hemoptysis, fever or night sweats. GASTROINTESTINAL: Negative for poor appetite, abdominal pain, heartburn, nausea, vomiting, constipation, or diarrhea. GENITOURINARY: Negative for urgency, frequency, dysuria, nocturia. MUSCULOSKELETAL: Negative for pain, swelling. NEUROLOGIC/PSYCHIATRIC: Negative for anxiety, depression. ALLERGY/IMMUNOLOGIC: Negative for skin rash, bleeding tendency. Please see my HPI for pertinent positive and negative. All other review of systems reviewed and negative except as mentioned in HPI. PAST MEDICAL HISTORY: History of coronary artery disease, paroxysmal atrial fibrillation, diabetes type 2, gastroesophageal reflux disease, hypertension, history of CVA, alcoholic dementia, macrocytic anemia, gastroesophageal reflux disease, history of GI bleed in the past, and alcohol abuse. PAST SURGICAL HISTORY: Right arm surgery and hysterectomy. PAST PSYCHIATRIC HISTORY: Reviewed and negative. SOCIAL HISTORY: The patient has a history of alcohol abuse in the past, but she currently says that she has not used alcohol for a while. She lives with her niece. No history of other illicit drug abuse. FAMILY HISTORY: Diabetes and hypertension run among several family members. EMERGENCY ROOM COURSE: The patient was given IV fluid, D50, and Lopressor 2.5 mg IV. ALLERGIES: NO KNOWN DRUG ALLERGIES. CURRENT HOME MEDICATIONS: The patient was discharged to home on following medications; 1. Aspirin 325 mg daily. 2. Flexeril 5 mg b.i.d. p.r.n. 3. Lasix 20 mg daily. 4. Amaryl 2 mg p.o. daily. 5. Prinzide 02/05.5 one tablet p.o. daily. 6. Metformin 1000 mg p.o. b.i.d. 7. Zocor 20 mg p.o. at bedtime. 8. Vitamin B12, 1000 mcg p.o. daily. 9. Digoxin 0.125 mg p.o. daily. 10. Pepcid 20 mg b.i.d. 11. Folic acid 1 mg daily. 12. Toprol-XL 50 mg daily. 13. Multivitamin one tablet p.o. daily. 14. Thiamine 100 mg p.o. daily. PHYSICAL EXAMINATION: VITAL SIGNS: Currently, blood pressure 117/79, pulse 82 and irregular, respiratory rate 16, temperature 97.5, and saturation is 100% on room air. Weight 68 kg. GENERAL: The patient is currently alert, awake, in no obvious acute distress. HEENT: Head; normocephalic, atraumatic. Eyes; pupils round, reactive to light. Extraocular muscles intact. No nystagmus. NECK: Supple. No JVD. No thyromegaly. No carotid bruit. No jugular venous distention. LUNGS: Clear to auscultation without any rhonchi or rales. CARDIAC: S1, S2 irregular. No murmur. No gallop. No rub. ABDOMEN: Soft. No peritoneal sign. No epigastric tenderness. No Rubin sign. No organomegaly. No mass. BACK: Unremarkable. No CVA tenderness. EXTREMITIES: Upper extremities; passive movement of all joints are normal. LOWER EXTREMITIES: No edema. No calf tenderness. Good distal pulsation. SKIN: No skin rash. HEMATOLOGICAL SYSTEM: No lymphadenopathy. PSYCHIATRIC: Normal affect. SIGNIFICANT LABORATORY DATA: EKG showing atrial fibrillation with rapid ventricular response with heart rate 111, nonspecific ST-T changes. CT brain showing chronic ischemic white matter changes. No acute intracranial process. CBC; WBC 16.2, hemoglobin 10.8, and platelets 365. BMP; sodium 129, potassium 5.9, chloride 98, carbon dioxide 21, anion gap 16, BUN 10, creatinine 1.35, glucose 40, and calcium 10.1. LFT; AST 26, ALT 14, alkaline phosphatase 128, and albumin 3.7. Troponin 0.019. BNP 255. Chest x-ray, based on my review, no acute cardiopulmonary process. wedge-shaped compression fracture of L1, L2, and L3 vertebral bodies. Recent echocardiography showed EF 40% to 45%. ASSESSMENT AND PLAN: 1. Hypoglycemia associated with diabetes type 2, likely due to her oral hypoglycemic agent and her poor p.o. intake. At this point, D50 given. The patient will be given D10 at 50 mL per hour to prevent recurrent hypoglycemia. We will hold on glimepiride and metformin therapy. 2. Dizziness and generalized weakness, likely related with hypoglycemia and associated mild volume depletion. The patient will be given D10, and we will monitor in the hospital. As the patient has recurrent admission in the hospital and she is weak, we will consider PT and OT evaluation and possible rehab screen. 3. Chronic diastolic heart failure, stage C. Currently, the patient is euvolemic. We will hold on Lasix therapy. 4. Hyponatremia and hyperkalemia, most likely related with lisinopril and poor p.o. intake as well as she has chronic hyponatremia. We will check random cortisol, TSH, urine and plasma osmolality. Fluid restriction will maintain, and we will repeat BMP tomorrow. 5. Dyslipidemia. Continue Zocor 20 mg p.o. at bedtime. 6. Compression fracture of lumbar vertebra. Flexeril p.r.n. basis and pain medication p.r.n. basis. 7. Atrial fibrillation with rapid ventricular response. Continue Toprol-XL 50 mg daily and digoxin 0.125 mg p.o. daily. We will use p.r.n. basis p.o. Cardizem for rapid rate. 8. Alcohol abuse and folate deficiency. Continue folic acid and vitamin B12 therapy along with thiamine and multivitamin. 9. Macrocytic anemia. Continue folic acid, vitamin B12, thiamine, and multivitamin therapy. 10. Leukocytosis. We will check urinalysis and send urine culture. We will repeat CBC tomorrow. 11. Deep venous thrombosis prophylaxis. SCD boots. 12. Gastrointestinal prophylaxis. Pepcid 20 mg p.o. b.i.d. CODE STATUS: The patient is full code. DISPOSITION PLAN: Based on clinical course, we are expecting the patient's stay in hospital 24 hours. Plan of care discussed with the patient in detail. Job ID: [id number]
[2018-05-10 18:05] VITALS: BMI 24.1
[2018-05-10] MEDS ORDERED: Dextrose 10% in Water 1,000 ML IV SCH (18:06)
[2018-05-10] MEDS ORDERED: Bisacodyl 10 MG SUPP PR PRN (18:06)
[2018-05-10] MEDS ORDERED: Loperamide HCl 2 MG CAP PO PRN (18:06)
[2018-05-10] MEDS ORDERED: Senokot S 8.6-50 MG TAB PO PRN (18:06)
[2018-05-10] MEDS ORDERED: HumaLOG 300 UNITS/3 ML VIAL SC PRN (18:06)
[2018-05-10] MEDS ORDERED: Ondansetron ODT 4 MG TAB PO PRN (18:06)
[2018-05-10] MEDS ORDERED: Ondansetron PF 4 MG/2 ML Vial IVP PRN (18:06)
[2018-05-10] MEDS ORDERED: Cyclobenzaprine 10 MG TAB PO PRN (18:06)
[2018-05-10] MEDS ORDERED: Loratadine 10 MG TAB PO PRN (18:06)
[2018-05-10] MEDS ORDERED: Calcium Carbonate 500 MG ChewTAB PO PRN (18:06)
[2018-05-10] MEDS ORDERED: Dextrose 5% in Water 1,000 ML IV PRN (18:06)
[2018-05-10] MEDS ORDERED: Cepastat Lozenges 1 LOZ PO PRN (18:06)
[2018-05-10] MEDS ORDERED: Artificial Tears 18 DROP/0.9 ML EA EYE PRN (18:06)
[2018-05-10] MEDS ORDERED: Dextrose 50% Abboject 50 ML SYRINGE SLOW IVP PRN (18:06)
[2018-05-10] MEDS ORDERED: Diabetic Tussin 200 MG/10 ML UDCUP PO PRN (18:06)
[2018-05-10] MEDS ORDERED: Acetaminophen 325 MG TAB PO PRN (18:06)
[2018-05-10] MEDS ORDERED: Sodium Chloride 0.65% Nasal 44 ML BOT EA NARE PRN (18:06)
[2018-05-10] MEDS ORDERED: Zolpidem Tartrate 5 MG TAB PO PRN (18:06)
[2018-05-10] MEDS ORDERED: Eucerin (Mineral Oil/Petrolatum,White) 30 gm Jar TOP PRN (18:06)
[2018-05-10] MEDS ORDERED: hydrALAZINE 20 MG/ML VIAL SLOW IVP PRN (18:06)
[2018-05-10] MEDS: Atorvastatin Calcium 10 MG TAB PO SCH (20:50)
[2018-05-10] MEDS: Famotidine 20 MG TAB PO SCH (20:50)
[2018-05-10 20:59] LABS: Thyroid Stimulating Hormone 1.2453 uIU/mL (0.35-4.94)
[2018-05-10 22:35] LABS: Osmolality, Urine 256 mOsm/kg (300-900)
[2018-05-10 22:40] LABS: Sodium, Urine 53 mmol/L (Not Available)
[2018-05-11 05:45] LABS: #Basophils 0.1 thou/uL (0.0-0.2); #Eosinphils 0.3 thou/uL (0.0-0.7); #Lymphocytes 3.8 thou/uL (1.20-3.40); #Monocytes 1.3 thou/uL (0.11-0.59); #Neutrophils 6.7 thou/uL (1.40-6.50); %Eosinophils 2.1 % (0.0-10.0); %Lymphocytes 31.2 % (21.0-51.0); %Monocytes 10.9 % (0.0-10.0); %Neutrophils 54.8 % (42.0-75.0); Hemoglobin 9.8 g/dL (12.0-16.0); Mean Corpuscular HGB CONC 32.3 g/dL (32.0-36.0); Mean Corpuscular Hemoglobin 33.4 pg (27.0-31.0); Mean Platelet Volume 7.3 fL (7.4-10.4); Platelet Count 320 thou/uL (130-400); RBC Distribution Width 15.6 % (11.5-14.5); Red Blood Cell (RBC) Count 2.93 mill/uL (4.20-5.40); White Blood Cell (WBC) Count 12.2 thou/uL (4.8-10.8)
[2018-05-11 06:09] LABS: ALT (SGPT) 12 U/L (8-55); AST (SGOT) 21 U/L (5-34); Albumin 3.1 g/dL (3.4-4.8); Alkaline Phosphatase 110 U/L (40-150); Anion Gap 14 mmol/L (10-20); BUN (Urea Nitrogen) 7 mg/dL (9.8-20.1); Bilirubin, Total 0.2 mg/dL (0.2-1.2); Calc. Creatinine Clearance 61 mL/min (70-130); Calcium 9.3 mg/dL (7.8-10.44); Carbon Dioxide 22 mmol/L (23-31); Chloride 98 mmol/L (98-107); Estimated GFR-MDRD 81; Globulin 3.7 g/dL (2.4-3.5); Potassium 5.3 mmol/L (3.5-5.1); Protein, Total 6.8 g/dL (6.0-8.3); Sodium 129 mmol/L (136-145)
[2018-05-11 06:13] LABS: Glucose 40 mg/dL (80-115)
[2018-05-11] MEDS: Cyanocobalamin (Vitamin B-12) 1,000 MCG TAB PO SCH (08:49)
[2018-05-11] MEDS: Digoxin 0.125 MG TAB PO SCH (08:49)
[2018-05-11] MEDS: Folic Acid 1 MG TAB PO SCH (08:49)
[2018-05-11] MEDS: Multivitamin W/ Minerals 1 TAB PO SCH (08:49)
[2018-05-11] MEDS: Aspirin 325 MG TAB PO SCH (08:49)
--- NOTE | 2018-05-11 10:12 | PDOC.PN ---
- Subjective Encounter Start Date: 05/11/18 Encounter Start Time: 07:00 still has hypoglycemia, but has poor apatitie, overall feels better today - Objective Resuscitation Status - Order Detail: 05/10/18 13:04 Resuscitation Status Routine Resuscitation Status: FULL: Full Resuscitation MAR Reviewed: Yes Vital Signs & Weight: Vital Signs (12 hours) Temp Pulse Resp BP BP Pulse Ox 05/11/18 08:50 106 H 05/11/18 07:36 97.7 F 146 H 16 115/68 98 05/11/18 04:24 98.3 F 98 19 93/61 100 05/10/18 23:48 98.3 F 105 H 12 104/57 L 99 Weight Weight 132 lb 1 oz I&O: 05/10/18 05/11/18 05/12/18 06:59 06:59 06:59 Intake Total 360 Output Total 1400 Balance -1040 Result Diagrams: 05/11/18 05:17 05/11/18 05:17 Additional Labs: Accuchecks 05/11/18 05/11/18 05/11/18 07:18 06:19 05:38 POC Glucose 206 H 60 L 46 L* 05/10/18 05/10/18 05/10/18 20:49 15:19 12:56 POC Glucose 246 H 247 H 230 H 05/10/18 10:15 POC Glucose 55 L* Phys Exam - Physical Examination Constitutional: NAD HEENT: PERRLA, moist MMs, sclera anicteric Neck: no JVD, supple Respiratory: no wheezing, no rales, no rhonchi Cardiovascular: no significant murmur, irregular Gastrointestinal: soft, non-tender, no distention, positive bowel sounds Musculoskeletal: no edema, pulses present Neurological: non-focal, normal sensation Lymphatic: no nodes Psychiatric: normal affect, A&O x 3 Skin: no rash, normal turgor Dx/Plan (1) Hyperkalemia Code(s): E87.5 - HYPERKALEMIA Status: Acute Comment: improving, dc lisinopril (2) Hypoglycemia associated with type 2 diabetes mellitus Code(s): E11.649 - TYPE 2 DIABETES MELLITUS WITH HYPOGLYCEMIA WITHOUT COMA Status: Acute Comment: dc glimiperide (3) Hyponatremia Code(s): E87.1 - HYPO-OSMOLALITY AND HYPONATREMIA Status: Acute (4) Leucocytosis Code(s): D72.829 - ELEVATED WHITE BLOOD CELL COUNT, UNSPECIFIED Status: Acute (5) Alcohol abuse Code(s): F10.10 - ALCOHOL ABUSE, UNCOMPLICATED Status: Chronic (6) CAD (coronary artery disease) Code(s): I25.10 - ATHSCL HEART DISEASE OF [place] CORONARY ARTERY W/O ANG PCTRS Status: Chronic Qualifiers: Coronary Disease-Associated Artery/Lesion type: [place] artery [place] vs. transplanted heart: [place] heart Associated angina: without angina Qualified Code(s): I25.10 - Atherosclerotic heart disease of [place] coronary artery without angina pectoris (7) Chronic atrial fibrillation Code(s): I48.2 - CHRONIC ATRIAL FIBRILLATION Status: Chronic (8) Chronic stage c diastolic heart failure Code(s): I50.32 - CHRONIC DIASTOLIC (CONGESTIVE) HEART FAILURE Status: Chronic (9) Dementia, alcoholic Code(s): F10.27 - ALCOHOL DEPENDENCE WITH ALCOHOL-INDUCED PERSISTING DEMENTIA Status: Chronic Qualifiers: Dementia behavioral disturbance: with behavioral disturbance Qualified Code (s): F10.27 - Alcohol dependence with alcohol-induced persisting dementia (10) Folate deficiency Code(s): E53.8 - DEFICIENCY OF OTHER SPECIFIED B GROUP VITAMINS Status: Chronic (11) Gastroesophageal reflux disease Code(s): K21.9 - GASTRO-ESOPHAGEAL REFLUX DISEASE WITHOUT ESOPHAGITIS Status: Chronic Qualifiers: Esophagitis presence: without esophagitis Qualified Code(s): K21.9 - Gastro -esophageal reflux disease without esophagitis (12) HTN (hypertension) Code(s): I10 - ESSENTIAL (PRIMARY) HYPERTENSION Status: Chronic Qualifiers: Hypertension type: essential hypertension Qualified Code(s): I10 - Essential (primary) hypertension (13) Macrocytic anemia Code(s): D53.9 - NUTRITIONAL ANEMIA, UNSPECIFIED Status: Chronic (14) Non compliance with medical treatment Code(s): Z91.19 - PATIENT'S NONCOMPLIANCE W OTH MEDICAL TREATMENT AND REGIMEN Status: Chronic (15) Diabetes Mellitus Type 2 in Nonobese Code(s): E11.9 - TYPE 2 DIABETES MELLITUS WITHOUT COMPLICATIONS Status: Chronic - Plan cont current plan of care, PT/OT, social science instructor * overall stable * await rehab assessment * she is not a candidate for chronic anticoagulation and her rate is controlled * will dc glimipiride, lisinopril on discharge meds * medication reviewed as below * symptomatic treatment. Review of Systems - Review of Systems ENT: negative: Ear Pain, Ear Discharge, Nose Pain, Nose Discharge, Nose Congestion, Mouth Pain, Mouth Swelling, Throat Pain, Throat Swelling, Other Respiratory: negative: Cough, Dry, Shortness of Breath, Hemoptysis, SOB with Excertion, Pleuritic Pain, Sputum, Wheezing Cardiovascular: negative: chest pain, palpitations, orthopnea, paroxysmal nocturnal dyspnea, edema, light headedness, other Gastrointestinal: negative: Nausea, Vomiting, Abdominal Pain, Diarrhea, Constipation, Melena, Hematochezia, Other Genitourinary: negative: Dysuria, Frequency, Incontinence, Hematuria, Retention , Other Musculoskeletal: negative: Neck Pain, Shoulder Pain, Arm Pain, Back Pain, Hand Pain, Leg Pain, Foot Pain, Other Skin: negative: Rash, Lesions, Ellis, Bruising, Other - Medications/Allergies Allergies/Adverse Reactions: Allergies Allergy/AdvReac Type Severity Reaction Status Date / Time No Known Allergies Allergy Verified 05/10/18 20:02 Medications: Current Medications Acetaminophen (Tylenol) 650 mg PO Q4H PRN PRN Reason: Headache/Fever/Mild Pain (1-3) Hydrocodone Bitart/Acetaminophen ([place] 5/325) 1 tab PO Q4H PRN PRN Reason: Moderate Pain (4-6) Artificial Tears (Tears Naturale) 2 drop EA EYE PRN PRN PRN Reason: Dry Eyes Aspirin (Aspirin) 325 mg PO DAILY [facility] Last Admin: 05/11/18 08:49 Dose: 325 mg Atorvastatin Calcium (Lipitor) 10 mg PO HS [facility] Last Admin: 05/10/18 20:50 Dose: 10 mg Bisacodyl (Dulcolax) 10 mg ID DAILYPRN PRN PRN Reason: Constipation Calcium Carbonate (Tums) 1,000 mg PO Q4H PRN PRN Reason: Heartburn or Indigestion Cyanocobalamin (Vitamin B-12) 1,000 mcg PO DAILY [facility] Last Admin: 05/11/18 08:49 Dose: 1,000 mcg Cyclobenzaprine HCl (Flexeril) 10 mg PO TIDPRN PRN PRN Reason: Muscle Spasm Dextrose/Water (Dextrose 50%) 25 gm SLOW IVP PRN PRN PRN Reason: Hypoglycemia Last Admin: 05/11/18 06:35 Dose: 25 gm Digoxin (Lanoxin) 0.125 mg PO DAILY [facility] Last Admin: 05/11/18 08:49 Dose: 0.125 mg Famotidine (Pepcid) 20 mg PO 2100 [facility] Last Admin: 05/10/18 20:50 Dose: 20 mg Folic Acid (Folvite) 1 mg PO DAILY [facility] Last Admin: 05/11/18 08:49 Dose: 1 mg Glucagon (Glucagon) 1 mg IM PRN PRN PRN Reason: Hypoglycemia Guaifenesin (Robitussin Sf) 200 mg PO Q4H PRN PRN Reason: Cough Hydralazine HCl (Apresoline) 10 mg SLOW IVP Q4H PRN PRN Reason: SBP > 180 and HR < 70 Dextrose/Water (D5w) 1,000 mls @ 0 mls/hr IV .Q0M PRN PRN Reason: Hypoglycemia Insulin Human Lispro (Humalog) 0 units SC .MILD SLIDING SCALE PRN PRN Reason: Mild Correctional Scale Insulin Human Lispro (Humalog) 0 units SC .BEDTIME SLIDING SC PRN PRN Reason: Bedtime Correctional Scale Iron/Minerals/Multivitamins (Theragran M) 1 tab PO DAILY [facility] Last Admin: 05/11/18 08:49 Dose: 1 tab Loperamide HCl (Imodium) 2 mg PO PRN PRN PRN Reason: Diarrhea/Loose Stools Loratadine (Claritin) 10 mg PO DAILYPRN PRN PRN Reason: Sinus Symptoms Metoprolol Succinate (Toprol Xl) 50 mg PO DAILY [facility] Last Admin: 05/11/18 08:49 Dose: 50 mg Mineral Oil/White Petrolatum (Eucerin Cream) 0 gm TOP BIDPRN PRN PRN Reason: Dry Skin Ondansetron HCl (Zofran Odt) 4 mg PO Q6H PRN PRN Reason: Nausea/Vomiting Ondansetron HCl (Zofran) 4 mg IVP Q6H PRN PRN Reason: Nausea/Vomiting Senna/Docusate Sodium (Senokot S) 2 tab PO BID PRN PRN Reason: Constipation Sodium Chloride ([place]al [place] 0.65%) 0 ml EA NARE QIDPRN PRN PRN Reason: Nasal Congestion Thiamine HCl (Thiamine) 100 mg PO DAILY [facility] Last Admin: 05/11/18 08:49 Dose: 100 mg Throat Lozenges (Cepastat Lozenges) 1 renetta PO Q2H PRN PRN Reason: Sore Throat Zolpidem Tartrate (Ambien) 5 mg PO HSPRN PRN PRN Reason: Insomnia
--- NOTE | 2018-05-11 11:42 | DIS ---
DATE OF ADMISSION: 05/10/2018 DATE OF DISCHARGE: 05/11/2018 PRIMARY CARE PHYSICIAN: Vero Whitehead MD DISCHARGE DISPOSITION: Rehab/home with home health. PRIMARY DISCHARGE DIAGNOSES: 1. Dizziness, resolved. 2. Generalized weakness, improved. 3. Hypoglycemia associated with diabetes type 2 due to oral hypoglycemic agent. 4. Hyperkalemia due to lisinopril. 5. Hyponatremia, acute on chronic. 6. Leukocytosis, improving. SECONDARY DISCHARGE DIAGNOSES: 1. Noncompliance with medical treatment. 2. Macrocytic anemia. 3. Hypertension. 4. Gastroesophageal reflux disease. 5. Folate deficiency. 6. Diabetes type 2. 7. Alcoholic dementia. 8. Alcohol abuse. 9. Chronic stage C diastolic heart failure. 10. Chronic atrial fibrillation. 11. Coronary artery disease. PRIMARY PROCEDURE/OPERATION: None. RADIOLOGICAL INVESTIGATION: CT of brain negative. Chest x-ray normal. SIGNIFICANT LABORATORY DATA: WBC 12.2, hemoglobin 9.8, platelets 320, and MCV 103. Sodium 129, potassium 5.3, BUN 7, creatinine 0.85, calcium 9.3. LFT normal. Urinalysis unremarkable. DISCHARGE MEDICATIONS: 1. Aspirin 325 mg p.o. daily. 2. Flexeril 5 mg p.o. b.i.d. p.r.n. 3. Lasix 20 mg p.o. daily. 4. Metformin 500 mg p.o. b.i.d. 5. Zocor 20 mg p.o. at bedtime. 6. Vitamin B12 of 1000 mcg p.o. daily. 7. Digoxin 0.125 mg p.o. daily. 8. Pepcid 20 mg p.o. b.i.d. 9. Folic acid 1 mg daily. 10. Toprol-XL 50 mg p.o. daily. 11. Theragran one tablet p.o. daily. 12. Thiamine 100 mg p.o. daily. CONTRAINDICATION: The patient is not a good candidate for chronic anticoagulation because of her previous history of GI bleed and noncompliance. CODE STATUS: The patient is full code. INPATIENT FINANCIAL AID: None. ALLERGIES: NO KNOWN DRUG ALLERGIES. DISCHARGE PLAN: Posthospital, the patient will follow up with primary care physician. HOSPITAL COURSE: This is a 68-year-old female, who was recently admitted in our hospital. At that time, she was treated for acute on chronic diastolic heart failure as well as atrial fibrillation with RVR. During that admission, Cardiology was following while in hospital and we did all necessary investigation. During that admission, we also treated her abnormal electrolytes, and she was discharged home with home health. The patient was feeling weak and dizzy at home. She was having poor appetite, she was not eating well, and she was taking oral diabetic medication that made her hypoglycemia and that is why she was feeling miserable and decided to come to emergency room for evaluation. In the emergency room, she had hypoglycemia, she had slightly rapid ventricular rate, and she had abnormal electrolytes with hyponatremia and hyperkalemia. During this admission, we gave her D10 and her hypoglycemia improved. We also discontinued lisinopril for hyperkalemia and we also discontinued glimepiride from her diabetes medication. Rather, we only reduced metformin to 500 mg p.o. b.i.d. Necessary patient's education about diabetes, diet is given. This patient is continued to be high risk for recurrent admission. As the patient has overall mild weakness, that is why we decided to do PT/OT while in hospital and rehab screen. If the patient is approved for rehab, then we will consider discharging her to rehab. Otherwise, the patient has to go home with home health. The patient is seen and examined at bedside today. Please see my progress note from today for further detail. Job ID: [id number]
[2018-05-11] MEDS: Atorvastatin Calcium 10 MG TAB PO SCH (20:53)
[2018-05-11] MEDS: Famotidine 20 MG TAB PO SCH (20:53)
[2018-05-12] MEDS: Diltiazem HCl 125 MG, Admixture Fee 1 EACH in Sodium Chloride 0.9% 100 ML IVPB SCH (01:29)
[2018-05-12] MEDS: Multivitamin W/ Minerals 1 TAB PO SCH (10:28)
[2018-05-12] MEDS: Folic Acid 1 MG TAB PO SCH (10:28)
[2018-05-12] MEDS: Cyanocobalamin (Vitamin B-12) 1,000 MCG TAB PO SCH (10:28)
[2018-05-12] MEDS: Digoxin 0.125 MG TAB PO SCH (10:28)
[2018-05-12] MEDS: Aspirin 325 MG TAB PO SCH (10:29)
--- NOTE | 2018-05-12 10:50 | PDOC.PN ---
- Subjective Encounter Start Date: 05/12/18 Encounter Start Time: 07:10 Patient seen and examined. No new complaints. 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 for rapid ventricular rate - Objective Resuscitation Status - Order Detail: 05/10/18 13:04 Resuscitation Status Routine Resuscitation Status: FULL: Full Resuscitation MAR Reviewed: Yes Vital Signs & Weight: Vital Signs (12 hours) Temp Pulse Resp BP BP BP BP 05/12/18 10:28 96 05/12/18 07:33 98.8 F 96 16 109/58 L 05/12/18 05:00 88 100/57 L 05/12/18 04:30 97.4 F L 138 H 18 120/75 97/65 112/61 05/12/18 04:00 117 H 99/62 05/12/18 03:30 109 H 97/65 05/12/18 03:00 117 H 95/53 L 05/12/18 02:30 103 H 108/60 05/12/18 02:15 104 H 100/61 05/12/18 02:00 124 H 101/67 05/12/18 01:45 123 H 102/56 L 05/12/18 01:31 113 H 105/60 05/12/18 01:25 80 116/89 05/12/18 00:17 97.7 F 97 15 118/69 Pulse Ox 05/12/18 10:28 05/12/18 07:33 100 05/12/18 05:00 05/12/18 04:30 100 05/12/18 04:00 05/12/18 03:30 05/12/18 03:00 05/12/18 02:30 05/12/18 02:15 05/12/18 02:00 05/12/18 01:45 05/12/18 01:31 05/12/18 01:25 05/12/18 00:17 93 L Weight Weight 130 lb 9.6 oz I&O: 05/11/18 05/12/18 05/13/18 06:59 06:59 06:59 Intake Total 360 1440 Output Total 1400 2550 Balance -1040 -1110 Result Diagrams: 05/11/18 05:17 05/11/18 05:17 Additional Labs: Accuchecks 05/12/18 05/11/18 05/11/18 06:10 20:30 16:45 POC Glucose 93 186 H 119 H 05/11/18 10:55 POC Glucose 223 H EKG Reviewed by me: Yes (afib) Phys Exam - Physical Examination Constitutional: NAD HEENT: PERRLA, moist MMs, sclera anicteric Neck: no JVD, supple Respiratory: no wheezing, no rales, no rhonchi Cardiovascular: no significant murmur, irregular Gastrointestinal: soft, non-tender, no distention, positive bowel sounds Musculoskeletal: no edema, pulses present Neurological: non-focal, normal sensation Lymphatic: no nodes Psychiatric: normal affect Skin: no rash, normal turgor Dx/Plan (1) Chronic atrial fibrillation Code(s): I48.2 - CHRONIC ATRIAL FIBRILLATION Status: Chronic Comment: with paroxysmal RVR (2) Hyperkalemia Code(s): E87.5 - HYPERKALEMIA Status: Acute Comment: improving, dc lisinopril (3) Hypoglycemia associated with type 2 diabetes mellitus Code(s): E11.649 - TYPE 2 DIABETES MELLITUS WITH HYPOGLYCEMIA WITHOUT COMA Status: Acute Comment: dc glimiperide (4) Hyponatremia Code(s): E87.1 - HYPO-OSMOLALITY AND HYPONATREMIA Status: Acute (5) Leucocytosis Code(s): D72.829 - ELEVATED WHITE BLOOD CELL COUNT, UNSPECIFIED Status: Acute (6) Alcohol abuse Code(s): F10.10 - ALCOHOL ABUSE, UNCOMPLICATED Status: Chronic (7) CAD (coronary artery disease) Code(s): I25.10 - ATHSCL HEART DISEASE OF [place] CORONARY ARTERY W/O ANG PCTRS Status: Chronic Qualifiers: Coronary Disease-Associated Artery/Lesion type: [place] artery [place] vs. transplanted heart: [place] heart Associated angina: without angina Qualified Code(s): I25.10 - Atherosclerotic heart disease of [place] coronary artery without angina pectoris (8) Chronic stage c diastolic heart failure Code(s): I50.32 - CHRONIC DIASTOLIC (CONGESTIVE) HEART FAILURE Status: Chronic (9) Dementia, alcoholic Code(s): F10.27 - ALCOHOL DEPENDENCE WITH ALCOHOL-INDUCED PERSISTING DEMENTIA Status: Chronic Qualifiers: Dementia behavioral disturbance: with behavioral disturbance Qualified Code (s): F10.27 - Alcohol dependence with alcohol-induced persisting dementia (10) Folate deficiency Code(s): E53.8 - DEFICIENCY OF OTHER SPECIFIED B GROUP VITAMINS Status: Chronic (11) Gastroesophageal reflux disease Code(s): K21.9 - GASTRO-ESOPHAGEAL REFLUX DISEASE WITHOUT ESOPHAGITIS Status: Chronic Qualifiers: Esophagitis presence: without esophagitis Qualified Code(s): K21.9 - Gastro -esophageal reflux disease without esophagitis (12) HTN (hypertension) Code(s): I10 - ESSENTIAL (PRIMARY) HYPERTENSION Status: Chronic Qualifiers: Hypertension type: essential hypertension Qualified Code(s): I10 - Essential (primary) hypertension (13) Macrocytic anemia Code(s): D53.9 - NUTRITIONAL ANEMIA, UNSPECIFIED Status: Chronic (14) Non compliance with medical treatment Code(s): Z91.19 - PATIENT'S NONCOMPLIANCE W OTH MEDICAL TREATMENT AND REGIMEN Status: Chronic (15) Diabetes Mellitus Type 2 in Nonobese Code(s): E11.9 - TYPE 2 DIABETES MELLITUS WITHOUT COMPLICATIONS Status: Chronic - Plan cont current plan of care * cardiology consulted * continue current oral meds * last time she had sinus pause, and her rate is variable, will defer further plan to cardiology * medication reviewed as below * symptomatic treatment * repeat labs today. Review of Systems - Review of Systems ENT: negative: Ear Pain, Ear Discharge, Nose Pain, Nose Discharge, Nose Congestion, Mouth Pain, Mouth Swelling, Throat Pain, Throat Swelling, Other Respiratory: negative: Cough, Dry, Shortness of Breath, Hemoptysis, SOB with Excertion, Pleuritic Pain, Sputum, Wheezing Cardiovascular: negative: chest pain, palpitations, orthopnea, paroxysmal nocturnal dyspnea, edema, light headedness, other Gastrointestinal: negative: Nausea, Vomiting, Abdominal Pain, Diarrhea, Constipation, Melena, Hematochezia, Other Genitourinary: negative: Dysuria, Frequency, Incontinence, Hematuria, Retention , Other Musculoskeletal: negative: Neck Pain, Shoulder Pain, Arm Pain, Back Pain, Hand Pain, Leg Pain, Foot Pain, Other - Medications/Allergies Allergies/Adverse Reactions: Allergies Allergy/AdvReac Type Severity Reaction Status Date / Time No Known Allergies Allergy Verified 05/10/18 20:02 Medications: Current Medications Acetaminophen (Tylenol) 650 mg PO Q4H PRN PRN Reason: Headache/Fever/Mild Pain (1-3) Hydrocodone Bitart/Acetaminophen ([place] 5/325) 1 tab PO Q4H PRN PRN Reason: Moderate Pain (4-6) Artificial Tears (Tears Naturale) 2 drop EA EYE PRN PRN PRN Reason: Dry Eyes Aspirin (Aspirin) 325 mg PO DAILY [facility] Last Admin: 05/12/18 10:29 Dose: 325 mg Atorvastatin Calcium (Lipitor) 10 mg PO HS [facility] Last Admin: 05/11/18 20:53 Dose: 10 mg Bisacodyl (Dulcolax) 10 mg [place] DAILYPRN PRN PRN Reason: Constipation Calcium Carbonate (Tums) 1,000 mg PO Q4H PRN PRN Reason: Heartburn or Indigestion Cyanocobalamin (Vitamin B-12) 1,000 mcg PO DAILY [facility] Last Admin: 05/12/18 10:28 Dose: 1,000 mcg Cyclobenzaprine HCl (Flexeril) 10 mg PO TIDPRN PRN PRN Reason: Muscle Spasm Dextrose/Water (Dextrose 50%) 25 gm SLOW IVP PRN PRN PRN Reason: Hypoglycemia Last Admin: 05/11/18 06:35 Dose: 25 gm Digoxin (Lanoxin) 0.125 mg PO DAILY [facility] Last Admin: 05/12/18 10:28 Dose: 0.125 mg Famotidine (Pepcid) 20 mg PO 2100 [facility] Last Admin: 05/11/18 20:53 Dose: 20 mg Folic Acid (Folvite) 1 mg PO DAILY [facility] Last Admin: 05/12/18 10:28 Dose: 1 mg Glucagon (Glucagon) 1 mg IM PRN PRN PRN Reason: Hypoglycemia Guaifenesin (Robitussin Sf) 200 mg PO Q4H PRN PRN Reason: Cough Hydralazine HCl (Apresoline) 10 mg SLOW IVP Q4H PRN PRN Reason: SBP > 180 and HR < 70 Dextrose/Water (D5w) 1,000 mls @ 0 mls/hr IV .Q0M PRN PRN Reason: Hypoglycemia Diltiazem HCl 125 mg/Miscellaneous Medication 1 each/ Sodium Chloride 125 mls @ 5 mls/hr IVPB INF [facility]; Protocol Last Admin: 05/12/18 01:29 Dose: 125 mls Insulin Human Lispro (Humalog) 0 units SC .MILD SLIDING SCALE PRN PRN Reason: Mild Correctional Scale Insulin Human Lispro (Humalog) 0 units SC .BEDTIME SLIDING SC PRN PRN Reason: Bedtime Correctional Scale Iron/Minerals/Multivitamins (Theragran M) 1 tab PO DAILY [facility] Last Admin: 05/12/18 10:28 Dose: 1 tab Loperamide HCl (Imodium) 2 mg PO PRN PRN PRN Reason: Diarrhea/Loose Stools Loratadine (Claritin) 10 mg PO DAILYPRN PRN PRN Reason: Sinus Symptoms Metoprolol Succinate (Toprol Xl) 50 mg PO DAILY [facility] Last Admin: 05/12/18 10:29 Dose: 50 mg Mineral Oil/White Petrolatum (Eucerin Cream) 0 gm TOP BIDPRN PRN PRN Reason: Dry Skin Ondansetron HCl (Zofran Odt) 4 mg PO Q6H PRN PRN Reason: Nausea/Vomiting Ondansetron HCl (Zofran) 4 mg IVP Q6H PRN PRN Reason: Nausea/Vomiting Senna/Docusate Sodium (Senokot S) 2 tab PO BID PRN PRN Reason: Constipation Sodium Chloride ([place] Nasal [place] 0.65%) 0 ml EA NARE QIDPRN PRN PRN Reason: Nasal Congestion Sodium Chloride (Flush - Normal Saline) 10 ml IVF Q12HR [facility] Last Admin: 05/12/18 10:29 Dose: Not Given Sodium Chloride (Flush - Normal Saline) 10 ml IVF PRN PRN PRN Reason: Saline Flush Thiamine HCl (Thiamine) 100 mg PO DAILY [facility] Last Admin: 05/12/18 10:29 Dose: 100 mg Throat Lozenges (Cepastat Lozenges) 1 renetta PO Q2H PRN PRN Reason: Sore Throat Zolpidem Tartrate (Ambien) 5 mg PO HSPRN PRN PRN Reason: Insomnia
[2018-05-12 12:29] LABS: #Basophils 0.1 thou/uL (0.0-0.2); #Eosinphils 0.2 thou/uL (0.0-0.7); #Lymphocytes 2.3 thou/uL (1.20-3.40); #Monocytes 1.3 thou/uL (0.11-0.59); #Neutrophils 5.3 thou/uL (1.40-6.50); %Basophils 0.7 % (0.0-1.0); %Lymphocytes 25.1 % (21.0-51.0); %Monocytes 14.4 % (0.0-10.0); %Neutrophils 57.9 % (42.0-75.0); Hemoglobin 10.5 g/dL (12.0-16.0); Mean Corpuscular HGB CONC 30.6 g/dL (32.0-36.0); Mean Corpuscular Hemoglobin 31.6 pg (27.0-31.0); Platelet Count 354 thou/uL (130-400); RBC Distribution Width 15.6 % (11.5-14.5); Red Blood Cell (RBC) Count 3.32 mill/uL (4.20-5.40); White Blood Cell (WBC) Count 9.2 thou/uL (4.8-10.8)
[2018-05-12 12:52] LABS: ALT (SGPT) 16 U/L (8-55); AST (SGOT) 27 U/L (5-34); Albumin 3.3 g/dL (3.4-4.8); Alkaline Phosphatase 124 U/L (40-150); Anion Gap 14 mmol/L (10-20); BUN (Urea Nitrogen) 6 mg/dL (9.8-20.1); Bilirubin, Total 0.3 mg/dL (0.2-1.2); Calc. Creatinine Clearance 59 mL/min (70-130); Calcium 9.7 mg/dL (7.8-10.44); Carbon Dioxide 22 mmol/L (23-31); Chloride 97 mmol/L (98-107); Estimated GFR-MDRD 79; Globulin 3.9 g/dL (2.4-3.5); Glucose 118 mg/dL (80-115); Potassium 4.7 mmol/L (3.5-5.1); Protein, Total 7.2 g/dL (6.0-8.3); Sodium 128 mmol/L (136-145)
[2018-05-12] MEDS: Atorvastatin Calcium 10 MG TAB PO SCH (20:27)
[2018-05-12] MEDS: Famotidine 20 MG TAB PO SCH (20:28)
[2018-05-13] MEDS: Diltiazem HCl 125 MG, Admixture Fee 1 EACH in Sodium Chloride 0.9% 100 ML IVPB SCH (01:21)
--- NOTE | 2018-05-13 01:58 | CON ---
DATE OF CONSULTATION: HISTORY OF PRESENT ILLNESS: Eri Dee is a 68-year-old black female, who I have followed intermittently since March 2012. At that time, she was having episodes of tachycardia lasting up to 1 hour. After taking [id number] cold medicine, she called paramedics after she developed fluttering and chest pressure. She was found to have supraventricular tachycardia with a rate of 235 per minute. She was given 6 and then 12 mg of adenosine and she converted to atrial fibrillation with a rate of 148 per minute. She was placed on Cardizem drip and ultimately converted to sinus rhythm. She also received Lopressor 50 p.o. and had a bradycardic episode with heart rates in the 30s and 40s with junctional bradycardia. She underwent Lexiscan Cardiolite testing which revealed a small focus of decreased activity at the apex, most consistent with a small infarct or scar. Should she need to be anticoagulated at the time of the episode of atrial fibrillation, it was felt that consideration should be given to evaluation of that in the future; however , she never came back to the office as she was scheduled to do. Also, during that admission in March 2012, she underwent ablation of typical atrial flutter by Dr. Fidel Quintanilla and was placed on the anticoagulation. In May 2012, she presented with increased palpitations and was in atrial fibrillation with fast ventricular response. She also had several bloody stools , and her INR was 3.3. Her lowest hemoglobin during that admission was 4.5. She underwent EGD and colonoscopy and a bleeding diverticulum that was injected. Coumadin was withheld. She was placed on rate control alone for her atrial fibrillation. In July 2012, her heart was again beating very rapidly. She came to the emergency room, was found to be in atrial fibrillation. She received intravenous digoxin and was placed on Multaq. She underwent transesophageal echo followed by electrical cardioversion. Her INR was 2, and she was discharged home. She was seen several weeks later in the office and continued being in sinus rhythm; however, she never did get Multaq or Coumadin filled. In October 2012, she was admitted with elevated INR, hemoglobin of 5.2, and at that time, I believe her Coumadin was permanently discontinued. She was placed on flecainide. She has been very noncompliant with followups. She then was admitted on April 29 with episode of syncope; however, she was found to be hypoglycemic with a glucose of 34. She was in atrial fibrillation with fast ventricular response. At that time, she was taking flecainide 50 b.i.d. Since she has had recurrence of her atrial fibrillation, flecainide was discontinued. It was felt that she was not an anticoagulation candidate with very severe GI bleeding in the past and it was felt that she should be treated with rate control alone. Near the time of discharge , she had pauses of 2-3 seconds, which were asymptomatic. Diltiazem was discontinued , and she was discharged on digoxin 0.125 daily and metoprolol 50 daily. She now is admitted with complaints of dizziness and weakness. In the emergency room, she had atrial fibrillation with slight RVR. Since being admitted, she has had more significant tachycardia. With her atrial fibrillation, she has been placed on a Cardizem drip. It is of note that echocardiogram performed on May 01 revealed ejection fraction of 40% to 45% with apical akinesis, moderate left atrial enlargement, mild mitral regurgitation, [id number] tricuspid regurgitation , mild pulmonic regurgitation. She denies any chest discomfort or shortness of breath. PAST MEDICAL HISTORY: Hypertension; diabetes; hypercholesterolemia; depression; paroxysmal atrial fibrillation now, probably chronic; chronic back pain; and dementia, probably secondary to alcohol. OPERATIONS: Left breast biopsy, hysterectomy, flutter ablation, right forearm surgery. MEDICATIONS AT HOME: Include: 1. Aspirin 325 daily. 2. Digoxin 0.125 q.a.m. 3. Pepcid 20 b.i.d. 4. Folic acid daily. 5. Furosemide 20 mg q.a.m. 6. Metformin 1000 mg b.i.d. 7. Metoprolol 50 daily. 8. Simvastatin 20 at bedtime. 9. Thiamine 100 daily. ALLERGIES: NONE. SOCIAL HISTORY: She does not smoke. She drinks alcohol. FAMILY HISTORY: Sister had coronary artery stent placed. REVIEW OF SYSTEMS: A 12-point review of systems is otherwise unremarkable. PHYSICAL EXAMINATION: VITAL SIGNS: 110/63, pulse of 105 and irregularly irregular. HEENT: PERRL. NECK: Supple. CHEST: Clear. CARDIAC: S1 and S2 were normal without any S3, S4, or murmurs. ABDOMEN: Obese. Normal bowel sounds. No tenderness. EXTREMITIES: Revealed no clubbing, cyanosis, or edema. NEUROLOGIC: Grossly intact. SKIN: Warm and dry. LABORATORY DATA: EKG reveals atrial fibrillation with fast ventricular response , widespread T-wave changes which are similar to previous EKGs. Echocardiogram findings from before as noted above. Hemoglobin 10.5, hematocrit 34.3, white count 9200, platelets 354,000. INR 1.1. Sodium 128, potassium 4.7, chloride 97, carbon dioxide 22, BUN 6, creatinine 0.87. IMPRESSION: 1. 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 2. Episodes of junctional bradycardia in the past, on carvedilol, discontinued in August 2012. 3. History of atrial flutter ablation in March 2012. 4. History of gastrointestinal bleeding with hemoglobin dropping to as low as 4.5 when she presented with an INR of 3.3. Coumadin has been discontinued. She is not a candidate for anticoagulation. 5. Hypertension. 6. Diabetes. 7. Hyperlipidemia. 8. Small apical defect on Cardiolite seen in the past; however, she never returned for further evaluation of that. 9. Depression. 10. Dementia. 11. Chronic back pain. PLAN: Situation discussed with Mrs. Dee. She is not an anticoagulation candidate, and therefore, is not a candidate for electrocardioversion. I feel her best option would be increase medicines and rate control of her rapid ventricular response; however, she will need a pacemaker. With her ejection fraction of 40 % to 45%, I feel that a resynchronization pacemaker would be her best option, and Electrophysiology will be consulted. Job ID: [id number] MTDD
[2018-05-13] MEDS: Cyanocobalamin (Vitamin B-12) 1,000 MCG TAB PO SCH (09:16)
[2018-05-13] MEDS: Digoxin 0.125 MG TAB PO SCH (09:16)
[2018-05-13] MEDS: Multivitamin W/ Minerals 1 TAB PO SCH (09:16)
[2018-05-13] MEDS: Aspirin 325 MG TAB PO SCH (09:16)
[2018-05-13] MEDS: Folic Acid 1 MG TAB PO SCH (09:16)
--- NOTE | 2018-05-13 10:14 | PDOC.PN ---
- Subjective Encounter Start Date: 05/13/18 Encounter Start Time: 07:20 Patient seen and examined. No new complaints. No overnight events - Objective Resuscitation Status - Order Detail: 05/10/18 13:04 Resuscitation Status Routine Resuscitation Status: FULL: Full Resuscitation MAR Reviewed: Yes Vital Signs & Weight: Vital Signs (12 hours) Temp Pulse Resp BP BP Pulse Ox 05/13/18 09:16 94 05/13/18 07:26 98.6 F 94 16 98/58 L 99 05/13/18 03:10 98.7 F 135 H 20 118/65 98 05/13/18 00:10 115 H 102/63 05/12/18 23:10 129 H 122/79 Weight Weight 130 lb 12.8 oz I&O: 05/12/18 05/13/18 05/14/18 06:59 06:59 06:59 Intake Total 1440 1120 Output Total 2550 1000 Balance -1110 120 Result Diagrams: 05/12/18 12:19 05/12/18 12:19 Additional Labs: Accuchecks 05/13/18 05/12/18 05/12/18 06:15 20:43 16:58 POC Glucose 93 144 H 165 H 05/12/18 11:11 POC Glucose 106 EKG Reviewed by me: Yes (afib) Phys Exam - Physical Examination Constitutional: NAD HEENT: PERRLA, moist MMs, sclera anicteric Neck: no JVD, supple Respiratory: no wheezing, no rales, no rhonchi Cardiovascular: no significant murmur, irregular Gastrointestinal: soft, non-tender, no distention, positive bowel sounds Musculoskeletal: no edema, pulses present Neurological: non-focal, normal sensation Psychiatric: normal affect, A&O x 3 Skin: no rash, normal turgor Dx/Plan (1) Chronic atrial fibrillation Code(s): I48.2 - CHRONIC ATRIAL FIBRILLATION Status: Chronic Comment: with paroxysmal RVR (2) Hyperkalemia Code(s): E87.5 - HYPERKALEMIA Status: Acute Comment: improving, dc lisinopril (3) Hypoglycemia associated with type 2 diabetes mellitus Code(s): E11.649 - TYPE 2 DIABETES MELLITUS WITH HYPOGLYCEMIA WITHOUT COMA Status: Acute Comment: dc glimiperide (4) Hyponatremia Code(s): E87.1 - HYPO-OSMOLALITY AND HYPONATREMIA Status: Acute (5) Leucocytosis Code(s): D72.829 - ELEVATED WHITE BLOOD CELL COUNT, UNSPECIFIED Status: Acute (6) Alcohol abuse Code(s): F10.10 - ALCOHOL ABUSE, UNCOMPLICATED Status: Chronic (7) CAD (coronary artery disease) Code(s): I25.10 - ATHSCL HEART DISEASE OF [place] CORONARY ARTERY W/O ANG PCTRS Status: Chronic Qualifiers: Coronary Disease-Associated Artery/Lesion type: [place] artery [place] vs. transplanted heart: [place] heart Associated angina: without angina Qualified Code(s): I25.10 - Atherosclerotic heart disease of [place] coronary artery without angina pectoris (8) Chronic stage c diastolic heart failure Code(s): I50.32 - CHRONIC DIASTOLIC (CONGESTIVE) HEART FAILURE Status: Chronic (9) Dementia, alcoholic Code(s): F10.27 - ALCOHOL DEPENDENCE WITH ALCOHOL-INDUCED PERSISTING DEMENTIA Status: Chronic Qualifiers: Dementia behavioral disturbance: with behavioral disturbance Qualified Code (s): F10.27 - Alcohol dependence with alcohol-induced persisting dementia (10) Folate deficiency Code(s): E53.8 - DEFICIENCY OF OTHER SPECIFIED B GROUP VITAMINS Status: Chronic (11) Gastroesophageal reflux disease Code(s): K21.9 - GASTRO-ESOPHAGEAL REFLUX DISEASE WITHOUT ESOPHAGITIS Status: Chronic Qualifiers: Esophagitis presence: without esophagitis Qualified Code(s): K21.9 - Gastro -esophageal reflux disease without esophagitis (12) HTN (hypertension) Code(s): I10 - ESSENTIAL (PRIMARY) HYPERTENSION Status: Chronic Qualifiers: Hypertension type: essential hypertension Qualified Code(s): I10 - Essential (primary) hypertension (13) Macrocytic anemia Code(s): D53.9 - NUTRITIONAL ANEMIA, UNSPECIFIED Status: Chronic (14) Non compliance with medical treatment Code(s): Z91.19 - PATIENT'S NONCOMPLIANCE W OTH MEDICAL TREATMENT AND REGIMEN Status: Chronic (15) Diabetes Mellitus Type 2 in Nonobese Code(s): E11.9 - TYPE 2 DIABETES MELLITUS WITHOUT COMPLICATIONS Status: Chronic - Plan cont current plan of care * spoke with EP about plan * if pacemaker procedure planned, then will change to inpt * if no plan for pacemaker, then will consider discharge later on today with medical treatment * medication reviewed as below * symptomatic treatment. * currently on cardizem drip and rate is variable Review of Systems - Review of Systems ENT: negative: Ear Pain, Ear Discharge, Nose Pain, Nose Discharge, Nose Congestion, Mouth Pain, Mouth Swelling, Throat Pain, Throat Swelling, Other Respiratory: negative: Cough, Dry, Shortness of Breath, Hemoptysis, SOB with Excertion, Pleuritic Pain, Sputum, Wheezing Cardiovascular: negative: chest pain, palpitations, orthopnea, paroxysmal nocturnal dyspnea, edema, light headedness, other Gastrointestinal: negative: Nausea, Vomiting, Abdominal Pain, Diarrhea, Constipation, Melena, Hematochezia, Other Genitourinary: negative: Dysuria, Frequency, Incontinence, Hematuria, Retention , Other Musculoskeletal: negative: Neck Pain, Shoulder Pain, Arm Pain, Back Pain, Hand Pain, Leg Pain, Foot Pain, Other Skin: negative: Rash, Lesions, Ellis, Bruising, Other - Medications/Allergies Allergies/Adverse Reactions: Allergies Allergy/AdvReac Type Severity Reaction Status Date / Time No Known Allergies Allergy Verified 05/10/18 20:02 Medications: Current Medications Acetaminophen (Tylenol) 650 mg PO Q4H PRN PRN Reason: Headache/Fever/Mild Pain (1-3) Hydrocodone Bitart/Acetaminophen ([place] 5/325) 1 tab PO Q4H PRN PRN Reason: Moderate Pain (4-6) Artificial Tears (Tears Naturale) 2 drop EA EYE PRN PRN PRN Reason: Dry Eyes Aspirin (Aspirin) 325 mg PO DAILY [facility] Last Admin: 05/13/18 09:16 Dose: 325 mg Atorvastatin Calcium (Lipitor) 10 mg PO HS [facility] Last Admin: 05/12/18 20:27 Dose: 10 mg Bisacodyl (Dulcolax) 10 mg [place] DAILYPRN PRN PRN Reason: Constipation Calcium Carbonate (Tums) 1,000 mg PO Q4H PRN PRN Reason: Heartburn or Indigestion Cyanocobalamin (Vitamin B-12) 1,000 mcg PO DAILY [facility] Last Admin: 05/13/18 09:16 Dose: 1,000 mcg Cyclobenzaprine HCl (Flexeril) 10 mg PO TIDPRN PRN PRN Reason: Muscle Spasm Dextrose/Water (Dextrose 50%) 25 gm SLOW IVP PRN PRN PRN Reason: Hypoglycemia Last Admin: 05/11/18 06:35 Dose: 25 gm Digoxin (Lanoxin) 0.125 mg PO DAILY [facility] Last Admin: 05/13/18 09:16 Dose: 0.125 mg Famotidine (Pepcid) 20 mg PO 2100 [facility] Last Admin: 05/12/18 20:28 Dose: 20 mg Folic Acid (Folvite) 1 mg PO DAILY [facility] Last Admin: 05/13/18 09:16 Dose: 1 mg Glucagon (Glucagon) 1 mg IM PRN PRN PRN Reason: Hypoglycemia Guaifenesin (Robitussin Sf) 200 mg PO Q4H PRN PRN Reason: Cough Hydralazine HCl (Apresoline) 10 mg SLOW IVP Q4H PRN PRN Reason: SBP > 180 and HR < 70 Dextrose/Water (D5w) 1,000 mls @ 0 mls/hr IV .Q0M PRN PRN Reason: Hypoglycemia Diltiazem HCl 125 mg/Miscellaneous Medication 1 each/ Sodium Chloride 125 mls @ 5 mls/hr IVPB INF [facility]; Protocol Last Admin: 05/13/18 01:21 Dose: 125 mls Insulin Human Lispro (Humalog) 0 units SC .MILD SLIDING SCALE PRN PRN Reason: Mild Correctional Scale Insulin Human Lispro (Humalog) 0 units SC .BEDTIME SLIDING SC PRN PRN Reason: Bedtime Correctional Scale Iron/Minerals/Multivitamins (Theragran M) 1 tab PO DAILY [facility] Last Admin: 05/13/18 09:16 Dose: 1 tab Loperamide HCl (Imodium) 2 mg PO PRN PRN PRN Reason: Diarrhea/Loose Stools Loratadine (Claritin) 10 mg PO DAILYPRN PRN PRN Reason: Sinus Symptoms Metoprolol Succinate (Toprol Xl) 50 mg PO DAILY [facility] Last Admin: 05/13/18 09:16 Dose: 50 mg Mineral Oil/White Petrolatum (Eucerin Cream) 0 gm TOP BIDPRN PRN PRN Reason: Dry Skin Ondansetron HCl (Zofran Odt) 4 mg PO Q6H PRN PRN Reason: Nausea/Vomiting Ondansetron HCl (Zofran) 4 mg IVP Q6H PRN PRN Reason: Nausea/Vomiting Senna/Docusate Sodium (Senokot S) 2 tab PO BID PRN PRN Reason: Constipation Sodium Chloride ([place] Nasal [place] 0.65%) 0 ml EA NARE QIDPRN PRN PRN Reason: Nasal Congestion Sodium Chloride (Flush - Normal Saline) 10 ml IVF Q12HR [facility] Last Admin: 05/13/18 09:17 Dose: Not Given Sodium Chloride (Flush - Normal Saline) 10 ml IVF PRN PRN PRN Reason: Saline Flush Thiamine HCl (Thiamine) 100 mg PO DAILY [facility] Last Admin: 05/13/18 09:16 Dose: 100 mg Throat Lozenges (Cepastat Lozenges) 1 renetta PO Q2H PRN PRN Reason: Sore Throat Zolpidem Tartrate (Ambien) 5 mg PO HSPRN PRN PRN Reason: Insomnia
--- NOTE | 2018-05-13 15:40 | CON ---
DATE OF CONSULTATION: 05/13/2018 REFERRING PHYSICIAN: Dr. Manuel. REASON FOR CONSULTATION: I am seeing Mrs. Dee at our [facility] telemetry floor as an Electrophysiology consult. PROBLEMS: 1. Chronic atrial fibrillation. a. Initial presentation in 2011. b. Status post typical isthmus dependent atrial flutter ablation by Dr. Quintanilla in March 2012. c. Recurrent atrial fibrillation with transient flecainide use, eventually stopped. d. Tachy-noreen episodes. e. Prior history of noncompliance with medications including Multaq and flecainide. 2. History of Lexiscan without ischemia and apical scar in 2011. a. A 2D echo from April 30, 2018 reveals LVEF of 40% to 45%, mild mitral regurgitation, [id number] tricuspid regurgitation, mild pulmonic regurgitation. b. Prior OLINDA from 2013 revealed normal LVEF, left atrial enlargement, mild MR, TR, and PI. No clots. 3. History of GI bleed, not on anticoagulation. 4. History of hypoglycemia. 5. History of EtOH abuse. 6. Noncompliance. 7. History of diabetes, on metformin. ALLERGIES: NONE NOTED. MEDICATIONS: At home included; 1. Metformin. 2. Cyclobenzaprine. 3. Zocor. 4. Aspirin. 5. Tylenol. 6. Lisinopril/HCTZ. 7. Furosemide. 8. Cyanocobalamin. 9. Digoxin. 10. Famotidine. 11. Folic acid. 12. Metoprolol. 13. Multivitamin. 14. Thiamine. SUBJECTIVE: Mrs. Dee was admitted on the to our facility with feeling lack of energy, dizziness, and weakness. She did not pass out. Denies any chills, fever, or flu-like illness or UTI like symptoms. She was noted to have somewhat rapid rates on admission, but improved with diltiazem administration. Currently, she is asymptomatic, lying in bed. Denies new stroke-like symptoms. PAST HISTORY: 1. Coronary artery disease. 2. Paroxysmal atrial fibrillation. 3. Type 2 diabetes. 4. GERD. 5. Hypertension. 6. Prior stroke. 7. Alcoholic dementia. 8. Macrocytic anemia. 9. History of GI bleed in the past. 10. EtOH abuse. SURGICAL HISTORY: 1. Right arm surgery. 2. Hysterectomy. SOCIAL HISTORY: The patient has a history of EtOH abuse in the past, but currently she states she is abstinent. Lives with her niece. Denies drug use. OBJECTIVE DATA: VITAL SIGNS: Blood pressure is 98/58, heart rate 94, respirations 16, temperature 98.6 degrees Fahrenheit. GENERAL: Alert and oriented woman, in no apparent distress. NECK: Supple. Jugular veins not distended. CHEST: Coarse with crackles. CARDIAC: Heart sounds are irregularly irregular. S1, S2 variable. No murmur or gallop. ABDOMEN: Benign. Bowel sounds positive. EXTREMITIES: Lower extremities without edema, clubbing, or cyanosis. Pulses are adequate. NEUROLOGIC: The patient is nonfocal. MUSCULOSKELETAL: No joint swelling or deformity. SKIN: Without rash. DATABASE: EKGs reviewed revealing atrial fibrillation, rate of 120 beats per minute. Subsequent EKGs revealed improving ventricular rate control. QRS is narrow at 68 msec. T-wave inversion seen inferolaterally on the EKG. Lab data: White count is 9.2, hemoglobin 10.5, platelet count is 354. Sodium 128, potassium 4.7, BUN 6, creatinine 0.87. Troponin I is 0.019. BNP is 255. ASSESSMENT AND PLAN: Mrs. Dee is a 68-year-old woman with history of EtOH, some degree of dementia, cardiomyopathy, chronic atrial fibrillation, history of GI bleed, not on anticoagulation, diabetes. She presented with lack of energy. Her heart rates were rapid. I suspect some degree of noncompliance with her medication regimen. She did have issues with bradycardia in the past with pauses. 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 This lady may be a poor candidate for long-term anticoagulation and also left atrial ablation procedures. Hence, the tachy-noreen syndrome, pacing could be not unreasonable. If long-term AV esvin ablation is felt to be the ultimate solution for her by the pacer is a potential option. We will discuss with Dr. Manuel. In the meantime, I agree with the current management with diltiazem and digoxin. Anticoagulation is on hold indefinitely and history of excessive GI bleed, poor candidate for resuming it. Watchman procedure could be considered if she could be able to tolerate anticoagulants transiently. We will discuss with primary team. Job ID: [id number]
[2018-05-13] MEDS: Famotidine 20 MG TAB PO SCH (21:12)
[2018-05-13] MEDS: Atorvastatin Calcium 10 MG TAB PO SCH (21:12)
[2018-05-14] MEDS: Digoxin 0.125 MG TAB PO SCH (05:05)
[2018-05-14] MEDS ORDERED: Iopamidol 370 76% 50 ML VIAL FS ONE (09:30)
--- NOTE | 2018-05-14 09:32 | PDOC.PN ---
- Subjective Encounter Start Date: 05/14/18 Encounter Start Time: 07:10 Patient seen and examined. No new complaints. No overnight events pt's heart rate is variable, - Objective Resuscitation Status - Order Detail: 05/10/18 13:04 Resuscitation Status Routine Resuscitation Status: FULL: Full Resuscitation MAR Reviewed: Yes Vital Signs & Weight: Vital Signs (12 hours) Temp Pulse Resp BP BP Pulse Ox 05/14/18 07:27 98.1 F 90 14 106/59 L 99 05/14/18 05:05 118 H 05/14/18 05:03 97.6 F 118 H 20 103/69 96 05/13/18 23:00 97.5 F L 119 H 16 115/78 98 Weight Weight 124 lb 12.8 oz I&O: 05/13/18 05/14/18 05/15/18 06:59 06:59 06:59 Intake Total 1120 Output Total 1000 Balance 120 Result Diagrams: 05/12/18 12:19 05/12/18 12:19 Additional Labs: Accuchecks 05/14/18 05/13/18 05/13/18 04:56 22:53 17:51 POC Glucose 141 H 122 H 139 H 05/13/18 11:31 POC Glucose 117 H EKG Reviewed by me: Yes (afib) Phys Exam - Physical Examination Constitutional: NAD HEENT: PERRLA, moist MMs, sclera anicteric Neck: no JVD, supple Respiratory: no wheezing, no rales, no rhonchi Cardiovascular: no significant murmur, irregular Gastrointestinal: soft, non-tender, no distention, positive bowel sounds Musculoskeletal: no edema, pulses present Neurological: non-focal, normal sensation Lymphatic: no nodes Psychiatric: normal affect, A&O x 3 Skin: no rash, normal turgor Dx/Plan (1) Chronic atrial fibrillation Code(s): I48.2 - CHRONIC ATRIAL FIBRILLATION Status: Chronic Comment: with paroxysmal RVR (2) Hyperkalemia Code(s): E87.5 - HYPERKALEMIA Status: Resolved Comment: improving, dc lisinopril (3) Hypoglycemia associated with type 2 diabetes mellitus Code(s): E11.649 - TYPE 2 DIABETES MELLITUS WITH HYPOGLYCEMIA WITHOUT COMA Status: Acute Comment: dc glimiperide (4) Hyponatremia Code(s): E87.1 - HYPO-OSMOLALITY AND HYPONATREMIA Status: Acute (5) Leucocytosis Code(s): D72.829 - ELEVATED WHITE BLOOD CELL COUNT, UNSPECIFIED Status: Acute (6) Alcohol abuse Code(s): F10.10 - ALCOHOL ABUSE, UNCOMPLICATED Status: Chronic (7) CAD (coronary artery disease) Code(s): I25.10 - ATHSCL HEART DISEASE OF [place] CORONARY ARTERY W/O ANG PCTRS Status: Chronic Qualifiers: Coronary Disease-Associated Artery/Lesion type: [place] artery [place] vs. transplanted heart: [place] heart Associated angina: without angina Qualified Code(s): I25.10 - Atherosclerotic heart disease of [place] coronary artery without angina pectoris (8) Chronic stage c diastolic heart failure Code(s): I50.32 - CHRONIC DIASTOLIC (CONGESTIVE) HEART FAILURE Status: Chronic (9) Dementia, alcoholic Code(s): F10.27 - ALCOHOL DEPENDENCE WITH ALCOHOL-INDUCED PERSISTING DEMENTIA Status: Chronic Qualifiers: Dementia behavioral disturbance: with behavioral disturbance Qualified Code (s): F10.27 - Alcohol dependence with alcohol-induced persisting dementia (10) Folate deficiency Code(s): E53.8 - DEFICIENCY OF OTHER SPECIFIED B GROUP VITAMINS Status: Chronic (11) Gastroesophageal reflux disease Code(s): K21.9 - GASTRO-ESOPHAGEAL REFLUX DISEASE WITHOUT ESOPHAGITIS Status: Chronic Qualifiers: Esophagitis presence: without esophagitis Qualified Code(s): K21.9 - Gastro -esophageal reflux disease without esophagitis (12) HTN (hypertension) Code(s): I10 - ESSENTIAL (PRIMARY) HYPERTENSION Status: Chronic Qualifiers: Hypertension type: essential hypertension Qualified Code(s): I10 - Essential (primary) hypertension (13) Macrocytic anemia Code(s): D53.9 - NUTRITIONAL ANEMIA, UNSPECIFIED Status: Chronic (14) Non compliance with medical treatment Code(s): Z91.19 - PATIENT'S NONCOMPLIANCE W OTH MEDICAL TREATMENT AND REGIMEN Status: Chronic (15) Diabetes Mellitus Type 2 in Nonobese Code(s): E11.9 - TYPE 2 DIABETES MELLITUS WITHOUT COMPLICATIONS Status: Chronic - Plan cont current plan of care * cardiology may consider pacemaker given her tachy-noreen clinical picture and then she will be better rate controlled with rate controlling meds * she is not candidate for chronic anticoagulation and even short term compliance is not guaranteed with her. * medication reviewed as below * symptomatic treatment Review of Systems - Review of Systems ENT: negative: Ear Pain, Ear Discharge, Nose Pain, Nose Discharge, Nose Congestion, Mouth Pain, Mouth Swelling, Throat Pain, Throat Swelling, Other Respiratory: negative: Cough, Dry, Shortness of Breath, Hemoptysis, SOB with Excertion, Pleuritic Pain, Sputum, Wheezing Cardiovascular: negative: chest pain, palpitations, orthopnea, paroxysmal nocturnal dyspnea, edema, light headedness, other Gastrointestinal: negative: Nausea, Vomiting, Abdominal Pain, Diarrhea, Constipation, Melena, Hematochezia, Other Genitourinary: negative: Dysuria, Frequency, Incontinence, Hematuria, Retention , Other Musculoskeletal: negative: Neck Pain, Shoulder Pain, Arm Pain, Back Pain, Hand Pain, Leg Pain, Foot Pain, Other Skin: negative: Rash, Lesions, Ellis, Bruising, Other - Medications/Allergies Allergies/Adverse Reactions: Allergies Allergy/AdvReac Type Severity Reaction Status Date / Time No Known Allergies Allergy Verified 05/10/18 20:02 Medications: Current Medications Acetaminophen (Tylenol) 650 mg PO Q4H PRN PRN Reason: Headache/Fever/Mild Pain (1-3) Hydrocodone Bitart/Acetaminophen ([place] 5/325) 1 tab PO Q4H PRN PRN Reason: Moderate Pain (4-6) Artificial Tears (Tears Naturale) 2 drop EA EYE PRN PRN PRN Reason: Dry Eyes Aspirin (Aspirin) 325 mg PO DAILY [facility] Last Admin: 05/13/18 09:16 Dose: 325 mg Atorvastatin Calcium (Lipitor) 10 mg PO HS [facility] Last Admin: 05/13/18 21:12 Dose: 10 mg Bisacodyl (Dulcolax) [address] DAILYPRN PRN PRN Reason: Constipation Calcium Carbonate (Tums) 1,000 mg PO Q4H PRN PRN Reason: Heartburn or Indigestion Cyanocobalamin (Vitamin B-12) 1,000 mcg PO DAILY [facility] Last Admin: 05/13/18 09:16 Dose: 1,000 mcg Cyclobenzaprine HCl (Flexeril) 10 mg PO TIDPRN PRN PRN Reason: Muscle Spasm Dextrose/Water (Dextrose 50%) 25 gm SLOW IVP PRN PRN PRN Reason: Hypoglycemia Last Admin: 05/11/18 06:35 Dose: 25 gm Digoxin (Lanoxin) 0.125 mg PO DAILY [facility] Last Admin: 05/14/18 05:05 Dose: 0.125 mg Famotidine (Pepcid) 20 mg PO 2100 [facility] Last Admin: 05/13/18 21:12 Dose: 20 mg Folic Acid (Folvite) 1 mg PO DAILY [facility] Last Admin: 05/13/18 09:16 Dose: 1 mg Glucagon (Glucagon) 1 mg IM PRN PRN PRN Reason: Hypoglycemia Guaifenesin (Robitussin Sf) 200 mg PO Q4H PRN PRN Reason: Cough Hydralazine HCl (Apresoline) 10 mg SLOW IVP Q4H PRN PRN Reason: SBP > 150 Dextrose/Water (D5w) 1,000 mls @ 0 mls/hr IV .Q0M PRN PRN Reason: Hypoglycemia Insulin Human Lispro (Humalog) 0 units SC .MILD SLIDING SCALE PRN PRN Reason: Mild Correctional Scale Insulin Human Lispro (Humalog) 0 units SC .BEDTIME SLIDING SC PRN PRN Reason: Bedtime Correctional Scale Iron/Minerals/Multivitamins (Theragran M) 1 tab PO DAILY [facility] Last Admin: 05/13/18 09:16 Dose: 1 tab Loperamide HCl (Imodium) 2 mg PO PRN PRN PRN Reason: Diarrhea/Loose Stools Loratadine (Claritin) 10 mg PO DAILYPRN PRN PRN Reason: Sinus Symptoms Metoprolol Succinate (Toprol Xl) 50 mg PO DAILY [facility] Last Admin: 05/14/18 05:05 Dose: 50 mg Mineral Oil/White Petrolatum (Eucerin Cream) 0 gm TOP BIDPRN PRN PRN Reason: Dry Skin Ondansetron HCl (Zofran Odt) 4 mg PO Q6H PRN PRN Reason: Nausea/Vomiting Ondansetron HCl (Zofran) 4 mg IVP Q6H PRN PRN Reason: Nausea/Vomiting Senna/Docusate Sodium (Senokot S) 2 tab PO BID PRN PRN Reason: Constipation Sodium Chloride ([place] Nasal [place] 0.65%) 0 ml EA NARE QIDPRN PRN PRN Reason: Nasal Congestion Sodium Chloride (Flush - Normal Saline) 10 ml IVF Q12HR [facility] Last Admin: 05/13/18 21:12 Dose: 10 ml Sodium Chloride (Flush - Normal Saline) 10 ml IVF PRN PRN PRN Reason: Saline Flush Thiamine HCl (Thiamine) 100 mg PO DAILY [facility] Last Admin: 05/13/18 09:16 Dose: 100 mg Throat Lozenges (Cepastat Lozenges) 1 renetta PO Q2H PRN PRN Reason: Sore Throat Zolpidem Tartrate (Ambien) 5 mg PO HSPRN PRN PRN Reason: Insomnia
[2018-05-14] MEDS: Aspirin 325 MG TAB PO SCH (10:00)
[2018-05-14] MEDS: Folic Acid 1 MG TAB PO SCH ×2 (10:00→10:01)
[2018-05-14] MEDS: Multivitamin W/ Minerals 1 TAB PO SCH (10:01)
[2018-05-14] MEDS: Cyanocobalamin (Vitamin B-12) 1,000 MCG TAB PO SCH (10:02)
[2018-05-14] MEDS ORDERED: CEFAZOLIN 2 GM/50 ML BAG ONE (10:57)
[2018-05-14] MEDS ORDERED: Fentanyl 100 MCG/2 ML VIAL ONE (11:50)
[2018-05-14] MEDS ORDERED: Midazolam HCl 2 mg/2 ml Vial ONE (11:51)
[2018-05-14] MEDS ORDERED: Lidocaine 1% (PF) 30 ML VIAL ONE (12:01)
[2018-05-14] MEDS ORDERED: Zolpidem Tartrate 5 MG TAB PO PRN (13:29)
--- NOTE | 2018-05-14 14:53 | RAD ---
FRONTAL VIEW CHEST: COMPARISON: 05/10/2018. CLINICAL INDICATION: Status post cardiac pacing device placement. FINDINGS: There is a dual-lead left subclavian cardiac pacing device in place. There is no post procedure pneu mothorax visualized. The cardiac silhouette and pulmonary vasculature are prominent. There is sligh t blunting of the left lateral costophrenic sulcus which may relate to small volume pleural fluid. M ild vascular calcifications are seen. IMPRESSION: 1. Status post left subclavian approach cardiac pacing device without a discrete pneumothorax. 2. Findings indicating congestive heart failure. POS: [facility]
[2018-05-14] MEDS: HYDROcodone/Acetaminophen 5/325 mg Tablet PO PRN (19:02)
[2018-05-14] MEDS: HumaLOG 300 UNITS/3 ML VIAL SC PRN (19:02)
--- NOTE | 2018-05-14 20:46 | EKG ---
Test Reason : Blood Pressure : / mmHG Vent. Rate : 120 BPM Atrial Rate : 131 BPM P-R Int : 000 ms QRS Dur : 068 ms QT Int : 250 ms P-R-T Axes : 000 056 220 degrees QTc Int : 353 ms Atrial fibrillation with rapid ventricular response Abnormal ECG When compared with ECG of 10-MAY-2018 16:31, (Unconfirmed) Vent. rate has increased BY [address] now depressed in Anterior leads T wave inversion more evident in Inferior leads Confirmed by Parth CHA ([id number]) on 05/14/2018 8:46:18 PM Referred By: Confirmed By:Parth CHA
[2018-05-14] MEDS: Famotidine 20 MG TAB PO SCH (21:58)
[2018-05-14] MEDS: Atorvastatin Calcium 10 MG TAB PO SCH (21:58)
[2018-05-15] MEDS: HYDROcodone/Acetaminophen 5/325 mg Tablet PO PRN (03:54)
[2018-05-15 05:14] LABS: Anion Gap 16 mmol/L (10-20); BUN (Urea Nitrogen) 6 mg/dL (9.8-20.1); Calc. Creatinine Clearance 65 mL/min (70-130); Carbon Dioxide 21 mmol/L (23-31); Chloride 97 mmol/L (98-107); Estimated GFR-MDRD Greater than 90; Glucose 115 mg/dL (80-115); Potassium 4.6 mmol/L (3.5-5.1); Sodium 129 mmol/L (136-145)
[2018-05-15 05:17] LABS: Digoxin 1.08 ng/mL (0.8-2.0)
[2018-05-15] MEDS ORDERED: Furosemide 20 MG/2 ML VIAL SLOW IVP SCH (07:30)
[2018-05-15 08:21] LABS: #Basophils 0.1 thou/uL (0.0-0.2); #Eosinphils 0.3 thou/uL (0.0-0.7); #Lymphocytes 3.3 thou/uL (1.20-3.40); #Monocytes 1.8 thou/uL (0.11-0.59); %Basophils 0.5 % (0.0-1.0); %Eosinophils 2.3 % (0.0-10.0); %Lymphocytes 26.5 % (21.0-51.0); %Monocytes 14.2 % (0.0-10.0); %Neutrophils 56.4 % (42.0-75.0); Hemoglobin 11.1 g/dL (12.0-16.0); MDiff Complete? YES; Macrocytosis SLIGHT = 6-15 cells (100X) (0-5/hpf); Mean Corpuscular HGB CONC 30.2 g/dL (32.0-36.0); Mean Corpuscular Hemoglobin 31.6 pg (27.0-31.0); Mean Platelet Volume 7.9 fL (7.4-10.4); Platelet Count 280 thou/uL (130-400); RBC Distribution Width 16.1 % (11.5-14.5); Red Blood Cell (RBC) Count 3.51 mill/uL (4.20-5.40); White Blood Cell (WBC) Count 12.4 thou/uL (4.8-10.8)
[2018-05-15] MEDS: Multivitamin W/ Minerals 1 TAB PO SCH (08:38)
[2018-05-15] MEDS: Cyanocobalamin (Vitamin B-12) 1,000 MCG TAB PO SCH (08:38)
[2018-05-15] MEDS: Aspirin 325 MG TAB PO SCH (08:38)
[2018-05-15] MEDS: Digoxin 0.125 MG TAB PO SCH (08:39)
--- NOTE | 2018-05-15 09:25 | PDOC.PN ---
- Subjective Encounter Start Date: 05/15/18 Encounter Start Time: 07:30 pacemaker placed, today has mild dyspnea, no fever Patient seen and examined. No overnight events - Objective Resuscitation Status - Order Detail: 05/10/18 13:04 Resuscitation Status Routine Resuscitation Status: FULL: Full Resuscitation MAR Reviewed: Yes Vital Signs & Weight: Vital Signs (12 hours) Temp Pulse Resp BP BP Pulse Ox 05/15/18 08:39 125 H 05/15/18 07:34 98.3 F 125 H 16 103/62 100 05/15/18 03:37 98.4 F 128 H 16 96/66 100 05/14/18 21:59 95 130/80 Weight Weight 124 lb 12.8 oz I&O: 05/14/18 05/15/18 05/16/18 06:59 06:59 06:59 Intake Total 300 200 Output Total 200 Balance 100 200 Result Diagrams: 05/15/18 04:25 05/15/18 04:25 Additional Labs: Accuchecks 05/15/18 05/14/18 05/14/18 03:38 21:58 16:37 POC Glucose 116 H 223 H 268 H 05/14/18 10:37 POC Glucose 120 H EKG Reviewed by me: Yes (pacing) Phys Exam - Physical Examination Constitutional: NAD HEENT: PERRLA, moist MMs, sclera anicteric Neck: no JVD, supple Respiratory: no wheezing, no rales, no rhonchi Cardiovascular: no significant murmur, irregular Gastrointestinal: soft, non-tender, no distention, positive bowel sounds Musculoskeletal: no edema, pulses present Neurological: non-focal, normal sensation, moves all 4 limbs Lymphatic: no nodes Psychiatric: normal affect, A&O x 3 Skin: no rash, normal turgor Dx/Plan (1) Chronic atrial fibrillation Code(s): I48.2 - CHRONIC ATRIAL FIBRILLATION Status: Chronic Comment: with paroxysmal RVR (2) Hyperkalemia Code(s): E87.5 - HYPERKALEMIA Status: Resolved Comment: improving, dc lisinopril (3) Hypoglycemia associated with type 2 diabetes mellitus Code(s): E11.649 - TYPE 2 DIABETES MELLITUS WITH HYPOGLYCEMIA WITHOUT COMA Status: Acute Comment: dc glimiperide (4) Hyponatremia Code(s): E87.1 - HYPO-OSMOLALITY AND HYPONATREMIA Status: Acute (5) Leucocytosis Code(s): D72.829 - ELEVATED WHITE BLOOD CELL COUNT, UNSPECIFIED Status: Acute (6) Alcohol abuse Code(s): F10.10 - ALCOHOL ABUSE, UNCOMPLICATED Status: Chronic (7) CAD (coronary artery disease) Code(s): I25.10 - ATHSCL HEART DISEASE OF [place] CORONARY ARTERY W/O ANG PCTRS Status: Chronic Qualifiers: Coronary Disease-Associated Artery/Lesion type: [place] artery [place] vs. transplanted heart: [place] heart Associated angina: without angina Qualified Code(s): I25.10 - Atherosclerotic heart disease of [place] coronary artery without angina pectoris (8) Chronic stage c diastolic heart failure Code(s): I50.32 - CHRONIC DIASTOLIC (CONGESTIVE) HEART FAILURE Status: Chronic (9) Dementia, alcoholic Code(s): F10.27 - ALCOHOL DEPENDENCE WITH ALCOHOL-INDUCED PERSISTING DEMENTIA Status: Chronic Qualifiers: Dementia behavioral disturbance: with behavioral disturbance Qualified Code (s): F10.27 - Alcohol dependence with alcohol-induced persisting dementia (10) Folate deficiency Code(s): E53.8 - DEFICIENCY OF OTHER SPECIFIED B GROUP VITAMINS Status: Chronic (11) Gastroesophageal reflux disease Code(s): K21.9 - GASTRO-ESOPHAGEAL REFLUX DISEASE WITHOUT ESOPHAGITIS Status: Chronic Qualifiers: Esophagitis presence: without esophagitis Qualified Code(s): K21.9 - Gastro -esophageal reflux disease without esophagitis (12) HTN (hypertension) Code(s): I10 - ESSENTIAL (PRIMARY) HYPERTENSION Status: Chronic Qualifiers: Hypertension type: essential hypertension Qualified Code(s): I10 - Essential (primary) hypertension (13) Macrocytic anemia Code(s): D53.9 - NUTRITIONAL ANEMIA, UNSPECIFIED Status: Chronic (14) Non compliance with medical treatment Code(s): Z91.19 - PATIENT'S NONCOMPLIANCE W OTH MEDICAL TREATMENT AND REGIMEN Status: Chronic (15) Diabetes Mellitus Type 2 in Nonobese Code(s): E11.9 - TYPE 2 DIABETES MELLITUS WITHOUT COMPLICATIONS Status: Chronic (16) S/P cardiac pacemaker procedure Status: Acute - Plan cont current plan of care * will give lasix 20 mg iv bid today * medication reviewed as below * symptomatic treatment * today will adjust rate control medication. Review of Systems - Review of Systems ENT: negative: Ear Pain, Ear Discharge, Nose Pain, Nose Discharge, Nose Congestion, Mouth Pain, Mouth Swelling, Throat Pain, Throat Swelling, Other Respiratory: SOB with Excertion. negative: Cough, Dry, Shortness of Breath, Hemoptysis, Pleuritic Pain, Sputum, Wheezing Cardiovascular: negative: chest pain, palpitations, orthopnea, paroxysmal nocturnal dyspnea, edema, light headedness, other Gastrointestinal: negative: Nausea, Vomiting, Abdominal Pain, Diarrhea, Constipation, Melena, Hematochezia, Other Genitourinary: negative: Dysuria, Frequency, Incontinence, Hematuria, Retention , Other Musculoskeletal: negative: Neck Pain, Shoulder Pain, Arm Pain, Back Pain, Hand Pain, Leg Pain, Foot Pain, Other - Medications/Allergies Allergies/Adverse Reactions: Allergies Allergy/AdvReac Type Severity Reaction Status Date / Time No Known Allergies Allergy Verified 05/10/18 20:02 Medications: Current Medications Acetaminophen (Tylenol) 650 mg PO Q4H PRN PRN Reason: Headache/Fever/Mild Pain (1-3) Hydrocodone Bitart/Acetaminophen ([place] 5/325) 1 tab PO Q4H PRN PRN Reason: Moderate Pain (4-6) Last Admin: 05/15/18 03:54 Dose: 1 tab Artificial Tears (Tears Naturale) 2 drop EA EYE PRN PRN PRN Reason: Dry Eyes Aspirin (Aspirin) 325 mg PO DAILY [facility] Last Admin: 05/15/18 08:38 Dose: 325 mg Atorvastatin Calcium (Lipitor) 10 mg PO HS [facility] Last Admin: 05/14/18 21:58 Dose: 10 mg Bisacodyl (Dulcolax) 10 mg [place] DAILYPRN PRN PRN Reason: Constipation Calcium Carbonate (Tums) 1,000 mg PO Q4H PRN PRN Reason: Heartburn or Indigestion Cyanocobalamin (Vitamin B-12) 1,000 mcg PO DAILY [facility] Last Admin: 05/15/18 08:38 Dose: 1,000 mcg Cyclobenzaprine HCl (Flexeril) 10 mg PO TIDPRN PRN PRN Reason: Muscle Spasm Dextrose/Water (Dextrose 50%) 25 gm SLOW IVP PRN PRN PRN Reason: Hypoglycemia Last Admin: 05/11/18 06:35 Dose: 25 gm Digoxin (Lanoxin) 0.125 mg PO DAILY [facility] Last Admin: 05/15/18 08:39 Dose: 0.125 mg Diltiazem HCl (Cardizem) 30 mg PO Q6H PRN PRN Reason: afib with heart rate >110 Famotidine (Pepcid) 20 mg PO 2100 [facility] Last Admin: 05/14/18 21:58 Dose: 20 mg Folic Acid (Folvite) 1 mg PO DAILY [facility] Last Admin: 05/14/18 10:01 Dose: 1 mg Furosemide (Lasix) 20 mg SLOW IVP 0600,1400 [facility] Glucagon (Glucagon) 1 mg IM PRN PRN PRN Reason: Hypoglycemia Guaifenesin (Robitussin Sf) 200 mg PO Q4H PRN PRN Reason: Cough Hydralazine HCl (Apresoline) 10 mg SLOW IVP Q4H PRN PRN Reason: SBP > 150 Dextrose/Water (D5w) 1,000 mls @ 0 mls/hr IV .Q0M PRN PRN Reason: Hypoglycemia Insulin Human Lispro (Humalog) 0 units SC .MILD SLIDING SCALE PRN PRN Reason: Mild Correctional Scale Last Admin: 05/14/18 19:02 Dose: 3 unit Insulin Human Lispro (Humalog) 0 units SC .BEDTIME SLIDING SC PRN PRN Reason: Bedtime Correctional Scale Iron/Minerals/Multivitamins (Theragran M) 1 tab PO DAILY [facility] Last Admin: 05/15/18 08:38 Dose: 1 tab Loperamide HCl (Imodium) 2 mg PO PRN PRN PRN Reason: Diarrhea/Loose Stools Loratadine (Claritin) 10 mg PO DAILYPRN PRN PRN Reason: Sinus Symptoms Metoprolol Succinate (Toprol Xl) 50 mg PO BID [facility] Last Admin: 05/15/18 08:39 Dose: 50 mg Mineral Oil/White Petrolatum (Eucerin Cream) 0 gm TOP BIDPRN PRN PRN Reason: Dry Skin Ondansetron HCl (Zofran Odt) 4 mg PO Q6H PRN PRN Reason: Nausea/Vomiting Ondansetron HCl (Zofran) 4 mg IVP Q6H PRN PRN Reason: Nausea/Vomiting Senna/Docusate Sodium (Senokot S) 2 tab PO BID PRN PRN Reason: Constipation Sodium Chloride ([place] Nasal [place] 0.65%) 0 ml EA NARE QIDPRN PRN PRN Reason: Nasal Congestion Sodium Chloride (Flush - Normal Saline) 10 ml IVF PRN PRN PRN Reason: Saline Flush Thiamine HCl (Thiamine) 100 mg PO DAILY [facility] Last Admin: 05/15/18 08:38 Dose: 100 mg Throat Lozenges (Cepastat Lozenges) 1 renetta PO Q2H PRN PRN Reason: Sore Throat Zolpidem Tartrate (Ambien) 5 mg PO HSPRN PRN PRN Reason: Insomnia
[2018-05-15] MEDS ORDERED: Digoxin 0.5 MG/2 ML AMP SLOW IVP SCH (10:45)
[2018-05-15] MEDS: HumaLOG 300 UNITS/3 ML VIAL SC PRN (12:01)
[2018-05-15] MEDS: Furosemide 20 MG/2 ML VIAL SLOW IVP SCH (13:46)
[2018-05-15] MEDS: Famotidine 20 MG TAB PO SCH (21:12)
[2018-05-15] MEDS: Atorvastatin Calcium 10 MG TAB PO SCH (21:12)
[2018-05-16] MEDS: Furosemide 20 MG/2 ML VIAL SLOW IVP SCH ×2 (06:33→13:59)
[2018-05-16 07:42] LABS: #Basophils 0.2 thou/uL (0.0-0.2); #Eosinphils 0.3 thou/uL (0.0-0.7); #Lymphocytes 3.2 thou/uL (1.20-3.40); #Monocytes 1.5 thou/uL (0.11-0.59); #Neutrophils 5.7 thou/uL (1.40-6.50); %Basophils 1.8 % (0.0-1.0); %Eosinophils 2.3 % (0.0-10.0); %Lymphocytes 29.7 % (21.0-51.0); %Monocytes 13.5 % (0.0-10.0); %Neutrophils 52.7 % (42.0-75.0); Hemoglobin 10.9 g/dL (12.0-16.0); Mean Corpuscular HGB CONC 31.6 g/dL (32.0-36.0); Mean Corpuscular Hemoglobin 32.6 pg (27.0-31.0); Mean Platelet Volume 7.4 fL (7.4-10.4); Platelet Count 269 thou/uL (130-400); RBC Distribution Width 15.6 % (11.5-14.5); Red Blood Cell (RBC) Count 3.33 mill/uL (4.20-5.40); White Blood Cell (WBC) Count 10.8 thou/uL (4.8-10.8)
[2018-05-16 08:07] LABS: Anion Gap 16 mmol/L (10-20); BUN (Urea Nitrogen) 7 mg/dL (9.8-20.1); Calc. Creatinine Clearance 67 mL/min (70-130); Calcium 9.3 mg/dL (7.8-10.44); Carbon Dioxide 23 mmol/L (23-31); Chloride 94 mmol/L (98-107); Estimated GFR-MDRD Greater than 90; Glucose 122 mg/dL (80-115); Sodium 129 mmol/L (136-145)
--- NOTE | 2018-05-16 10:18 | PDOC.PN ---
- Subjective Encounter Start Date: 05/16/18 Encounter Start Time: 08:30 Patient seen and examined. No new complaints. No overnight events - Objective Resuscitation Status - Order Detail: 05/10/18 13:04 Resuscitation Status Routine Resuscitation Status: FULL: Full Resuscitation MAR Reviewed: Yes Vital Signs & Weight: Vital Signs (12 hours) Temp Pulse Resp BP BP Pulse Ox 05/16/18 07:52 97.9 F 104 H 16 95/57 L 99 05/16/18 03:31 97.6 F 112 H 16 104/75 97 05/15/18 23:25 98.8 F 105 H 18 97/59 L 99 Weight Weight 128 lb I&O: 05/15/18 05/16/18 05/17/18 06:59 06:59 06:59 Intake Total 200 930 Output Total 1400 Balance 200 -470 Result Diagrams: 05/16/18 07:30 05/16/18 07:30 Additional Labs: Accuchecks 05/16/18 05/15/18 05/15/18 05:56 21:34 17:04 POC Glucose 135 H 166 H 126 H 05/15/18 11:20 POC Glucose 240 H EKG Reviewed by me: Yes (afib, pacing) Phys Exam - Physical Examination Constitutional: NAD HEENT: PERRLA, moist MMs, sclera anicteric Neck: no JVD, supple Respiratory: no wheezing, no rales, no rhonchi Cardiovascular: no significant murmur, no rub, irregular Gastrointestinal: soft, non-tender, no distention, positive bowel sounds Musculoskeletal: no edema, pulses present Neurological: non-focal, normal sensation Lymphatic: no nodes Psychiatric: normal affect, A&O x 3 Skin: no rash, normal turgor Dx/Plan (1) Chronic atrial fibrillation Code(s): I48.2 - CHRONIC ATRIAL FIBRILLATION Status: Chronic Comment: with paroxysmal RVR (2) Hyperkalemia Code(s): E87.5 - HYPERKALEMIA Status: Resolved Comment: improving, dc lisinopril (3) Hypoglycemia associated with type 2 diabetes mellitus Code(s): E11.649 - TYPE 2 DIABETES MELLITUS WITH HYPOGLYCEMIA WITHOUT COMA Status: Acute Comment: dc glimiperide (4) Hyponatremia Code(s): E87.1 - HYPO-OSMOLALITY AND HYPONATREMIA Status: Acute (5) Leucocytosis Code(s): D72.829 - ELEVATED WHITE BLOOD CELL COUNT, UNSPECIFIED Status: Acute (6) Alcohol abuse Code(s): F10.10 - ALCOHOL ABUSE, UNCOMPLICATED Status: Chronic (7) CAD (coronary artery disease) Code(s): I25.10 - ATHSCL HEART DISEASE OF [place] CORONARY ARTERY W/O ANG PCTRS Status: Chronic Qualifiers: Coronary Disease-Associated Artery/Lesion type: [place] artery [place] vs. transplanted heart: [place] heart Associated angina: without angina Qualified Code(s): I25.10 - Atherosclerotic heart disease of [place] coronary artery without angina pectoris (8) Chronic stage c diastolic heart failure Code(s): I50.32 - CHRONIC DIASTOLIC (CONGESTIVE) HEART FAILURE Status: Chronic (9) Dementia, alcoholic Code(s): F10.27 - ALCOHOL DEPENDENCE WITH ALCOHOL-INDUCED PERSISTING DEMENTIA Status: Chronic Qualifiers: Dementia behavioral disturbance: with behavioral disturbance Qualified Code (s): F10.27 - Alcohol dependence with alcohol-induced persisting dementia (10) Folate deficiency Code(s): E53.8 - DEFICIENCY OF OTHER SPECIFIED B GROUP VITAMINS Status: Chronic (11) Gastroesophageal reflux disease Code(s): K21.9 - GASTRO-ESOPHAGEAL REFLUX DISEASE WITHOUT ESOPHAGITIS Status: Chronic Qualifiers: Esophagitis presence: without esophagitis Qualified Code(s): K21.9 - Gastro -esophageal reflux disease without esophagitis (12) HTN (hypertension) Code(s): I10 - ESSENTIAL (PRIMARY) HYPERTENSION Status: Chronic Qualifiers: Hypertension type: essential hypertension Qualified Code(s): I10 - Essential (primary) hypertension (13) Macrocytic anemia Code(s): D53.9 - NUTRITIONAL ANEMIA, UNSPECIFIED Status: Chronic (14) Non compliance with medical treatment Code(s): Z91.19 - PATIENT'S NONCOMPLIANCE W OTH MEDICAL TREATMENT AND REGIMEN Status: Chronic (15) Diabetes Mellitus Type 2 in Nonobese Code(s): E11.9 - TYPE 2 DIABETES MELLITUS WITHOUT COMPLICATIONS Status: Chronic (16) S/P cardiac pacemaker procedure Status: Acute - Plan cont current plan of care * medication reviewed as below * symptomatic treatment * cardiology adjusting medication for rate control * overall stable. Review of Systems - Review of Systems ENT: negative: Ear Pain, Ear Discharge, Nose Pain, Nose Discharge, Nose Congestion, Mouth Pain, Mouth Swelling, Throat Pain, Throat Swelling, Other Respiratory: negative: Cough, Dry, Shortness of Breath, Hemoptysis, SOB with Excertion, Pleuritic Pain, Sputum, Wheezing Cardiovascular: negative: chest pain, palpitations, orthopnea, paroxysmal nocturnal dyspnea, edema, light headedness, other Gastrointestinal: negative: Nausea, Vomiting, Abdominal Pain, Diarrhea, Constipation, Melena, Hematochezia, Other Genitourinary: negative: Dysuria, Frequency, Incontinence, Hematuria, Retention , Other Musculoskeletal: negative: Neck Pain, Shoulder Pain, Arm Pain, Back Pain, Hand Pain, Leg Pain, Foot Pain, Other - Medications/Allergies Allergies/Adverse Reactions: Allergies Allergy/AdvReac Type Severity Reaction Status Date / Time No Known Allergies Allergy Verified 05/10/18 20:02 Medications: Current Medications Acetaminophen (Tylenol) 650 mg PO Q4H PRN PRN Reason: Headache/Fever/Mild Pain (1-3) Last Admin: 05/15/18 21:13 Dose: 650 mg Hydrocodone Bitart/Acetaminophen ([place] 5/325) 1 tab PO Q4H PRN PRN Reason: Moderate Pain (4-6) Last Admin: 05/15/18 03:54 Dose: 1 tab Artificial Tears (Tears Naturale) 2 drop EA EYE PRN PRN PRN Reason: Dry Eyes Aspirin (Aspirin) 325 mg PO DAILY [facility] Last Admin: 05/15/18 08:38 Dose: 325 mg Atorvastatin Calcium (Lipitor) 10 mg PO HS [facility] Last Admin: 05/15/18 21:12 Dose: 10 mg Bisacodyl (Dulcolax) 10 mg [place] DAILYPRN PRN PRN Reason: Constipation Calcium Carbonate (Tums) 1,000 mg PO Q4H PRN PRN Reason: Heartburn or Indigestion Cyanocobalamin (Vitamin B-12) 1,000 mcg PO DAILY [facility] Last Admin: 05/15/18 08:38 Dose: 1,000 mcg Cyclobenzaprine HCl (Flexeril) 10 mg PO TIDPRN PRN PRN Reason: Muscle Spasm Dextrose/Water (Dextrose 50%) 25 gm SLOW IVP PRN PRN PRN Reason: Hypoglycemia Last Admin: 05/11/18 06:35 Dose: 25 gm Digoxin (Lanoxin) 0.25 mg PO QAM [facility] Diltiazem HCl (Cardizem) 30 mg PO Q6H PRN PRN Reason: afib with heart rate >110 Last Admin: 05/15/18 10:06 Dose: 30 mg Famotidine (Pepcid) 20 mg PO 2100 [facility] Last Admin: 05/15/18 21:12 Dose: 20 mg Folic Acid (Folvite) 1 mg PO DAILY [facility] Last Admin: 05/14/18 10:01 Dose: 1 mg Furosemide (Lasix) 20 mg SLOW IVP 0600,1400 [facility] Last Admin: 05/16/18 06:33 Dose: 20 mg Glucagon (Glucagon) 1 mg IM PRN PRN PRN Reason: Hypoglycemia Guaifenesin (Robitussin Sf) 200 mg PO Q4H PRN PRN Reason: Cough Hydralazine HCl (Apresoline) 10 mg SLOW IVP Q4H PRN PRN Reason: SBP > 150 Dextrose/Water (D5w) 1,000 mls @ 0 mls/hr IV .Q0M PRN PRN Reason: Hypoglycemia Insulin Human Lispro (Humalog) 0 units SC .MILD SLIDING SCALE PRN PRN Reason: Mild Correctional Scale Last Admin: 05/15/18 12:01 Dose: 3 unit Insulin Human Lispro (Humalog) 0 units SC .BEDTIME SLIDING SC PRN PRN Reason: Bedtime Correctional Scale Iron/Minerals/Multivitamins (Theragran M) 1 tab PO DAILY [facility] Last Admin: 05/15/18 08:38 Dose: 1 tab Loperamide HCl (Imodium) 2 mg PO PRN PRN PRN Reason: Diarrhea/Loose Stools Loratadine (Claritin) 10 mg PO DAILYPRN PRN PRN Reason: Sinus Symptoms Metoprolol Succinate (Toprol Xl) 50 mg PO BID [facility] Last Admin: 05/15/18 21:12 Dose: 50 mg Mineral Oil/White Petrolatum (Eucerin Cream) 0 gm TOP BIDPRN PRN PRN Reason: Dry Skin Ondansetron HCl (Zofran Odt) 4 mg PO Q6H PRN PRN Reason: Nausea/Vomiting Ondansetron HCl (Zofran) 4 mg IVP Q6H PRN PRN Reason: Nausea/Vomiting Senna/Docusate Sodium (Senokot S) 2 tab PO BID PRN PRN Reason: Constipation Sodium Chloride ([place] Nasal [place] 0.65%) 0 ml EA NARE QIDPRN PRN PRN Reason: Nasal Congestion Sodium Chloride (Flush - Normal Saline) 10 ml IVF PRN PRN PRN Reason: Saline Flush Last Admin: 05/16/18 06:37 Dose: 10 ml Thiamine HCl (Thiamine) 100 mg PO DAILY [facility] Last Admin: 05/15/18 08:38 Dose: 100 mg Throat Lozenges (Cepastat Lozenges) 1 [place] PO Q2H PRN PRN Reason: Sore Throat Zolpidem Tartrate (Ambien) 5 mg PO HSPRN PRN PRN Reason: Insomnia
[2018-05-16] MEDS: Folic Acid 1 MG TAB PO SCH (10:24)
[2018-05-16] MEDS: Aspirin 325 MG TAB PO SCH (10:25)
[2018-05-16] MEDS: Multivitamin W/ Minerals 1 TAB PO SCH (10:25)
[2018-05-16] MEDS: Digoxin 0.25 MG TAB PO SCH (10:25)
[2018-05-16] MEDS: Cyanocobalamin (Vitamin B-12) 1,000 MCG TAB PO SCH (10:26)
[2018-05-16] MEDS: HYDROcodone/Acetaminophen 5/325 mg Tablet PO PRN (17:04)
[2018-05-16] MEDS: Famotidine 20 MG TAB PO SCH (21:02)
[2018-05-16] MEDS: Atorvastatin Calcium 10 MG TAB PO SCH (21:02)
[2018-05-17] MEDS: Furosemide 20 MG/2 ML VIAL SLOW IVP SCH ×2 (05:37→15:15)
[2018-05-17] MEDS: Cyanocobalamin (Vitamin B-12) 1,000 MCG TAB PO SCH (09:16)
[2018-05-17] MEDS: Folic Acid 1 MG TAB PO SCH (09:17)
[2018-05-17] MEDS: Multivitamin W/ Minerals 1 TAB PO SCH (09:17)
[2018-05-17] MEDS: Digoxin 0.25 MG TAB PO SCH (09:17)
[2018-05-17] MEDS: Aspirin 325 MG TAB PO SCH (09:17)
--- NOTE | 2018-05-17 10:42 | PDOC.PN ---
- Subjective Encounter Start Date: 05/17/18 Encounter Start Time: 08:10 Patient seen and examined. No new complaints. No overnight events - Objective Resuscitation Status - Order Detail: 05/10/18 13:04 Resuscitation Status Routine Resuscitation Status: FULL: Full Resuscitation MAR Reviewed: Yes Vital Signs & Weight: Vital Signs (12 hours) Temp Pulse Resp BP Pulse Ox 05/17/18 09:17 99 05/17/18 07:45 98 F 99 18 116/69 96 05/17/18 03:09 98.9 F 98 18 100/69 99 Weight Weight 128 lb I&O: 05/16/18 05/17/18 05/18/18 06:59 06:59 06:59 Intake Total 930 480 Output Total 1400 Balance -470 480 Result Diagrams: 05/16/18 07:30 05/16/18 07:30 Additional Labs: Accuchecks 05/17/18 05/16/18 05/16/18 05:57 20:46 16:35 POC Glucose 128 H 200 H 162 H 05/16/18 10:44 POC Glucose 154 H EKG Reviewed by me: Yes (afib) Phys Exam - Physical Examination Constitutional: NAD HEENT: PERRLA, moist MMs, sclera anicteric Neck: no JVD, supple Respiratory: no wheezing, no rales, no rhonchi Cardiovascular: no significant murmur, irregular Gastrointestinal: soft, non-tender, no distention, positive bowel sounds Musculoskeletal: no edema, pulses present Neurological: non-focal, normal sensation Lymphatic: no nodes Psychiatric: normal affect, A&O x 3 Skin: no rash, normal turgor Dx/Plan (1) Chronic atrial fibrillation Code(s): I48.2 - CHRONIC ATRIAL FIBRILLATION Status: Chronic Comment: with paroxysmal RVR (2) Hyperkalemia Code(s): E87.5 - HYPERKALEMIA Status: Resolved Comment: improving, dc lisinopril (3) Hypoglycemia associated with type 2 diabetes mellitus Code(s): E11.649 - TYPE 2 DIABETES MELLITUS WITH HYPOGLYCEMIA WITHOUT COMA Status: Acute Comment: dc glimiperide (4) Hyponatremia Code(s): E87.1 - HYPO-OSMOLALITY AND HYPONATREMIA Status: Acute (5) Leucocytosis Code(s): D72.829 - ELEVATED WHITE BLOOD CELL COUNT, UNSPECIFIED Status: Acute (6) Alcohol abuse Code(s): F10.10 - ALCOHOL ABUSE, UNCOMPLICATED Status: Chronic (7) CAD (coronary artery disease) Code(s): I25.10 - ATHSCL HEART DISEASE OF [place] CORONARY ARTERY W/O ANG PCTRS Status: Chronic Qualifiers: Coronary Disease-Associated Artery/Lesion type: [place] artery [place] vs. transplanted heart: [place] heart Associated angina: without angina Qualified Code(s): I25.10 - Atherosclerotic heart disease of [place] coronary artery without angina pectoris (8) Chronic stage c diastolic heart failure Code(s): I50.32 - CHRONIC DIASTOLIC (CONGESTIVE) HEART FAILURE Status: Chronic (9) Dementia, alcoholic Code(s): F10.27 - ALCOHOL DEPENDENCE WITH ALCOHOL-INDUCED PERSISTING DEMENTIA Status: Chronic Qualifiers: Dementia behavioral disturbance: with behavioral disturbance Qualified Code (s): F10.27 - Alcohol dependence with alcohol-induced persisting dementia (10) Folate deficiency Code(s): E53.8 - DEFICIENCY OF OTHER SPECIFIED B GROUP VITAMINS Status: Chronic (11) Gastroesophageal reflux disease Code(s): K21.9 - GASTRO-ESOPHAGEAL REFLUX DISEASE WITHOUT ESOPHAGITIS Status: Chronic Qualifiers: Esophagitis presence: without esophagitis Qualified Code(s): K21.9 - Gastro -esophageal reflux disease without esophagitis (12) HTN (hypertension) Code(s): I10 - ESSENTIAL (PRIMARY) HYPERTENSION Status: Chronic Qualifiers: Hypertension type: essential hypertension Qualified Code(s): I10 - Essential (primary) hypertension (13) Macrocytic anemia Code(s): D53.9 - NUTRITIONAL ANEMIA, UNSPECIFIED Status: Chronic (14) Non compliance with medical treatment Code(s): Z91.19 - PATIENT'S NONCOMPLIANCE W OTH MEDICAL TREATMENT AND REGIMEN Status: Chronic (15) Diabetes Mellitus Type 2 in Nonobese Code(s): E11.9 - TYPE 2 DIABETES MELLITUS WITHOUT COMPLICATIONS Status: Chronic (16) S/P cardiac pacemaker procedure Status: Acute - Plan cont current plan of care, plan discussed w/ family * medication reviewed as below * symptomatic treatment * once cardiology clears, will consider discharge later on today * updated plan of care to family. Review of Systems - Review of Systems ENT: negative: Ear Pain, Ear Discharge, Nose Pain, Nose Discharge, Nose Congestion, Mouth Pain, Mouth Swelling, Throat Pain, Throat Swelling, Other Respiratory: negative: Cough, Dry, Shortness of Breath, Hemoptysis, SOB with Excertion, Pleuritic Pain, Sputum, Wheezing Cardiovascular: negative: chest pain, palpitations, orthopnea, paroxysmal nocturnal dyspnea, edema, light headedness, other Gastrointestinal: negative: Nausea, Vomiting, Abdominal Pain, Diarrhea, Constipation, Melena, Hematochezia, Other Genitourinary: negative: Dysuria, Frequency, Incontinence, Hematuria, Retention , Other Musculoskeletal: negative: Neck Pain, Shoulder Pain, Arm Pain, Back Pain, Hand Pain, Leg Pain, Foot Pain, Other - Medications/Allergies Allergies/Adverse Reactions: Allergies Allergy/AdvReac Type Severity Reaction Status Date / Time No Known Allergies Allergy Verified 05/10/18 20:02 Medications: Current Medications Acetaminophen (Tylenol) 650 mg PO Q4H PRN PRN Reason: Headache/Fever/Mild Pain (1-3) Last Admin: 05/15/18 21:13 Dose: 650 mg Hydrocodone Bitart/Acetaminophen ([place] 5/325) 1 tab PO Q4H PRN PRN Reason: Moderate Pain (4-6) Last Admin: 05/16/18 17:04 Dose: 1 tab Artificial Tears (Tears Naturale) 2 drop EA EYE PRN PRN PRN Reason: Dry Eyes Aspirin (Aspirin) 325 mg PO DAILY [facility] Last Admin: 05/17/18 09:17 Dose: 325 mg Atorvastatin Calcium (Lipitor) 10 mg PO HS [facility] Last Admin: 05/16/18 21:02 Dose: 10 mg Bisacodyl (Dulcolax) 10 mg [place] DAILYPRN PRN PRN Reason: Constipation Calcium Carbonate (Tums) 1,000 mg PO Q4H PRN PRN Reason: Heartburn or Indigestion Cyanocobalamin (Vitamin B-12) 1,000 mcg PO DAILY [facility] Last Admin: 05/17/18 09:16 Dose: 1,000 mcg Cyclobenzaprine HCl (Flexeril) 10 mg PO TIDPRN PRN PRN Reason: Muscle Spasm Dextrose/Water (Dextrose 50%) 25 gm SLOW IVP PRN PRN PRN Reason: Hypoglycemia Last Admin: 05/11/18 06:35 Dose: 25 gm Digoxin (Lan[facility]) [facility] Last Admin: 05/17/18 09:17 Dose: 0.25 mg Diltiazem HCl (Cardizem) 30 mg PO Q6H PRN PRN Reason: afib with heart rate >110 Last Admin: 05/15/18 10:06 Dose: 30 mg Famotidine (Pepcid) 20 mg PO 2100 [facility] Last Admin: 05/16/18 21:02 Dose: 20 mg Folic Acid (Folvite) 1 mg PO DAILY [facility] Last Admin: 05/17/18 09:17 Dose: 1 mg Furosemide (Lasix) 20 mg SLOW IVP 0600,1400 [facility] Last Admin: 05/17/18 05:37 Dose: 20 mg Glucagon (Glucagon) 1 mg IM PRN PRN PRN Reason: Hypoglycemia Guaifenesin (Robitussin Sf) 200 mg PO Q4H PRN PRN Reason: Cough Last Admin: 05/16/18 19:08 Dose: 200 mg Hydralazine HCl (Apresoline) 10 mg SLOW IVP Q4H PRN PRN Reason: SBP > 150 Dextrose/Water (D5w) 1,000 mls @ 0 mls/hr IV .Q0M PRN PRN Reason: Hypoglycemia Insulin Human Lispro (Humalog) 0 units SC .MILD SLIDING SCALE PRN PRN Reason: Mild Correctional Scale Last Admin: 05/15/18 12:01 Dose: 3 unit Insulin Human Lispro (Humalog) 0 units SC .BEDTIME SLIDING SC PRN PRN Reason: Bedtime Correctional Scale Iron/Minerals/Multivitamins (Theragran M) 1 tab PO DAILY [facility] Last Admin: 05/17/18 09:17 Dose: 1 tab Loperamide HCl (Imodium) 2 mg PO PRN PRN PRN Reason: Diarrhea/Loose Stools Loratadine (Claritin) 10 mg PO DAILYPRN PRN PRN Reason: Sinus Symptoms Last Admin: 05/16/18 19:08 Dose: 10 mg Metoprolol Succinate (Toprol Xl) 50 mg PO BID [facility] Last Admin: 05/17/18 09:17 Dose: 50 mg Mineral Oil/White Petrolatum (Eucerin Cream) 0 gm TOP BIDPRN PRN PRN Reason: Dry Skin Ondansetron HCl (Zofran Odt) 4 mg PO Q6H PRN PRN Reason: Nausea/Vomiting Ondansetron HCl (Zofran) 4 mg IVP Q6H PRN PRN Reason: Nausea/Vomiting Last Admin: 05/16/18 19:03 Dose: 4 mg Senna/Docusate Sodium (Senokot S) 2 tab PO BID PRN PRN Reason: Constipation Sodium Chloride ([place] Nasal [place] 0.65%) 0 ml EA NARE QIDPRN PRN PRN Reason: Nasal Congestion Sodium Chloride (Flush - Normal Saline) 10 ml IVF PRN PRN PRN Reason: Saline Flush Last Admin: 05/17/18 09:18 Dose: 10 ml Thiamine HCl (Thiamine) 100 mg PO DAILY [facility] Last Admin: 05/17/18 09:17 Dose: 100 mg Throat Lozenges (Cepastat Lozenges) 1 [place] PO Q2H PRN PRN Reason: Sore Throat Zolpidem Tartrate (Ambien) 5 mg PO HSPRN PRN PRN Reason: Insomnia
[2018-05-17] MEDS: Atorvastatin Calcium 10 MG TAB PO SCH (20:42)
[2018-05-17] MEDS: Famotidine 20 MG TAB PO SCH (20:42)
[2018-05-18 05:30] LABS: Anion Gap 16 mmol/L (10-20); BUN (Urea Nitrogen) 10 mg/dL (9.8-20.1); Calc. Creatinine Clearance 57 mL/min (70-130); Calcium 8.9 mg/dL (7.8-10.44); Carbon Dioxide 24 mmol/L (23-31); Chloride 92 mmol/L (98-107); Estimated GFR-MDRD 79; Glucose 112 mg/dL (80-115); Potassium 4.1 mmol/L (3.5-5.1); Sodium 128 mmol/L (136-145)
[2018-05-18 05:35] LABS: Digoxin 2.36 ng/mL (0.8-2.0)
[2018-05-18] MEDS: Furosemide 20 MG/2 ML VIAL SLOW IVP SCH ×2 (05:49→15:03)
--- NOTE | 2018-05-18 06:33 | PRG ---
DATE OF SERVICE: 05/17/2018 SUBJECTIVE: Mrs. Dee seems to be doing well. Healing well from the BiV pacemaker implant last Thursday. OBJECTIVE DATA: VITAL SIGNS: Blood pressure is 134/72, heart rate 102, respiratory rate is 18, temperature 98.2 degrees Fahrenheit. GENERAL: Alert and oriented woman, in no apparent distress. NECK: Supple. Jugular veins are not distended. CHEST: Coarse without crackles. HEART: Sounds are irregular. S1, S2 variable. No murmur or gallop. Left subclavian pacemaker insertion site is without reaction. ABDOMEN: Benign. Bowel sounds positive. EXTREMITIES: Lower extremities without edema, clubbing, or cyanosis. LABORATORY DATA: White cell is 10.8, hemoglobin 10.9, platelet count is 269. Sodium 139, potassium is 4, BUN is 7, creatinine 0.75. The chest x-ray showed no pneumothorax. Pacemaker interrogation shows adequate LV and RV lead function. ASSESSMENT AND PLAN: 1. Mrs. Dee is a 68-year-old woman with history of chronic atrial fibrillation, some degree of tachycardia related cardiomyopathy, prior gastrointestinal bleed, noncompliance and poor candidacy for anticoagulation. She also has difficult rate control and had episode of bradycardia with prior medication regimen. She underwent a biventricular pacemaker implantation in preparation for probable need for AV esvin ablation in the future. For now, we will attempt rate control with incremental beta suresh and possibly diltiazem therapies are instituted with increased beta suresh today. 2. Pacemaker function appears to be adequate. Routine followup is requested. Continue antibiotic course for a week. 3. Cardiomyopathy, hopefully improved with rate control. 4. Poor anticoagulation candidate. If she can be placed back on anticoagulant, Watchman procedure is a remote possibility; although it would be difficult proposition in this poorly compliant patient. Job ID: [id number] [facility]
[2018-05-18] MEDS: Multivitamin W/ Minerals 1 TAB PO SCH (08:11)
[2018-05-18] MEDS: Aspirin 325 MG TAB PO SCH (08:12)
[2018-05-18] MEDS: Folic Acid 1 MG TAB PO SCH (08:12)
[2018-05-18] MEDS: Cyanocobalamin (Vitamin B-12) 1,000 MCG TAB PO SCH (08:12)
--- NOTE | 2018-05-18 10:52 | PDOC.PN ---
- Subjective Encounter Start Date: 05/18/18 Encounter Start Time: 08:40 Patient seen and examined. No new complaints. No overnight events her heart is still not optimally controlled - Objective Resuscitation Status - Order Detail: 05/10/18 13:04 Resuscitation Status Routine Resuscitation Status: FULL: Full Resuscitation MAR Reviewed: Yes Vital Signs & Weight: Vital Signs (12 hours) Temp Pulse Resp BP BP Pulse Ox 05/18/18 08:00 98.5 F 107 H 18 102/63 96 05/18/18 04:00 98.1 F 103 H 18 114/73 98 Weight Weight 127 lb 12.8 oz I&O: 05/17/18 05/18/18 05/19/18 06:59 06:59 06:59 Intake Total 480 1020 Output Total 400 Balance 480 620 Result Diagrams: 05/16/18 07:30 05/18/18 04:23 Additional Labs: Accuchecks 05/18/18 05/17/18 05/17/18 05:42 20:08 16:50 POC Glucose 129 H 226 H 146 H 05/17/18 10:46 POC Glucose 176 H EKG Reviewed by me: Yes (afib) Phys Exam - Physical Examination Constitutional: NAD HEENT: PERRLA, moist MMs, sclera anicteric Neck: no JVD, supple Respiratory: no wheezing, no rales, no rhonchi Cardiovascular: no significant murmur, irregular Gastrointestinal: soft, non-tender, no distention, positive bowel sounds Musculoskeletal: no edema, pulses present Neurological: non-focal, normal sensation, moves all 4 limbs Lymphatic: no nodes Psychiatric: normal affect, A&O x 3 Skin: no rash, normal turgor Dx/Plan (1) Chronic atrial fibrillation Code(s): I48.2 - CHRONIC ATRIAL FIBRILLATION Status: Chronic Comment: with paroxysmal RVR (2) Hyperkalemia Code(s): E87.5 - HYPERKALEMIA Status: Resolved Comment: improving, dc lisinopril (3) Hypoglycemia associated with type 2 diabetes mellitus Code(s): E11.649 - TYPE 2 DIABETES MELLITUS WITH HYPOGLYCEMIA WITHOUT COMA Status: Acute Comment: dc glimiperide (4) Hyponatremia Code(s): E87.1 - HYPO-OSMOLALITY AND HYPONATREMIA Status: Acute (5) Leucocytosis Code(s): D72.829 - ELEVATED WHITE BLOOD CELL COUNT, UNSPECIFIED Status: Acute (6) Alcohol abuse Code(s): F10.10 - ALCOHOL ABUSE, UNCOMPLICATED Status: Chronic (7) CAD (coronary artery disease) Code(s): I25.10 - ATHSCL HEART DISEASE OF [place] CORONARY ARTERY W/O ANG PCTRS Status: Chronic Qualifiers: Coronary Disease-Associated Artery/Lesion type: [place] artery [place] vs. transplanted heart: [place] heart Associated angina: without angina Qualified Code(s): I25.10 - Atherosclerotic heart disease of [place] coronary artery without angina pectoris (8) Chronic stage c diastolic heart failure Code(s): I50.32 - CHRONIC DIASTOLIC (CONGESTIVE) HEART FAILURE Status: Chronic (9) Dementia, alcoholic Code(s): F10.27 - ALCOHOL DEPENDENCE WITH ALCOHOL-INDUCED PERSISTING DEMENTIA Status: Chronic Qualifiers: Dementia behavioral disturbance: with behavioral disturbance Qualified Code (s): F10.27 - Alcohol dependence with alcohol-induced persisting dementia (10) Folate deficiency Code(s): E53.8 - DEFICIENCY OF OTHER SPECIFIED B GROUP VITAMINS Status: Chronic (11) Gastroesophageal reflux disease Code(s): K21.9 - GASTRO-ESOPHAGEAL REFLUX DISEASE WITHOUT ESOPHAGITIS Status: Chronic Qualifiers: Esophagitis presence: without esophagitis Qualified Code(s): K21.9 - Gastro -esophageal reflux disease without esophagitis (12) HTN (hypertension) Code(s): I10 - ESSENTIAL (PRIMARY) HYPERTENSION Status: Chronic Qualifiers: Hypertension type: essential hypertension Qualified Code(s): I10 - Essential (primary) hypertension (13) Macrocytic anemia Code(s): D53.9 - NUTRITIONAL ANEMIA, UNSPECIFIED Status: Chronic (14) Non compliance with medical treatment Code(s): Z91.19 - PATIENT'S NONCOMPLIANCE W OTH MEDICAL TREATMENT AND REGIMEN Status: Chronic (15) Diabetes Mellitus Type 2 in Nonobese Code(s): E11.9 - TYPE 2 DIABETES MELLITUS WITHOUT COMPLICATIONS Status: Chronic (16) S/P cardiac pacemaker procedure Status: Acute - Plan cont current plan of care * DC digoxin for high level * add cardizem cd 120 mg po daily * continue toprol xl * cardiology following * medication reviewed as below * symptomatic treatment. Review of Systems - Review of Systems ENT: negative: Ear Pain, Ear Discharge, Nose Pain, Nose Discharge, Nose Congestion, Mouth Pain, Mouth Swelling, Throat Pain, Throat Swelling, Other Respiratory: negative: Cough, Dry, Shortness of Breath, Hemoptysis, SOB with Excertion, Pleuritic Pain, Sputum, Wheezing Cardiovascular: negative: chest pain, palpitations, orthopnea, paroxysmal nocturnal dyspnea, edema, light headedness, other Gastrointestinal: negative: Nausea, Vomiting, Abdominal Pain, Diarrhea, Constipation, Melena, Hematochezia, Other Genitourinary: negative: Dysuria, Frequency, Incontinence, Hematuria, Retention , Other Musculoskeletal: negative: Neck Pain, Shoulder Pain, Arm Pain, Back Pain, Hand Pain, Leg Pain, Foot Pain, Other Skin: negative: Rash, Lesions, Ellis, Bruising, Other - Medications/Allergies Allergies/Adverse Reactions: Allergies Allergy/AdvReac Type Severity Reaction Status Date / Time No Known Allergies Allergy Verified 05/10/18 20:02 Medications: Current Medications Acetaminophen (Tylenol) 650 mg PO Q4H PRN PRN Reason: Headache/Fever/Mild Pain (1-3) Last Admin: 05/15/18 21:13 Dose: 650 mg Hydrocodone Bitart/Acetaminophen ([place] 5/325) 1 tab PO Q4H PRN PRN Reason: Moderate Pain (4-6) Last Admin: 05/16/18 17:04 Dose: 1 tab Artificial Tears (Tears Naturale) 2 drop EA EYE PRN PRN PRN Reason: Dry Eyes Aspirin (Aspirin) 325 mg PO DAILY [facility] Last Admin: 05/18/18 08:12 Dose: 325 mg Atorvastatin Calcium (Lipitor) 10 mg PO HS [facility] Last Admin: 05/17/18 20:42 Dose: 10 mg Bisacodyl (Dulcolax) 10 mg DC DAILYPRN PRN PRN Reason: Constipation Calcium Carbonate (Tums) 1,000 mg PO Q4H PRN PRN Reason: Heartburn or Indigestion Cyanocobalamin (Vitamin B-12) 1,000 mcg PO DAILY [facility] Last Admin: 05/18/18 08:12 Dose: 1,000 mcg Cyclobenzaprine HCl (Flexeril) 10 mg PO TIDPRN PRN PRN Reason: Muscle Spasm Dextrose/Water (Dextrose 50%) 25 gm SLOW IVP PRN PRN PRN Reason: Hypoglycemia Last Admin: 05/11/18 06:35 Dose: 25 gm Diltiazem HCl (Cardizem Cd) 120 mg PO DAILY [facility] Last Admin: 05/18/18 08:15 Dose: 120 mg Famotidine (Pepcid) 20 mg PO 2100 [facility] Last Admin: 05/17/18 20:42 Dose: 20 mg Folic Acid (Folvite) 1 mg PO DAILY [facility] Last Admin: 05/18/18 08:12 Dose: 1 mg Furosemide (Lasix) 20 mg SLOW IVP 0600,1400 [facility] Last Admin: 05/18/18 05:49 Dose: 20 mg Glucagon (Glucagon) 1 mg IM PRN PRN PRN Reason: Hypoglycemia Guaifenesin (Robitussin Sf) 200 mg PO Q4H PRN PRN Reason: Cough Last Admin: 05/16/18 19:08 Dose: 200 mg Hydralazine HCl (Apresoline) 10 mg SLOW IVP Q4H PRN PRN Reason: SBP > 150 Dextrose/Water (D5w) 1,000 mls @ 0 mls/hr IV .Q0M PRN PRN Reason: Hypoglycemia Insulin Human Lispro (Humalog) 0 units SC .MILD SLIDING SCALE PRN PRN Reason: Mild Correctional Scale Last Admin: 05/15/18 12:01 Dose: 3 unit Insulin Human Lispro (Humalog) 0 units SC .BEDTIME SLIDING SC PRN PRN Reason: Bedtime Correctional Scale Iron/Minerals/Multivitamins (Theragran M) 1 tab PO DAILY [facility] Last Admin: 05/18/18 08:11 Dose: 1 tab Loperamide HCl (Imodium) 2 mg PO PRN PRN PRN Reason: Diarrhea/Loose Stools Loratadine (Claritin) 10 mg PO DAILYPRN PRN PRN Reason: Sinus Symptoms Last Admin: 05/16/18 19:08 Dose: 10 mg Metoprolol Succinate (Toprol Xl) 75 mg PO BID [facility] Last Admin: 05/18/18 08:11 Dose: 75 mg Mineral Oil/White Petrolatum (Eucerin Cream) 0 gm TOP BIDPRN PRN PRN Reason: Dry Skin Ondansetron HCl (Zofran Odt) 4 mg PO Q6H PRN PRN Reason: Nausea/Vomiting Ondansetron HCl (Zofran) 4 mg IVP Q6H PRN PRN Reason: Nausea/Vomiting Last Admin: 05/16/18 19:03 Dose: 4 mg Senna/Docusate Sodium (Senokot S) 2 tab PO BID PRN PRN Reason: Constipation Sodium Chloride ([place] Nasal [place] 0.65%) 0 ml EA NARE QIDPRN PRN PRN Reason: Nasal Congestion Sodium Chloride (Flush - Normal Saline) 10 ml IVF PRN PRN PRN Reason: Saline Flush Last Admin: 05/18/18 08:12 Dose: 10 ml Thiamine HCl (Thiamine) 100 mg PO DAILY [facility] Last Admin: 05/18/18 08:12 Dose: 100 mg Throat Lozenges (Cepastat Lozenges) 1 renetta PO Q2H PRN PRN Reason: Sore Throat Zolpidem Tartrate (Ambien) 5 mg PO HSPRN PRN PRN Reason: Insomnia
--- NOTE | 2018-05-18 13:56 | PDOC.CTH ---
Cardiology Progress Note - Subjective EP PROGRESS NOTE: 05/18/18 Seen and evaluated as follow up for atrial fibrillation and device management. No new cardiac concerns or complaints. - Objective Vital Signs Temp Pulse Pulse Pulse Resp BP BP 05/18/18 11:23 102 H 94 113/76 102/61 05/18/18 11:08 98.3 F 75 16 05/18/18 08:00 98.5 F 107 H 18 05/18/18 04:00 98.1 F 103 H 18 BP BP Pulse Ox Pulse Ox Pulse Ox 05/18/18 11:23 100 100 05/18/18 11:08 95/56 L 98 05/18/18 08:00 102/63 96 05/18/18 04:00 114/73 98 Weight 127 lb 12.8 oz 05/17/18 05/18/18 05/19/18 06:59 06:59 06:59 Intake Total 480 1020 Output Total 400 Balance 480 620 - Physical Examination General/Neuro: alert & oriented x3, NAD Neck: carotid US brisk, no JVD present Lungs: unlabored respirations Heart: PMI normal Abdomen: NT/ND, soft Other PE findings: PPM implant site, left chest wall. CDI - Telemetry Telemetry Rhythm: AF, MANAGER SHIFT pacing. - Labs Result Diagrams: 05/16/18 07:30 05/18/18 04:23 Troponin/CKMB Troponin I 0.019 ng/mL (< 0.028) 05/10/18 08:47 - Assessment/Plan 1. Chronic atrial fibrillation - moderate rate control (Toprol XL 75mg BID and Diltiazem CD 120mg QD) - slightly dig toxic (2.3) on hold for a few days by cardiology then will be resumed (250mcg daily) 2. Medical noncompliance -attempted AAD regimen with Multaq and flecainide in past 3. History of GI bleed 4. Bi ventricular pacemaker - placed last week in anticipation of AVJ ablation in the future - normal function 5. Cardiomyopathy - possibly tachycardia mediated 6. CHADS2-VASC: >/= 3 - prior GI bleeds, poor candidate for anticoagulation also with her poor medical compliance. Continue rate control. Use dig as tolerated. Plan fof AVJ ablation as outpatient in 1-2 months.
[2018-05-18] MEDS: HumaLOG 300 UNITS/3 ML VIAL SC PRN (17:44)
[2018-05-18] MEDS: Famotidine 20 MG TAB PO SCH (20:18)
[2018-05-18] MEDS: Atorvastatin Calcium 10 MG TAB PO SCH (20:18)
[2018-05-19] MEDS: Furosemide 20 MG/2 ML VIAL SLOW IVP SCH (05:30)
[2018-05-19] MEDS: Aspirin 325 MG TAB PO SCH (08:28)
[2018-05-19] MEDS: Folic Acid 1 MG TAB PO SCH (08:30)
[2018-05-19] MEDS: Multivitamin W/ Minerals 1 TAB PO SCH (08:30)
[2018-05-19] MEDS: Cyanocobalamin (Vitamin B-12) 1,000 MCG TAB PO SCH (08:30)
[2018-05-19] MEDS ORDERED: Digoxin 0.25 MG TAB PO SCH (09:00)
[2018-05-19 11:43] VITALS: BP 136/50; TEMP 97.6
--- NOTE | 2018-05-19 12:16 | DIS ---
DATE OF ADMISSION: 05/13/2018 DATE OF DISCHARGE: 05/19/2018 DISCHARGE SUMMARY ADDENDUM: DISCHARGE DISPOSITION: Home. PRIMARY DISCHARGE DIAGNOSES: 1. Hyperkalemia on admission, resolved. 2. Atrial fibrillation with paroxysmal rapid ventricular response. 3. Status post cardiac pacemaker procedure. 4. Hypoglycemia associated with diabetes. 5. Hyponatremia. 6. Leukocytosis, resolved. SECONDARY DISCHARGE DIAGNOSES: Chronic stage C diastolic heart failure, alcoholic dementia, diabetes type 2, medication noncompliance, chronic atrial fibrillation, folate deficiency, gastroesophageal reflux disease, hypertension, noncompliance with the treatment, and macrocytic anemia. PRIMARY PROCEDURE/OPERATION: Cardiac pacemaker procedure. RADIOLOGICAL INVESTIGATION: During this admission, CT brain negative, chest x-ray unremarkable. SIGNIFICANT LABORATORY DATA: Most recent labs; WBC 10.8, hemoglobin 10.9, and platelets 269. Sodium 128, creatinine 0.87, and calcium 8.9. DISCHARGE MEDICATIONS: 1. Keflex 500 mg p.o. q.6 hourly for 5 days. 2. Aspirin 325 mg daily. 3. Flexeril 5 mg b.i.d. p.r.n. 4. Lasix 20 mg daily. 5. Metformin 1000 mg b.i.d. 6. Zocor 20 mg p.o. q.h.s. 7. Vitamin B12 of 1000 mcg daily. 8. Digoxin 0.125 mg daily. 9. Cardizem CD 120 mg daily. 10. Pepcid 20 mg b.i.d. 11. Folic acid 1 mg p.o. daily. 12. Toprol-XL 75 mg p.o. b.i.d. 13. Multivitamin one tablet daily. 14. Thiamine 100 mg daily. CONTRAINDICATION: None. CODE STATUS: Full code. INPATIENT FIBERGLASS FINISHER: Dr. Manuel was following while in the hospital. Pit Recorder was consulted while in the hospital. TEST RESULT PENDING ON DISCHARGE: None. ALLERGIES: NO KNOWN DRUG ALLERGIES. DISCHARGE PLAN: Post hospital, the patient will follow up with primary care physician in 1 or 2 weeks. The patient will follow up with Dr. Nilton Mcgrath in 2 to 3 weeks. The patient is advised to resume digoxin tomorrow. HOSPITAL COURSE: A 68-year-old female, who was admitted by me. Please see my HPI for further detail. This patient was having generalized weakness. On admission, she was having atrial fibrillation with paroxysmal RVR. She had hyperkalemia, which was resolved. She had hyponatremia. During this admission, the patient was initially planned for discharge to rehab, but she did very well and that is why she did not require any rehab placement. Please see my discharge summary dictated on May 11, 2018, for more detail. After that, the patient continued to be in rapid heart rate and that is why Cardiology decided to do pacemaker procedure, and after pacemaker procedure, we increased metoprolol and added Cardizem as well as digoxin. The patient's rate is under control. This patient may need Watchman procedure versus AV esvin junctional block as an outpatient basis. This patient is noncompliant and that is why she is not a candidate for any chronic anticoagulation therapy. Risk and benefit discussed with the patient about that. I have seen and examined the patient at bedside today. PHYSICAL EXAMINATION: VITAL SIGNS: Currently, temperature 97.6, pulse 87, respiratory rate 17, saturation 100% on room air, blood pressure 136/50, and weight 127 pounds. GENERAL: The patient is currently alert and awake, in no obvious acute distress. HEENT: Head, normocephalic and atraumatic. Eyes; pupils round and reactive to light. Extraocular muscle intact. ENT, oropharynx within normal limits. Moist mucous membranes. No oral lesion. No pharyngeal erythema. No exudate. NECK: Supple. No JVD. No thyromegaly. No carotid bruit. LUNGS: Clear without any rhonchi. CARDIAC: S1 and S2. Irregular without any murmur. ABDOMEN: Soft and benign. EXTREMITIES: No edema. NEUROLOGIC: Nonfocal examination. This patient is continuously high risk for recurrent admission. Job ID: [id number]
--- NOTE | 2018-05-19 12:33 | PDOC.PN ---
- Subjective Encounter Start Date: 05/19/18 Encounter Start Time: 09:15 Patient seen and examined. No new complaints. No overnight events - Objective Resuscitation Status - Order Detail: 05/10/18 13:04 Resuscitation Status Routine Resuscitation Status: FULL: Full Resuscitation MAR Reviewed: Yes Vital Signs & Weight: Vital Signs (12 hours) Temp Pulse Resp BP BP Pulse Ox 05/19/18 11:10 97.6 F 87 17 136/50 L 100 05/19/18 08:20 98.1 F 85 15 105/63 99 05/19/18 04:00 98.2 F 86 18 103/55 L 99 Weight Weight 127 lb 3.2 oz I&O: 05/18/18 05/19/18 05/20/18 06:59 06:59 06:59 Intake Total 1020 1490 Output Total 400 700 Balance 620 790 Result Diagrams: 05/16/18 07:30 05/18/18 04:23 Additional Labs: Accuchecks 05/19/18 05/18/18 05/18/18 06:02 20:33 16:46 POC Glucose 117 H 199 H 200 H EKG Reviewed by me: Yes Phys Exam - Physical Examination Constitutional: NAD HEENT: PERRLA, moist MMs, sclera anicteric Neck: no JVD, supple Respiratory: no wheezing, no rales, no rhonchi Cardiovascular: no significant murmur, irregular Gastrointestinal: soft, non-tender, no distention, positive bowel sounds Musculoskeletal: no edema, pulses present Neurological: non-focal, normal sensation Psychiatric: normal affect Skin: no rash, normal turgor Dx/Plan (1) Chronic atrial fibrillation Code(s): I48.2 - CHRONIC ATRIAL FIBRILLATION Status: Chronic Comment: with paroxysmal RVR (2) Hyperkalemia Code(s): E87.5 - HYPERKALEMIA Status: Resolved Comment: improving, dc lisinopril (3) Hypoglycemia associated with type 2 diabetes mellitus Code(s): E11.649 - TYPE 2 DIABETES MELLITUS WITH HYPOGLYCEMIA WITHOUT COMA Status: Acute Comment: dc glimiperide (4) Hyponatremia Code(s): E87.1 - HYPO-OSMOLALITY AND HYPONATREMIA Status: Acute (5) Leucocytosis Code(s): D72.829 - ELEVATED WHITE BLOOD CELL COUNT, UNSPECIFIED Status: Acute (6) Alcohol abuse Code(s): F10.10 - ALCOHOL ABUSE, UNCOMPLICATED Status: Chronic (7) CAD (coronary artery disease) Code(s): I25.10 - ATHSCL HEART DISEASE OF [place] CORONARY ARTERY W/O ANG PCTRS Status: Chronic Qualifiers: Coronary Disease-Associated Artery/Lesion type: [place] artery [place] vs. transplanted heart: [place] heart Associated angina: without angina Qualified Code(s): I25.10 - Atherosclerotic heart disease of [place] coronary artery without angina pectoris (8) Chronic stage c diastolic heart failure Code(s): I50.32 - CHRONIC DIASTOLIC (CONGESTIVE) HEART FAILURE Status: Chronic (9) Dementia, alcoholic Code(s): F10.27 - ALCOHOL DEPENDENCE WITH ALCOHOL-INDUCED PERSISTING DEMENTIA Status: Chronic Qualifiers: Dementia behavioral disturbance: with behavioral disturbance Qualified Code (s): F10.27 - Alcohol dependence with alcohol-induced persisting dementia (10) Folate deficiency Code(s): E53.8 - DEFICIENCY OF OTHER SPECIFIED B GROUP VITAMINS Status: Chronic (11) Gastroesophageal reflux disease Code(s): K21.9 - GASTRO-ESOPHAGEAL REFLUX DISEASE WITHOUT ESOPHAGITIS Status: Chronic Qualifiers: Esophagitis presence: without esophagitis Qualified Code(s): K21.9 - Gastro -esophageal reflux disease without esophagitis (12) HTN (hypertension) Code(s): I10 - ESSENTIAL (PRIMARY) HYPERTENSION Status: Chronic Qualifiers: Hypertension type: essential hypertension Qualified Code(s): I10 - Essential (primary) hypertension (13) Macrocytic anemia Code(s): D53.9 - NUTRITIONAL ANEMIA, UNSPECIFIED Status: Chronic (14) Non compliance with medical treatment Code(s): Z91.19 - PATIENT'S NONCOMPLIANCE W OTH MEDICAL TREATMENT AND REGIMEN Status: Chronic (15) Diabetes Mellitus Type 2 in Nonobese Code(s): E11.9 - TYPE 2 DIABETES MELLITUS WITHOUT COMPLICATIONS Status: Chronic (16) S/P cardiac pacemaker procedure Status: Acute - Plan cont current plan of care * medication reviewed as below * symptomatic treatment * see discharge susana. Review of Systems - Review of Systems ENT: negative: Ear Pain, Ear Discharge, Nose Pain, Nose Discharge, Nose Congestion, Mouth Pain, Mouth Swelling, Throat Pain, Throat Swelling, Other Respiratory: negative: Cough, Dry, Shortness of Breath, Hemoptysis, SOB with Excertion, Pleuritic Pain, Sputum, Wheezing Cardiovascular: negative: chest pain, palpitations, orthopnea, paroxysmal nocturnal dyspnea, edema, light headedness, other Gastrointestinal: negative: Nausea, Vomiting, Abdominal Pain, Diarrhea, Constipation, Melena, Hematochezia, Other Genitourinary: negative: Dysuria, Frequency, Incontinence, Hematuria, Retention , Other Musculoskeletal: negative: Neck Pain, Shoulder Pain, Arm Pain, Back Pain, Hand Pain, Leg Pain, Foot Pain, Other - Medications/Allergies Allergies/Adverse Reactions: Allergies Allergy/AdvReac Type Severity Reaction Status Date / Time No Known Allergies Allergy Verified 05/10/18 20:02 Medications: Current Medications Acetaminophen (Tylenol) 650 mg PO Q4H PRN PRN Reason: Headache/Fever/Mild Pain (1-3) Last Admin: 05/15/18 21:13 Dose: 650 mg Hydrocodone Bitart/Acetaminophen ([place] 5/325) 1 tab PO Q4H PRN PRN Reason: Moderate Pain (4-6) Last Admin: 05/16/18 17:04 Dose: 1 tab Artificial Tears (Tears Naturale) 2 drop EA EYE PRN PRN PRN Reason: Dry Eyes Aspirin (Aspirin) 325 mg PO DAILY [facility] Last Admin: 05/19/18 08:28 Dose: 325 mg Atorvastatin Calcium (Lipitor) 10 mg PO HS [facility] Last Admin: 05/18/18 20:18 Dose: 10 mg Bisacodyl (Dulcolax) 10 mg HI DAILYPRN PRN PRN Reason: Constipation Calcium Carbonate (Tums) 1,000 mg PO Q4H PRN PRN Reason: Heartburn or Indigestion Cyanocobalamin (Vitamin B-12) 1,000 mcg PO DAILY [facility] Last Admin: 05/19/18 08:30 Dose: 1,000 mcg Cyclobenzaprine HCl (Flexeril) 10 mg PO TIDPRN PRN PRN Reason: Muscle Spasm Dextrose/Water (Dextrose 50%) 25 gm SLOW IVP PRN PRN PRN Reason: Hypoglycemia Last Admin: 05/11/18 06:35 Dose: 25 gm Digoxin (Lanoxin) 0.125 mg PO DAILY [facility] Diltiazem HCl (Cardizem Cd) 120 mg PO DAILY [facility] Last Admin: 05/19/18 08:28 Dose: 120 mg Famotidine (Pepcid) 20 mg PO 2100 [facility] Last Admin: 05/18/18 20:18 Dose: 20 mg Folic Acid (Folvite) 1 mg PO DAILY [facility] Last Admin: 05/19/18 08:30 Dose: 1 mg Furosemide (Lasix) 20 mg SLOW IVP 0600,1400 [facility] Last Admin: 05/19/18 05:30 Dose: 20 mg Glucagon (Glucagon) 1 mg IM PRN PRN PRN Reason: Hypoglycemia Guaifenesin (Robitussin Sf) 200 mg PO Q4H PRN PRN Reason: Cough Last Admin: 05/16/18 19:08 Dose: 200 mg Hydralazine HCl (Apresoline) 10 mg SLOW IVP Q4H PRN PRN Reason: SBP > 150 Dextrose/Water (D5w) 1,000 mls @ 0 mls/hr IV .Q0M PRN PRN Reason: Hypoglycemia Insulin Human Lispro (Humalog) 0 units SC .MILD SLIDING SCALE PRN PRN Reason: Mild Correctional Scale Last Admin: 05/18/18 17:44 Dose: 2 unit Insulin Human Lispro (Humalog) 0 units SC .BEDTIME SLIDING SC PRN PRN Reason: Bedtime [place] Scale Iron/Minerals/Multivitamins (Theragran M) 1 tab PO DAILY [facility] Last Admin: 05/19/18 08:30 Dose: 1 tab Loperamide HCl (Imodium) 2 mg PO PRN PRN PRN Reason: Diarrhea/Loose Stools Loratadine (Claritin) 10 mg PO DAILYPRN PRN PRN Reason: Sinus Symptoms Last Admin: 05/16/18 19:08 Dose: 10 mg Metoprolol Succinate (Toprol Xl) 75 mg PO BID [facility] Last Admin: 05/19/18 08:28 Dose: 75 mg Mineral Oil/White Petrolatum (Eucerin Cream) 0 gm TOP BIDPRN PRN PRN Reason: Dry Skin Ondansetron HCl (Zofran Odt) 4 mg PO Q6H PRN PRN Reason: Nausea/Vomiting Ondansetron HCl (Zofran) 4 mg IVP Q6H PRN PRN Reason: Nausea/Vomiting Last Admin: 05/16/18 19:03 Dose: 4 mg Senna/Docusate Sodium (Senokot S) 2 tab PO BID PRN PRN Reason: Constipation Sodium Chloride ([place] Nasal [place] 0.65%) 0 ml EA NARE QIDPRN PRN PRN Reason: Nasal Congestion Sodium Chloride (Flush - Normal Saline) 10 ml IVF PRN PRN PRN Reason: Saline Flush Last Admin: 05/18/18 08:12 Dose: 10 ml Thiamine HCl (Thiamine) 100 mg PO DAILY [facility] Last Admin: 05/19/18 08:28 Dose: 100 mg Throat Lozenges (Cepastat Lozenges) 1 renetta PO Q2H PRN PRN Reason: Sore Throat Zolpidem Tartrate (Ambien) 5 mg PO HSPRN PRN PRN Reason: Insomnia
[2018-05-20] MEDS ORDERED: Digoxin 0.125 MG TAB PO SCH (09:00)
== END 2018-05-19 14:08 | disposition home or self-care (01) | DRG 243 ==
LOC: ERS 08:17 → ERHOLD 16:23 → 2SW 17:41 → OBSVTOIN 05-13 12:47 → 2NO 05-16 13:50
PROVIDERS: ADMIT Internal Medicine; ATTEND Internal Medicine
PROC: 0JH606Z Insertion of Pacemaker, Dual Chamber into Chest Subcutaneous Tissue and Fascia, Open Approach (ICD-10-PCS; principal; 2018-05-14)
PROC: 02HK3JZ Insertion of Pacemaker Lead into Right Ventricle, Percutaneous Approach (ICD-10-PCS; 2018-05-14)
PROC: 02HL3JZ Insertion of Pacemaker Lead into Left Ventricle, Percutaneous Approach (ICD-10-PCS; 2018-05-14)
DX: I48.2 Chronic atrial fibrillation (principal); E87.1 Hypo-osmolality and hyponatremia; I50.32 Chronic diastolic (congestive) heart failure; F10.27 Alcohol dependence with alcohol-induced persisting dementia; M48.56XA Collapsed vertebra, not elsewhere classified, lumbar region, initial encounter for fracture; E87.5 Hyperkalemia; E11.649 Type 2 diabetes mellitus with hypoglycemia without coma; D72.829 Elevated white blood cell count, unspecified; I25.10 Atherosclerotic heart disease of native coronary artery without angina pectoris; I11.0 Hypertensive heart disease with heart failure; E53.8 Deficiency of other specified B group vitamins; K21.9 Gastro-esophageal reflux disease without esophagitis; D53.9 Nutritional anemia, unspecified; I25.2 Old myocardial infarction; Z86.73 Personal history of transient ischemic attack (TIA), and cerebral infarction without residual deficits; E86.9 Volume depletion, unspecified; E78.5 Hyperlipidemia, unspecified; I42.8 Other cardiomyopathies; I48.0 Paroxysmal atrial fibrillation; Z91.14 Patient's other noncompliance with medication regimen; T46.4X5A Adverse effect of angiotensin-converting-enzyme inhibitors, initial encounter; I49.5 Sick sinus syndrome; F32.9 Major depressive disorder, single episode, unspecified
CPT/HCPCS: 33225; 33249; 36005; 36415; 36416; 70450; 71045; 71046; 75820; 80048; 80053; 80162; 81003; 82533; 82570; 83880; 83930; 83935; 84300; 84443; 84484; 85025; 93005; 93010; 93798; 96361; 96374; 96375; 99152; 99153; C1882; C1898; C1900; J1160; J1940; J2001; J2250; J2405; J3010; J3490; J7050

== ENCOUNTER 2018-08-16 10:04 | Day surgery (SDC) | payer MEDICARE ==
[2018-07-30 15:40] VITALS: BMI 27.4
[2018-08-16 11:11] LABS: #Eosinphils 0.1 thou/uL (0.0-0.7); #Lymphocytes 3.1 thou/uL (1.20-3.40); #Monocytes 1.1 thou/uL (0.11-0.59); #Neutrophils 7.4 thou/uL (1.40-6.50); %Basophils 0.4 % (0.0-1.0); %Eosinophils 0.8 % (0.0-10.0); %Lymphocytes 26.1 % (21.0-51.0); %Monocytes 9.6 % (0.0-10.0); %Neutrophils 63.1 % (42.0-75.0); Hemoglobin 9.6 g/dL (12.0-16.0); Mean Corpuscular HGB CONC 31.7 g/dL (32.0-36.0); Mean Corpuscular Hemoglobin 27.2 pg (27.0-31.0); Mean Corpuscular Volume 85.8 fL (78.0-98.0); Mean Platelet Volume 7.7 fL (7.4-10.4); Platelet Count 260 thou/uL (130-400); RBC Distribution Width 14.3 % (11.5-14.5); Red Blood Cell (RBC) Count 3.51 mill/uL (4.20-5.40); White Blood Cell (WBC) Count 11.7 thou/uL (4.8-10.8)
[2018-08-16 11:16] LABS: INR-International Normal Ratio 1.1; Prothrombin Time 13.9 SEC (12.0-14.7)
[2018-08-16 11:17] LABS: PTT 36.1 SEC (22.9-36.1)
[2018-08-16 11:35] LABS: Anion Gap 13 mmol/L (10-20); BUN (Urea Nitrogen) 11 mg/dL (9.8-20.1); Calc. Creatinine Clearance 69 mL/min (70-130); Carbon Dioxide 28 mmol/L (23-31); Chloride 96 mmol/L (98-107); Estimated GFR-MDRD 81; Glucose 105 mg/dL (80-115); Potassium 3.3 mmol/L (3.5-5.1); Sodium 134 mmol/L (136-145)
[2018-08-16] MEDS ORDERED: PROPOFOL 200 MG/20 ML VIAL ONE (11:43)
[2018-08-16] MEDS ORDERED: ePHEDrine 50 MG/ML VIAL ONE (11:43)
[2018-08-16] MEDS ORDERED: PHENYLEPHRINE-NS 100 MCG/ML 10 ML SYRINGE ONE (11:43)
[2018-08-16] MEDS ORDERED: DOPamine 400 MG/D5W 250 ML 250 ML ONE (13:47)
--- NOTE | 2018-08-16 17:39 | OP ---
DATE OF PROCEDURE: 08/16/2018 PROCEDURE PERFORMED: AV esvin ablation. REASON FOR PROCEDURE: Ms. Dee is a 68-year-old woman with prior history of the atrial fibrillation, rapid rates, history of extreme noncompliance, status post Bi-V pacemaker pacing in the past. She is here for AV esvin ablation. DESCRIPTION OF PROCEDURE: The patient received propofol by Anesthesia specialist. Left and right femoral venous area were prepped and draped. The right femoral vein was anesthetized using subcutaneous lidocaine and under ultrasound guidance, the right femoral vein was cannulated. An 8-[place] short sheath was introduced through which an 8 mm ablation catheter was advanced to the right atrium under fluoroscopic guidance and intracardiac monitoring. The His bundle and AV node were delineated. Following findings were noted; baseline rhythm was atrial fibrillation rapid rates, QRS duration 67 milliseconds, QT 253, and the HV is 37 milliseconds noted. After mapping the His bundle, the catheter was withdrawn into the compact AV esvin area. Ablation at the fast pathway and slow pathway eventually yielded junctional escape rhythm at a rate of 45 beats per minute. Total duration of ablation was 6 ablation lesions delivered at 4 minutes and 40 seconds duration at 65 or 68 mijares max power. In the end of the case, dopamine was administered and junctional rhythm persisted. Pacemaker function was verified pre and postprocedure. Cardiac silhouette did not change with the procedure. Sheaths were pulled in the radiographer cardiac catheterization. CONCLUSION: 1. Successful AV esvin ablation with junctional backup rhythm at the end of the case was observed. 2. Adequate Bi-V pacemaker function. PLAN: Continue routine pacemaker function and resume anticoagulation. Job ID: [id number]
--- NOTE | 2018-08-17 22:55 | EKG ---
Test Reason : PREOP Blood Pressure : / mmHG Vent. Rate : 154 BPM Atrial Rate : 163 BPM P-R Int : 000 ms QRS Dur : 068 ms QT Int : 276 ms P-R-T Axes : 000 022 229 degrees QTc Int : 442 ms Atrial fibrillation with rapid ventricular response Abnormal ECG When compared with ECG of 15-MAY-2018 05:17, Atrial fibrillation has replaced Electronic ventricular pacemaker Confirmed by BETTIE ARNETT ([id number]) on 08/17/2018 10:55:50 PM Referred By: [facility] Confirmed By:BETTIE ARNETT
--- NOTE | 2018-08-17 23:03 | EKG ---
Test Reason : POST AFIB ABLATION Blood Pressure : / mmHG Vent. Rate : 075 BPM Atrial Rate : 083 BPM P-R Int : 000 ms QRS Dur : 118 ms QT Int : 444 ms P-R-T Axes : 000 163 039 degrees QTc Int : 495 ms Electronic ventricular pacemaker When compared with ECG of 16-AUG-2018 10:59, (Unconfirmed) Electronic ventricular pacemaker has replaced Atrial fibrillation Vent. rate has decreased BY 79 BPM Confirmed by BETTIE ARNETT ([id number]) on 08/17/2018 11:03:16 PM Referred By: [facility] Confirmed By:BETTIE ARNETT
== END 2018-08-16 18:45 | disposition home or self-care (01) ==
LOC: CCL 10:04
PROVIDERS: ATTEND Internal Medicine Cardiovascular Disease
PROC: 02583ZZ Destruction of Conduction Mechanism, Percutaneous Approach (ICD-10-PCS; principal; 2018-08-16)
PROC: 02K83ZZ Map Conduction Mechanism, Percutaneous Approach (ICD-10-PCS; 2018-08-16)
PROC: 4A023FZ Measurement of Cardiac Rhythm, Percutaneous Approach (ICD-10-PCS; 2018-08-16)
PROC: 4A0234Z Measurement of Cardiac Electrical Activity, Percutaneous Approach (ICD-10-PCS; 2018-08-16)
DX: I48.2 Chronic atrial fibrillation (principal); E11.9 Type 2 diabetes mellitus without complications; F03.90 Unspecified dementia, unspecified severity, without behavioral disturbance, psychotic disturbance, mood disturbance, and anxiety; Z79.82 Long term (current) use of aspirin; Z79.84 Long term (current) use of oral hypoglycemic drugs; Z79.899 Other long term (current) drug therapy; Z95.0 Presence of cardiac pacemaker; Z91.19 Patient's noncompliance with other medical treatment and regimen
CPT/HCPCS: 36415; 76942; 80048; 85025; 85610; 85730; 93005; 93010; 93613; 93623; 93650; C1769; C2630; J1265; J1644; J2704; J3490

== ENCOUNTER 2019-07-01 08:01 | Emergency (ER) | payer MEDICARE ==
--- NOTE | 2019-07-01 08:56 | RAD ---
PORTABLE CHEST 1 VIEW: Date: 07/01/2019 Time: 0806 hours HISTORY: Dyspnea. COMPARISON: 05/14/2018. FINDINGS: The heart size is prominent but stable. Aorta is tortuous. Left-sided pacemaker device remains in gisella ce. The lungs are well expanded without lobar consolidation, pneumothoraces, zoraida pulmonary edema, o r pleural effusions. IMPRESSION: No acute process. POS: [facility]
[2019-07-01] MEDS ORDERED: Metoprolol Tartrate 50 MG TAB ONE (09:08)
[2019-07-01 09:32] LABS: #Basophils 0.2 thou/uL (0.0-0.2); #Eosinphils 0.3 thou/uL (0.0-0.7); #Lymphocytes 3.2 thou/uL (1.20-3.40); #Neutrophils 5.6 thou/uL (1.40-6.50); %Basophils 1.6 % (0.0-1.0); %Eosinophils 3.2 % (0.0-10.0); %Lymphocytes 30.8 % (21.0-51.0); %Monocytes 10.2 % (0.0-10.0); %Neutrophils 54.3 % (42.0-75.0); Hemoglobin 11.6 g/dL (12.0-16.0); Mean Corpuscular HGB CONC 32.6 g/dL (32.0-36.0); Mean Corpuscular Hemoglobin 33.1 pg (27.0-31.0); Mean Platelet Volume 7.4 fL (7.4-10.4); Platelet Count 314 thou/uL (130-400); RBC Distribution Width 13.6 % (11.5-14.5); Red Blood Cell (RBC) Count 3.51 mill/uL (4.20-5.40); White Blood Cell (WBC) Count 10.3 thou/uL (4.8-10.8)
[2019-07-01 09:57] LABS: ALT (SGPT) 9 U/L (8-55); AST (SGOT) 19 U/L (5-34); Albumin 3.5 g/dL (3.4-4.8); Alkaline Phosphatase 145 U/L (40-110); Anion Gap 13 mmol/L (10-20); BUN (Urea Nitrogen) 5 mg/dL (9.8-20.1); Bilirubin, Total 0.3 mg/dL (0.2-1.2); Calc. Creatinine Clearance 0 mL/min (70-130); Calcium 8.8 mg/dL (7.8-10.44); Carbon Dioxide 22 mmol/L (23-31); Chloride 102 mmol/L (98-107); Estimated GFR-MDRD 42; Globulin 3.8 g/dL (2.4-3.5); Glucose 156 mg/dL (80-115); Lipase 24 U/L (8-78); Potassium 4.4 mmol/L (3.5-5.1); Protein, Total 7.3 g/dL (6.0-8.3); Sodium 133 mmol/L (136-145)
== END 2019-07-01 10:58 | disposition home or self-care (01) ==
LOC: ERS 08:01
DX: I10 Essential (primary) hypertension (principal); R60.0 Localized edema; I25.10 Atherosclerotic heart disease of native coronary artery without angina pectoris; I25.2 Old myocardial infarction; I48.91 Unspecified atrial fibrillation; E11.9 Type 2 diabetes mellitus without complications; K21.9 Gastro-esophageal reflux disease without esophagitis; Z86.73 Personal history of transient ischemic attack (TIA), and cerebral infarction without residual deficits; Z79.84 Long term (current) use of oral hypoglycemic drugs; Z79.899 Other long term (current) drug therapy
CPT/HCPCS: 71045; 80053; 83690; 83880; 84484; 85025; 93005

== ENCOUNTER 2019-10-28 13:35 | Emergency (ER) | payer MEDICARE ==
[2019-10-28 14:49] LABS: Bacteria/HPF None Seen HPF (None Seen); Bilirubin Negative (Negative); Blood, Urine Negative (Negative); Clarity Clear (Clear); Glucose, Urine (Dipstick) Normal (Negative); Ketone, Urine Negative (Negative); Leukocyte Negative Leu/uL (Negative); Nitrite Negative (Negative); Protein, Urine (Dipstick) 200 mg/dL (Neg-Trace); RBC/HPF 0-3 HPF (0-3); Specific Gravity, Urine 1.009 (1.002-1.036); Squamous Epithelial 0-3 HPF (0-3); Urobilinogen Normal mg/dL (Less than 2); WBC/HPF 0-3 HPF (0-3); pH, Urine 7.5 (5.0-9.0)
== END 2019-10-28 16:02 | disposition home or self-care (01) ==
LOC: ERS 13:35
DX: M54.5 Low back pain (principal); M54.6 Pain in thoracic spine; R60.0 Localized edema; I25.10 Atherosclerotic heart disease of native coronary artery without angina pectoris; I25.2 Old myocardial infarction; I49.9 Cardiac arrhythmia, unspecified; I48.91 Unspecified atrial fibrillation; E11.9 Type 2 diabetes mellitus without complications; K21.9 Gastro-esophageal reflux disease without esophagitis; I10 Essential (primary) hypertension; Z86.73 Personal history of transient ischemic attack (TIA), and cerebral infarction without residual deficits; Z79.899 Other long term (current) drug therapy; Z79.84 Long term (current) use of oral hypoglycemic drugs
CPT/HCPCS: 81003; 81015; 99283

== ENCOUNTER 2020-09-23 05:01 | Emergency (ER) | payer MEDICARE ==
[2020-09-23 06:14] LABS: ALT (SGPT) 14 U/L (8-55); AST (SGOT) 46 U/L (5-34); Albumin 3.4 g/dL (3.4-4.8); Alkaline Phosphatase 134 U/L (40-110); Anion Gap 16 mmol/L (10-20); BUN (Urea Nitrogen) 9 mg/dL (9.8-20.1); Bilirubin, Total 0.6 mg/dL (0.2-1.2); Calc. Creatinine Clearance 0 mL/min (70-130); Calcium 9.2 mg/dL (7.8-10.44); Carbon Dioxide 24 mmol/L (23-31); Chloride 95 mmol/L (98-107); Globulin 4.9 g/dL (2.4-3.5); Glucose 128 mg/dL (80-115); Protein, Total 8.3 g/dL (5.8-8.1); Sodium 130 mmol/L (136-145)
[2020-09-23 06:20] LABS: #Basophils 0.1 thou/uL (0.0-0.2); #Eosinphils 0.1 thou/uL (0.0-0.7); #Lymphocytes 3.6 thou/uL (1.20-3.40); #Monocytes 1.2 thou/uL (0.11-0.59); #Neutrophils 9.4 thou/uL (1.40-6.50); %Lymphocytes 24.8 % (21.0-51.0); %Monocytes 8.4 % (0.0-10.0); %Neutrophils 64.9 % (42.0-75.0); Hemoglobin 10.1 g/dL (12.0-16.0); Mean Corpuscular HGB CONC 31.2 g/dL (32.0-36.0); Mean Corpuscular Hemoglobin 30.5 pg (27.0-31.0); Mean Corpuscular Volume 97.7 fL (78.0-98.0); Mean Platelet Volume 8.5 fL (7.4-10.4); Platelet Count 166 thou/uL (130-400); RBC Distribution Width 14.9 % (11.5-14.5); Red Blood Cell (RBC) Count 3.31 mill/uL (4.20-5.40); White Blood Cell (WBC) Count 14.5 thou/uL (4.8-10.8)
[2020-09-23 07:06] LABS: Bacteria/HPF None Seen HPF (None Seen); Bilirubin Negative (Negative); Blood, Urine Negative (Negative); Clarity Turbid (Clear); Glucose, Urine (Dipstick) Normal (Negative); Ketone, Urine Negative (Negative); Leukocyte 25 Leu/uL (Negative); Nitrite Negative (Negative); Protein, Urine (Dipstick) 10 mg/dL (Neg-Trace); RBC/HPF 0-3 HPF (0-3); Specific Gravity, Urine 1.013 (1.002-1.036); Urobilinogen Normal mg/dL (Less than 2); WBC/HPF 0-3 HPF (0-3); pH, Urine 5.5 (5.0-9.0)
== END 2020-09-23 07:50 | disposition home or self-care (01) ==
LOC: ERS 05:01
DX: R09.81 Nasal congestion (principal); R53.83 Other fatigue; R53.81 Other malaise; J34.89 Other specified disorders of nose and nasal sinuses; I25.10 Atherosclerotic heart disease of native coronary artery without angina pectoris; I25.2 Old myocardial infarction; I48.91 Unspecified atrial fibrillation; E11.9 Type 2 diabetes mellitus without complications; K21.9 Gastro-esophageal reflux disease without esophagitis; I10 Essential (primary) hypertension; Z79.84 Long term (current) use of oral hypoglycemic drugs; Z79.899 Other long term (current) drug therapy
CPT/HCPCS: 36415; 71045; 80053; 81003; 81015; 85025; 93005

== ENCOUNTER 2020-09-28 04:19 | Observation (INO) | payer MEDICARE ==
[2020-09-28] MEDS ORDERED: Ondansetron PF 4 MG/2 ML Vial ONE (05:00)
[2020-09-28 05:25] LABS: #Basophils 0.1 thou/uL (0.0-0.2); #Lymphocytes 2.2 thou/uL (1.20-3.40); #Monocytes 1.4 thou/uL (0.11-0.59); #Neutrophils 10.1 thou/uL (1.40-6.50); %Basophils 0.7 % (0.0-1.0); %Eosinophils 0.2 % (0.0-10.0); %Lymphocytes 15.7 % (21.0-51.0); %Neutrophils 73.3 % (42.0-75.0); Hemoglobin 11.1 g/dL (12.0-16.0); Mean Corpuscular HGB CONC 32.7 g/dL (32.0-36.0); Mean Corpuscular Hemoglobin 32.1 pg (27.0-31.0); Mean Corpuscular Volume 98.2 fL (78.0-98.0); Mean Platelet Volume 9.4 fL (7.4-10.4); Platelet Count 244 thou/uL (130-400); RBC Distribution Width 14.7 % (11.5-14.5); Red Blood Cell (RBC) Count 3.44 mill/uL (4.20-5.40); White Blood Cell (WBC) Count 13.7 thou/uL (4.8-10.8)
[2020-09-28] MEDS ORDERED: Acetaminophen 500 MG TAB ONE (05:36)
[2020-09-28 05:47] LABS: ALT (SGPT) 10 U/L (8-55); AST (SGOT) 22 U/L (5-34); Albumin 3.5 g/dL (3.4-4.8); Alkaline Phosphatase 130 U/L (40-110); Anion Gap 17 mmol/L (10-20); BUN (Urea Nitrogen) 9 mg/dL (9.8-20.1); Bilirubin, Total 0.6 mg/dL (0.2-1.2); Calc. Creatinine Clearance 0 mL/min (70-130); Calcium 8.5 mg/dL (7.8-10.44); Carbon Dioxide 23 mmol/L (23-31); Chloride 95 mmol/L (98-107); Glucose 207 mg/dL (80-115); Protein, Total 7.5 g/dL (5.8-8.1); Sodium 131 mmol/L (136-145)
[2020-09-28 06:00] LABS: Digoxin 0.56 ng/mL (0.8-2.0)
[2020-09-28] MEDS ORDERED: Aspirin Chewable 81 MG TAB ONE (06:01)
[2020-09-28 06:09] LABS: CKMB 0.4 ng/mL (0-6.6)
[2020-09-28 06:55] LABS: Bilirubin Negative (Negative); Blood, Urine Negative (Negative); Clarity Turbid (Clear); Glucose, Urine (Dipstick) Normal (Negative); Ketone, Urine Negative (Negative); Leukocyte 25 Leu/uL (Negative); Nitrite Negative (Negative); Protein, Urine (Dipstick) Negative (Neg-Trace); RBC/HPF 0-3 HPF (0-3); Specific Gravity, Urine 1.011 (1.002-1.036); Squamous Epithelial 0-3 HPF (0-3); Urobilinogen Normal mg/dL (Less than 2); WBC/HPF 0-3 HPF (0-3); pH, Urine 5.5 (5.0-9.0)
[2020-09-28] MEDS ORDERED: Ondansetron ODT 4 MG TAB PO PRN (06:58)
[2020-09-28 07:00] LABS: Bacteria/HPF 1+ HPF (None Seen)
[2020-09-28] MEDS ORDERED: Dextrose 5% in Water 1,000 ML IV PRN (07:02)
[2020-09-28] MEDS ORDERED: HumaLOG 300 UNITS/3 ML VIAL SC PRN ×2 (07:02)
[2020-09-28] MEDS ORDERED: Dextrose 50% Abboject 50 ML SYRINGE SLOW IVP PRN (07:02)
[2020-09-28] MEDS ORDERED: Lactated Ringer's 1,000 ML IV SCH (07:15)
[2020-09-28] MEDS: Enoxaparin Sodium 40 MG/0.4 ML SYRINGE SC SCH (09:40)
[2020-09-28 09:49] LABS: Hemoglobin A1c 5.1 % (4.0-6.0)
[2020-09-28 10:07] LABS: Troponin I 0.086 ng/mL (< 0.028)
[2020-09-28 10:28] LABS: Iron 33 ug/dL (50-170); Iron Binding Capacity, Total 158 mcg/dL (265-497)
[2020-09-28 11:23] LABS: Troponin I 0.137 ng/mL (< 0.028)
[2020-09-28] MEDS ORDERED: Digoxin 0.125 MG TAB PO SCH (12:45)
[2020-09-28 13:51] LABS: CKMB 0.6 ng/mL (0-6.6)
[2020-09-28 16:54] LABS: SARS-CoV-2 PCR by NAA Not Detected (NotDetected)
[2020-09-28] MEDS ORDERED: metFORMIN 500 MG TAB PO SCH (17:00)
[2020-09-28 18:37] LABS: Ferritin 326.41 ng/mL (10-291)
[2020-09-28] MEDS: Acetaminophen 325 MG TAB PO PRN (20:16)
[2020-09-29] MEDS: Acetaminophen 325 MG TAB PO PRN (02:42)
[2020-09-29] MEDS ORDERED: Calcium Carbonate 500 MG ChewTAB PO PRN (04:11)
[2020-09-29] MEDS ORDERED: Cyclobenzaprine 10 MG TAB PO SCH (04:15)
[2020-09-29 05:06] LABS: #Basophils 0.1 thou/uL (0.0-0.2); #Eosinphils 0.2 thou/uL (0.0-0.7); #Lymphocytes 3.2 thou/uL (1.20-3.40); #Monocytes 1.1 thou/uL (0.11-0.59); %Basophils 1.2 % (0.0-1.0); %Eosinophils 1.8 % (0.0-10.0); %Lymphocytes 27.5 % (21.0-51.0); %Monocytes 9.4 % (0.0-10.0); %Neutrophils 60.2 % (42.0-75.0); Hemoglobin 9.5 g/dL (12.0-16.0); Mean Corpuscular HGB CONC 32.3 g/dL (32.0-36.0); Mean Corpuscular Hemoglobin 31.4 pg (27.0-31.0); Mean Corpuscular Volume 97.1 fL (78.0-98.0); Mean Platelet Volume 8.9 fL (7.4-10.4); Platelet Count 220 thou/uL (130-400); RBC Distribution Width 14.8 % (11.5-14.5); Red Blood Cell (RBC) Count 3.03 mill/uL (4.20-5.40); White Blood Cell (WBC) Count 11.6 thou/uL (4.8-10.8)
[2020-09-29 05:35] LABS: ALT (SGPT) 7 U/L (8-55); AST (SGOT) 19 U/L (5-34); Albumin 2.8 g/dL (3.4-4.8); Alkaline Phosphatase 104 U/L (40-110); Anion Gap 14 mmol/L (10-20); BUN (Urea Nitrogen) 7 mg/dL (9.8-20.1); Bilirubin, Total 0.5 mg/dL (0.2-1.2); Calc. Creatinine Clearance 34 mL/min (70-130); Calcium 7.6 mg/dL (7.8-10.44); Carbon Dioxide 23 mmol/L (23-31); Chloride 98 mmol/L (98-107); Globulin 3.6 g/dL (2.4-3.5); Glucose 94 mg/dL (80-115); Potassium 3.8 mmol/L (3.5-5.1); Protein, Total 6.4 g/dL (5.8-8.1); Sodium 131 mmol/L (136-145)
[2020-09-29] MEDS: Enoxaparin Sodium 40 MG/0.4 ML SYRINGE SC SCH ×2 (08:21→09:03)
[2020-09-29] MEDS: Digoxin 0.125 MG TAB PO SCH (08:21)
[2020-09-29] MEDS: Furosemide 40 MG TAB PO SCH (08:22)
[2020-09-29] MEDS: Cyanocobalamin (Vitamin B-12) 1,000 MCG TAB PO SCH (08:22)
[2020-09-29] MEDS: Aspirin 81 mg Enteric Coated Tablet PO SCH (08:22)
[2020-09-29] MEDS: Folic Acid 1 MG TAB PO SCH (08:22)
[2020-09-29 11:47] VITALS: BMI 21.4
[2020-09-29 14:37] LABS: Hematocrit 28.5 % (34.0-46.6); RBC Folate Test Component 684 ng/mL (>498)
[2020-09-29] MEDS ORDERED: hydrALAZINE 20 MG/ML VIAL SLOW IVP PRN (17:24)
[2020-09-30 05:34] LABS: ALT (SGPT) 9 U/L (8-55); AST (SGOT) 26 U/L (5-34); Alkaline Phosphatase 119 U/L (40-110); Anion Gap 14 mmol/L (10-20); BUN (Urea Nitrogen) 5 mg/dL (9.8-20.1); Bilirubin, Total 0.6 mg/dL (0.2-1.2); Calc. Creatinine Clearance 47 mL/min (70-130); Calcium 7.9 mg/dL (7.8-10.44); Carbon Dioxide 24 mmol/L (23-31); Chloride 99 mmol/L (98-107); Globulin 3.9 g/dL (2.4-3.5); Glucose 81 mg/dL (80-115); Potassium 4.1 mmol/L (3.5-5.1); Protein, Total 6.9 g/dL (5.8-8.1); Sodium 133 mmol/L (136-145)
[2020-09-30] MEDS: Aspirin 81 mg Enteric Coated Tablet PO SCH (09:34)
[2020-09-30] MEDS: Furosemide 40 MG TAB PO SCH (09:34)
[2020-09-30] MEDS: Folic Acid 1 MG TAB PO SCH (09:34)
[2020-09-30] MEDS: Digoxin 0.125 MG TAB PO SCH (09:34)
[2020-09-30] MEDS: Cyanocobalamin (Vitamin B-12) 1,000 MCG TAB PO SCH (09:35)
[2020-09-30] MEDS: Enoxaparin Sodium 40 MG/0.4 ML SYRINGE SC SCH (09:35)
[2020-09-30 11:55] VITALS: BP 139/71; TEMP 98.1
== END 2020-09-30 13:20 ==
LOC: ERS 04:19 → 2SW 06:13
PROVIDERS: ADMIT Internal Medicine; ATTEND Internal Medicine
DX: R55 Syncope and collapse (principal); R42 Dizziness and giddiness; M25.751 Osteophyte, right hip; M24.151 Other articular cartilage disorders, right hip; R77.8 Other specified abnormalities of plasma proteins; N39.0 Urinary tract infection, site not specified; R47.1 Dysarthria and anarthria; G31.84 Mild cognitive impairment of uncertain or unknown etiology; E87.1 Hypo-osmolality and hyponatremia; E87.8 Other disorders of electrolyte and fluid balance, not elsewhere classified; I11.0 Hypertensive heart disease with heart failure; I50.30 Unspecified diastolic (congestive) heart failure; E78.5 Hyperlipidemia, unspecified; D64.9 Anemia, unspecified; I25.2 Old myocardial infarction; I48.91 Unspecified atrial fibrillation; E11.9 Type 2 diabetes mellitus without complications; Z79.82 Long term (current) use of aspirin; Z79.84 Long term (current) use of oral hypoglycemic drugs; Z79.899 Other long term (current) drug therapy; Z20.822 Contact with and (suspected) exposure to COVID-19; Z91.81 History of falling; W18.30XA Fall on same level, unspecified, initial encounter
CPT/HCPCS: 51701; 70450; 71046; 72170; 73502; 80053 ×2; 80061; 80162; 82553; 82607; 82728; 82747; 82962 ×3; 83036; 83540; 83550; 84484 ×2; 85014; 85025; 87086; 93005; 93306; 96372; 96374; 96375; 97110; 97116 ×2; 97139 ×3; 97530; 97535; 99285; G0378 ×4; U0003; U0005; 36415; 36416; 81003; 81015; 84443; J0360; J1650; J2405

== ENCOUNTER 2020-11-14 04:44 | Emergency (ER) | payer MEDICARE ==
[2020-11-14] MEDS ORDERED: Meclizine HCl 25 MG TAB ONE (05:51)
[2020-11-14] MEDS ORDERED: Acetaminophen 500 MG TAB ONE (05:51)
== END 2020-11-14 06:39 | disposition home or self-care (01) ==
LOC: ERS 04:44
DX: M79.671 Pain in right foot (principal); M79.672 Pain in left foot; R49.0 Dysphonia; R09.81 Nasal congestion; E11.9 Type 2 diabetes mellitus without complications; I10 Essential (primary) hypertension; I48.91 Unspecified atrial fibrillation
CPT/HCPCS: 71045; 93005

== ENCOUNTER 2020-11-23 13:51 | Inpatient (IN) | payer MEDICARE ==
[~2020-11-23 13:51] MED LIST: Iopamidol-370 76% 500 ML 1 ML ONE
[2020-11-23 14:33] LABS: Mean Corpuscular HGB CONC 32.2 g/dL (32.0-36.0); Mean Corpuscular Volume 93.1 fL (78.0-98.0); Mean Platelet Volume 9.3 fL (7.4-10.4); Platelet Count 291 thou/uL (130-400); RBC Distribution Width 12.7 % (11.5-14.5); Red Blood Cell (RBC) Count 4.02 mill/uL (4.20-5.40); White Blood Cell (WBC) Count 18.4 thou/uL (4.8-10.8)
[2020-11-23] MEDS ORDERED: niCARdipine 20MG In NaCl 20 MG/200 ML BAG ONE (14:35)
[2020-11-23 14:46] LABS: ALT (SGPT) Less than 7 U/L (8-55); AST (SGOT) 14 U/L (5-34); Acetaminophen Less than 6.0 mcg/mL (10.0-30.0); Albumin 3.1 g/dL (3.4-4.8); Alcohol Less than 10 mg/dL (Less than 10); Alkaline Phosphatase 101 U/L (40-110); Anion Gap 15 mmol/L (10-20); BUN (Urea Nitrogen) 21 mg/dL (9.8-20.1); Bilirubin, Total 0.5 mg/dL (0.2-1.2); CK (CPK) 22 U/L (29-168); Calc. Creatinine Clearance 0 mL/min (70-130); Carbon Dioxide 25 mmol/L (23-31); Chloride 96 mmol/L (98-107); Globulin 4.7 g/dL (2.4-3.5); Glucose 141 mg/dL (80-115); Lipase 25 U/L (8-78); Potassium 4.1 mmol/L (3.5-5.1); Protein, Total 7.8 g/dL (5.8-8.1); Salicylate Less than 8.0 mg/dL (15.0-30.0); Sodium 132 mmol/L (136-145)
[2020-11-23 14:53] LABS: Band 12 % (5-11); Lymphocytes 10 % (21-51); MDiff Complete? YES; Monocytes 4 % (0-10); Neutrophil 71 % (42-75); Platelet Morphology Comment Appears Adequate; Reactive Lymphocytes 3 % (0-10); Target Cells SLIGHT = 2-5 cells (100X) (0-1/hpf)
[2020-11-23] MEDS ORDERED: Fentanyl 100 MCG/2 ML VIAL ONE (15:06)
[2020-11-23 15:11] LABS: Bilirubin Negative (Negative); Blood, Urine Negative (Negative); Clarity Clear (Clear); Glucose, Urine (Dipstick) Normal (Negative); Ketone, Urine 10 mg/dL (Negative); Leukocyte Negative Leu/uL (Negative); Nitrite Negative (Negative); Protein, Urine (Dipstick) 10 mg/dL (Neg-Trace); Specific Gravity, Urine 1.031 (1.002-1.036); Urobilinogen Normal mg/dL (Less than 2)
[2020-11-23] MEDS ORDERED: SUGAMMADEX SODIUM 200 MG/2 ML VIAL ONE (15:13)
[2020-11-23 15:20] LABS: Amphetamine Not Detected (NotDetected); Barbiturates Screen Not Detected (NotDetected); Benzodiazepine Screen Not Detected (NotDetected); Cocaine Metabolite Screen Not Detected (NotDetected); Methadone Not Detected (NotDetected); Methamphetamine Not Detected (NotDetected); Opiate Screen Not Detected (NotDetected); Oxycodone Screen Not Detected (NotDetected); Phencyclidine (PCP) Not Detected (NotDetected); THC/Cannabinoid Screen Not Detected (NotDetected); Tricyclic Screen Not Detected (NotDetected)
[2020-11-23] MEDS ORDERED: Rocuronium Bromide 10 MG/ML (10ML VIAL) ONE (15:20)
[2020-11-23] MEDS ORDERED: PHENYLEPHRINE-NS 100 MCG/ML 10 ML SYRINGE ONE (15:20)
[2020-11-23] MEDS ORDERED: PROPOFOL 200 MG/20 ML VIAL ONE (15:20)
[2020-11-23 15:26] LABS: CKMB 0.6 ng/mL (0-6.6)
[2020-11-23] MEDS ORDERED: Phenylephrine 10 MG/ML VIAL ONE (15:33)
[2020-11-23] MEDS ORDERED: Midazolam HCl 2 mg/2 ml Vial ONE (15:43)
[2020-11-23] MEDS ORDERED: Communication Order-Pharmacy FS SCH (15:44)
[2020-11-23] MEDS ORDERED: niCARdipine 25 MG in Sodium Chloride 0.9% 250 ML 240 ML IVPB PRN (15:44)
[2020-11-23 15:51] LABS: SARS-CoV-2 NAA Rapid Test Not Detected (NotDetected)
[2020-11-23 15:57] LABS: INR-International Normal Ratio 1.2; Prothrombin Time 15.5 sec (12.0-14.7)
[2020-11-23 15:58] LABS: PTT 39.3 sec (22.9-36.1)
[2020-11-23] MEDS ORDERED: Propofol 1,000 MG/100 ML VIAL IV ONE (16:04)
[2020-11-23] MEDS ORDERED: PROPOFOL 20 ML ONE (16:05)
[2020-11-23] MEDS ORDERED: Electrolyte Replacement Protocol 1 EACH FS ONE (16:08)
[2020-11-23] MEDS ORDERED: Ventilator Sedation Protocol 1 EACH FS ONE (16:08)
[2020-11-23] MEDS ORDERED: Promethazine HCl 25 MG/ML VIAL IVPB PRN (16:14)
[2020-11-23] MEDS ORDERED: Promethazine HCl 25 MG/ML VIAL IM PRN (16:14)
[2020-11-23] MEDS ORDERED: Dextrose 50% Abboject 50 ML SYRINGE SLOW IVP PRN (16:14)
[2020-11-23] MEDS ORDERED: Ondansetron HCl/PF 4 MG/2 ML Vial IVP PRN (16:14)
[2020-11-23] MEDS ORDERED: Dextrose 5% in Water 1,000 ML IV PRN (16:14)
[2020-11-23] MEDS ORDERED: Electrolyte Replacement Protocol FS PRN (16:15)
[2020-11-23] MEDS ORDERED: Propofol 1,000 MG/100 ML VIAL IV PRN (16:15)
[2020-11-23] MEDS ORDERED: Propofol BOLUS 1,000 MG/100 ML VIAL IV PRN (16:15)
[2020-11-23] MEDS ORDERED: DISCONTINUE PREVIOUS NARCOTIC PAIN MEDICATIONS AND BENZODIAZEPINES FS SCH (16:15)
[2020-11-23] MEDS ORDERED: Fentanyl CADD 100 ML IV SCH (16:15)
[2020-11-23] MEDS ORDERED: Lorazepam 2 MG/ML VIAL SLOW IVP PRN (16:15)
[2020-11-23] MEDS ORDERED: Fentanyl BOLUS 250 ML IVPB PRN (16:15)
[2020-11-23] MEDS ORDERED: Morphine 2 MG/ML VIAL SLOW IVP PRN (16:15)
[2020-11-23 16:37] LABS: Actual Bicarbonate (HCO3a) 13.1 mEq/L (22-28); Base Excess (BEa) -7.1 mEq/L (-2.0 to +3.0); Carboxyhemoglobin (COHb) 0.3 gm% (0.0-3.0); Hemoglobin (Hb) 10.1 g/dL (12.0-16.0); O2 Tension (PaO2), arterial 221.9 mmHg (> 80.0); Potassium - ABG Lab 2.86 mmol/L (3.70-5.30)
[2020-11-23 16:45] LABS: ALV-art Gradient 44.175 mmHg (0-20); CO2 Tension 15.3 mmHg (35.0-45.0); Puncture Site Arterial Line; pH, Arterial 7.55 (7.35-7.45)
[2020-11-23] MEDS: Sodium Chloride 0.9% 1,000 ML IV SCH (18:00)
[2020-11-23] MEDS ORDERED: niCARdipine 25 MG in Sodium Chloride 0.9% 250 ML 240 ML IVPB SCH (18:00)
[2020-11-23] MEDS: Atorvastatin Calcium 40 MG TAB PO SCH (22:26)
[2020-11-24] MEDS: HumaLOG 300 UNITS/3 ML VIAL SC PRN (01:40)
[2020-11-24 07:25] LABS: Base Excess (BEa) -6.6 mEq/L (-2.0 to +3.0); Calcium, Ionized (arterial) 1.08 mmol/L (1.12-1.30); Carboxyhemoglobin (COHb) 0.5 gm% (0.0-3.0); Hemoglobin (Hb) 12.8 g/dL (12.0-16.0); O2 Tension (PaO2), arterial 184.1 mmHg (> 80.0); Potassium - ABG Lab 3.05 mmol/L (3.70-5.30); pH, Arterial 7.51 (7.35-7.45)
[2020-11-24 07:44] LABS: ALV-art Gradient 78.475 mmHg (0-20); CO2 Tension 18.1 mmHg (35.0-45.0); Puncture Site Arterial Line
[2020-11-24 08:21] LABS: Albumin 2.7 g/dL (3.4-4.8); Anion Gap 17 mmol/L (10-20); BUN (Urea Nitrogen) 20 mg/dL (9.8-20.1); BUN (Urea Nitrogen) 22 mg/dL (9.8-20.1); Calc. Creatinine Clearance 26 mL/min (70-130); Calcium 8.1 mg/dL (7.8-10.44); Carbon Dioxide 15 mmol/L (23-31); Cardiac Risk 3.1 (Less than 4.5); Chloride 109 mmol/L (98-107); Chloride 110 mmol/L (98-107); Cholesterol 111 mg/dl (< 200 Desired); Glucose 134 mg/dL (80-115); Glucose 135 mg/dL (80-115); HDL Cholesterol 36 mg/dL (>60 Neg Risk); LDL Cholesterol, Calculated 55 mg/dL; Sodium 138 mmol/L (136-145); Sodium 139 mmol/L (136-145); Triglycerides 102 mg/dL (Less than 150)
[2020-11-24 08:23] LABS: Phosphorus 1.6 mg/dL (2.3-4.7)
[2020-11-24] MEDS ORDERED: DC Sedation Protocol FS ONE (08:31)
[2020-11-24 09:16] LABS: Band 11 % (5-11); Hemoglobin 10.2 g/dL (12.0-16.0); Lymphocytes 5 % (21-51); MDiff Complete? YES; Mean Corpuscular HGB CONC 32.1 g/dL (32.0-36.0); Mean Corpuscular Hemoglobin 29.5 pg (27.0-31.0); Mean Corpuscular Volume 91.8 fL (78.0-98.0); Mean Platelet Volume 9.4 fL (7.4-10.4); Monocytes 4 % (0-10); Neutrophil 80 % (42-75); Platelet Count 252 thou/uL (130-400); RBC Distribution Width 12.9 % (11.5-14.5); Red Blood Cell (RBC) Count 3.45 mill/uL (4.20-5.40); White Blood Cell (WBC) Count 28.4 thou/uL (4.8-10.8)
[2020-11-24] MEDS: Sodium Chloride 0.9% 1,000 ML IV SCH ×2 (09:54→17:09)
[2020-11-24] MEDS: Pantoprazole 40 MG VIAL IVP SCH (09:56)
[2020-11-24] MEDS ORDERED: Potassium Phosphate 15 MMOL in Sodium Chloride 0.9% 100 ML IVPB SCH (10:45)
[2020-11-24] MEDS ORDERED: Potassium Chloride 20 MEQ in Premix Bag 1 BAG IVPB SCH (10:45)
[2020-11-24] MEDS: Atorvastatin Calcium 40 MG TAB PO SCH (20:43)
[2020-11-24] MEDS: Enoxaparin Sodium 30 MG/0.3 ML SYRINGE SC SCH (20:44)
[2020-11-24] MEDS ORDERED: Aspirin 325 mg Enteric Coated Tablet PO SCH (21:00)
[2020-11-24] MEDS ORDERED: Aspirin 300 MG Suppository PR SCH ×2 (21:00)
[2020-11-24] MEDS ORDERED: Aspirin 81 mg Enteric Coated Tablet PO SCH (21:00)
[2020-11-25] MEDS: Sodium Chloride 0.9% 1,000 ML IV SCH ×2 (03:37→13:39)
[2020-11-25 04:41] LABS: Band 11 % (5-11); Hemoglobin 9.3 g/dL (12.0-16.0); Lymphocytes 10 % (21-51); MDiff Complete? YES; Mean Corpuscular HGB CONC 32.3 g/dL (32.0-36.0); Mean Corpuscular Hemoglobin 30.1 pg (27.0-31.0); Mean Corpuscular Volume 93.2 fL (78.0-98.0); Mean Platelet Volume 9.3 fL (7.4-10.4); Monocytes 4 % (0-10); Neutrophil 75 % (42-75); Platelet Count 208 thou/uL (130-400); RBC Distribution Width 12.9 % (11.5-14.5); White Blood Cell (WBC) Count 31.4 thou/uL (4.8-10.8)
[2020-11-25] MEDS: Pantoprazole 40 MG VIAL IVP SCH (08:00)
[2020-11-25] MEDS ORDERED: cefTRIAXone\\ROCEPHIN 2 GM in Sodium Chloride 0.9% 100 ML IVPB SCH (09:00)
[2020-11-25] MEDS: hydrALAZINE 20 MG/ML VIAL SLOW IVP PRN ×2 (11:17→21:08)
[2020-11-25 11:34] LABS: Anion Gap 15 mmol/L (10-20); BUN (Urea Nitrogen) 15 mg/dL (9.8-20.1); Calc. Creatinine Clearance 29 mL/min (70-130); Calcium 7.8 mg/dL (7.8-10.44); Carbon Dioxide 15 mmol/L (23-31); Chloride 117 mmol/L (98-107); Glucose 103 mg/dL (80-115); Magnesium 1.2 mg/dL (1.6-2.6); Potassium 3.9 mmol/L (3.5-5.1); Sodium 143 mmol/L (136-145)
[2020-11-25] MEDS ORDERED: Magnesium Sulfate 4 GM in Sodium Chloride 0.9% 250 ML 250 ML IVPB SCH (12:45)
[2020-11-25] MEDS ORDERED: Magnesium Sulfate 2 GM in Sodium Chloride 0.9% 100 ML IVPB SCH (13:00)
[2020-11-25] MEDS: Atorvastatin Calcium 40 MG TAB PO SCH (19:30)
[2020-11-25] MEDS: Enoxaparin Sodium 30 MG/0.3 ML SYRINGE SC SCH (21:03)
[2020-11-26] MEDS: Sodium Chloride 0.9% 1,000 ML IV SCH ×3 (04:00→20:53)
[2020-11-26] MEDS: hydrALAZINE 20 MG/ML VIAL SLOW IVP PRN ×3 (05:02→16:22)
[2020-11-26 05:22] LABS: Hemoglobin 9.1 g/dL (12.0-16.0); Mean Corpuscular HGB CONC 31.9 g/dL (32.0-36.0); Mean Corpuscular Hemoglobin 29.1 pg (27.0-31.0); Mean Corpuscular Volume 91.4 fL (78.0-98.0); Mean Platelet Volume 9.4 fL (7.4-10.4); Platelet Count 219 thou/uL (130-400); Red Blood Cell (RBC) Count 3.13 mill/uL (4.20-5.40); White Blood Cell (WBC) Count 18.9 thou/uL (4.8-10.8)
[2020-11-26 05:41] LABS: Anion Gap 13 mmol/L (10-20); BUN (Urea Nitrogen) 11 mg/dL (9.8-20.1); Calc. Creatinine Clearance 39 mL/min (70-130); Calcium 7.8 mg/dL (7.8-10.44); Carbon Dioxide 15 mmol/L (23-31); Chloride 120 mmol/L (98-107); Glucose 99 mg/dL (80-115); Magnesium 2.2 mg/dL (1.6-2.6); Potassium 3.8 mmol/L (3.5-5.1); Sodium 144 mmol/L (136-145)
[2020-11-26 05:48] LABS: Band 2 % (5-11); Lymphocytes 8 % (21-51); MDiff Complete? YES; Monocytes 4 % (0-10); Neutrophil 86 % (42-75)
[2020-11-26] MEDS ORDERED: Meropenem 1 GM in Sodium Chloride 0.9% 100 ML IVPB SCH (08:03)
[2020-11-26] MEDS: Pantoprazole 40 MG VIAL IVP SCH (08:24)
[2020-11-26] MEDS ORDERED: MEROPENEM 1 GM/50 ML 1 GM in Premix Bag 1 BAG IVPB SCH (09:00)
[2020-11-26] MEDS: NIFEdipine XL 30 MG TAB PO SCH (12:30)
[2020-11-26] MEDS: Aspirin 81 mg Enteric Coated Tablet PO SCH (12:31)
[2020-11-26] MEDS: Clopidogrel Bisulfate 75 MG TAB PO SCH (12:31)
[2020-11-26] MEDS: Enoxaparin Sodium 30 MG/0.3 ML SYRINGE SC SCH (20:54)
[2020-11-26] MEDS: MEROPENEM 1 GM/50 ML 1 GM in Premix Bag 1 BAG IVPB SCH (20:54)
[2020-11-26] MEDS: Atorvastatin Calcium 40 MG TAB PO SCH (20:55)
[2020-11-27] MEDS: hydrALAZINE 20 MG/ML VIAL SLOW IVP PRN ×4 (03:08→23:26)
[2020-11-27] MEDS: Sodium Chloride 0.9% 1,000 ML IV SCH ×3 (05:11→23:21)
[2020-11-27 08:36] LABS: Hemoglobin 9.4 g/dL (12.0-16.0); Mean Corpuscular HGB CONC 31.5 g/dL (32.0-36.0); Mean Corpuscular Hemoglobin 29.1 pg (27.0-31.0); Mean Corpuscular Volume 92.2 fL (78.0-98.0); Mean Platelet Volume 9.3 fL (7.4-10.4); Platelet Count 223 thou/uL (130-400); Red Blood Cell (RBC) Count 3.25 mill/uL (4.20-5.40); White Blood Cell (WBC) Count 24.2 thou/uL (4.8-10.8)
[2020-11-27 09:09] LABS: Band 5 % (5-11); Eosinophils 1 % (0-10); Hypochromia SLIGHT = 6-15 cells (100X) (0-5/hpf); Lymphocytes 5 % (21-51); MDiff Complete? YES; Monocytes 3 % (0-10); Myelocyte 1 % (0-0); Neutrophil 85 % (42-75); Platelet Morphology Comment Appears Adequate; Polychromasia SLIGHT = 2-3 cells (100X) (0-2/hpf)
[2020-11-27] MEDS: Aspirin 81 mg Enteric Coated Tablet PO SCH (09:18)
[2020-11-27] MEDS: Clopidogrel Bisulfate 75 MG TAB PO SCH (09:19)
[2020-11-27] MEDS: NIFEdipine XL 30 MG TAB PO SCH (09:19)
[2020-11-27] MEDS: Pantoprazole 40 MG VIAL IVP SCH (09:21)
[2020-11-27] MEDS: MEROPENEM 1 GM/50 ML 1 GM in Premix Bag 1 BAG IVPB SCH ×2 (09:42→22:17)
[2020-11-27] MEDS: Labetalol HCl 100 MG/20 ML VIAL SLOW IVP PRN ×2 (13:12→16:44)
[2020-11-27 13:42] LABS: Anion Gap 14 mmol/L (10-20); BUN (Urea Nitrogen) 11 mg/dL (9.8-20.1); Calc. Creatinine Clearance 40 mL/min (70-130); Calcium 8.5 mg/dL (7.8-10.44); Carbon Dioxide 12 mmol/L (23-31); Chloride 122 mmol/L (98-107); Glucose 126 mg/dL (80-115); Potassium 3.4 mmol/L (3.5-5.1); Sodium 145 mmol/L (136-145)
[2020-11-27] MEDS ORDERED: Potassium Chloride 20 MEQ TAB PO SCH (13:45)
[2020-11-27] MEDS ORDERED: Potassium Chloride 40 MEQ in Sodium Chloride 0.9% 250 ML 250 ML IVPB SCH (15:00)
[2020-11-27] MEDS ORDERED: Iopamidol 370 76% 100 ML VIAL ONE (16:23)
[2020-11-27] MEDS ORDERED: HYDROmorphone 0.5 MG/0.5 ML SYRINGE SLOW IVP SCH (18:45)
[2020-11-27] MEDS: Atorvastatin Calcium 40 MG TAB PO SCH (22:14)
[2020-11-27] MEDS: Enoxaparin Sodium 30 MG/0.3 ML SYRINGE SC SCH (22:23)
[2020-11-28] MEDS: Labetalol HCl 100 MG/20 ML VIAL SLOW IVP PRN ×4 (02:46→10:44)
[2020-11-28] MEDS: hydrALAZINE 20 MG/ML VIAL SLOW IVP PRN ×2 (03:54→11:37)
[2020-11-28 08:23] LABS: #Basophils 0.1 thou/uL (0.0-0.2); #Eosinphils 0.1 thou/uL (0.0-0.7); #Lymphocytes 1.9 thou/uL (1.20-3.40); #Monocytes 1.4 thou/uL (0.11-0.59); #Neutrophils 13.4 thou/uL (1.40-6.50); %Basophils 0.3 % (0.0-1.0); %Eosinophils 0.6 % (0.0-10.0); %Lymphocytes 11.3 % (21.0-51.0); %Monocytes 8.2 % (0.0-10.0); %Neutrophils 79.6 % (42.0-75.0); Hemoglobin 9.1 g/dL (12.0-16.0); Mean Corpuscular Hemoglobin 28.7 pg (27.0-31.0); Mean Corpuscular Volume 92.6 fL (78.0-98.0); Mean Platelet Volume 8.8 fL (7.4-10.4); Platelet Count 228 thou/uL (130-400); Red Blood Cell (RBC) Count 3.17 mill/uL (4.20-5.40); White Blood Cell (WBC) Count 16.8 thou/uL (4.8-10.8)
[2020-11-28 08:43] LABS: Anion Gap 13 mmol/L (10-20); BUN (Urea Nitrogen) 11 mg/dL (9.8-20.1); Calc. Creatinine Clearance 42 mL/min (70-130); Calcium 8.5 mg/dL (7.8-10.44); Carbon Dioxide 14 mmol/L (23-31); Glucose 124 mg/dL (80-115); Potassium 3.9 mmol/L (3.5-5.1); Sodium 149 mmol/L (136-145)
[2020-11-28 08:56] LABS: Chloride 126 mmol/L (98-107)
[2020-11-28 09:39] LABS: Magnesium 1.6 mg/dL (1.6-2.6)
[2020-11-28] MEDS ORDERED: Magnesium 2 GM/50 ML 2 GM in Premix Bag 1 BAG IVPB SCH (09:45)
[2020-11-28] MEDS: Pantoprazole 40 MG VIAL IVP SCH (10:06)
[2020-11-28] MEDS: NIFEdipine XL 30 MG TAB PO SCH (10:07)
[2020-11-28] MEDS: Dextrose 5 %-0.45 % NaCl 1,000 ML IV SCH ×2 (10:08→21:43)
[2020-11-28] MEDS ORDERED: Fentanyl 100 MCG/2 ML VIAL ONE ×2 (11:55→13:47)
[2020-11-28] MEDS ORDERED: Lidocaine 1% PF 5 ML VIAL ONE (14:10)
[2020-11-28] MEDS ORDERED: PROPOFOL 200 MG/20 ML VIAL ONE (14:10)
[2020-11-28] MEDS ORDERED: Ondansetron HCl/PF 4 MG/2 ML Vial IVP PRN (15:02)
[2020-11-28] MEDS ORDERED: Promethazine HCl 25 MG/ML VIAL IVPB PRN (15:02)
[2020-11-28] MEDS ORDERED: Promethazine HCl 25 MG/ML VIAL IM PRN (15:02)
[2020-11-28] MEDS: MEROPENEM 1 GM/50 ML 1 GM in Premix Bag 1 BAG IVPB SCH ×2 (16:14→16:17)
[2020-11-28] MEDS: Atorvastatin Calcium 40 MG TAB PO SCH (21:43)
[2020-11-28] MEDS: Enoxaparin Sodium 30 MG/0.3 ML SYRINGE SC SCH (21:43)
[2020-11-29] MEDS: Dextrose 5 %-0.45 % NaCl 1,000 ML IV SCH (05:05)
[2020-11-29] MEDS: MEROPENEM 1 GM/50 ML 1 GM in Premix Bag 1 BAG IVPB SCH ×2 (05:05→17:16)
[2020-11-29 05:43] LABS: Hemoglobin 9.3 g/dL (12.0-16.0); Mean Corpuscular HGB CONC 31.8 g/dL (32.0-36.0); Mean Corpuscular Hemoglobin 29.5 pg (27.0-31.0); Mean Corpuscular Volume 92.7 fL (78.0-98.0); Mean Platelet Volume 9.1 fL (7.4-10.4); Platelet Count 208 thou/uL (130-400); RBC Distribution Width 13.1 % (11.5-14.5); Red Blood Cell (RBC) Count 3.16 mill/uL (4.20-5.40)
[2020-11-29 05:58] LABS: Anion Gap 12 mmol/L (10-20); BUN (Urea Nitrogen) 11 mg/dL (9.8-20.1); Calc. Creatinine Clearance 36 mL/min (70-130); Calcium 8.3 mg/dL (7.8-10.44); Carbon Dioxide 15 mmol/L (23-31); Chloride 122 mmol/L (98-107); Glucose 213 mg/dL (80-115); Magnesium 2.1 mg/dL (1.6-2.6); Potassium 3.8 mmol/L (3.5-5.1); Sodium 145 mmol/L (136-145)
[2020-11-29] MEDS: HumaLOG 300 UNITS/3 ML VIAL SC PRN ×2 (06:08→17:52)
[2020-11-29 08:50] LABS: Band 3 % (5-11); Eosinophils 1 % (0-10); Lymphocytes 12 % (21-51); MDiff Complete? YES; Monocytes 4 % (0-10); Neutrophil 80 % (42-75); Platelet Morphology Comment Appears Adequate; RBC Morphology Normal
[2020-11-29] MEDS: NIFEdipine XL 30 MG TAB PO SCH (10:37)
[2020-11-29] MEDS: Pantoprazole 40 MG VIAL IVP SCH (10:37)
[2020-11-29] MEDS: Lactated Ringer's 1,000 ML IV SCH (13:40)
[2020-11-29] MEDS: Enoxaparin Sodium 30 MG/0.3 ML SYRINGE SC SCH (20:05)
[2020-11-29] MEDS: Atorvastatin Calcium 40 MG TAB PO SCH (20:05)
[2020-11-30] MEDS: Lactated Ringer's 1,000 ML IV SCH ×3 (02:09→15:31)
[2020-11-30 02:36] LABS: #Basophils 0.1 thou/uL (0.0-0.2); #Eosinphils 0.3 thou/uL (0.0-0.7); #Lymphocytes 3.1 thou/uL (1.20-3.40); #Monocytes 1.7 thou/uL (0.11-0.59); #Neutrophils 13.7 thou/uL (1.40-6.50); %Basophils 0.3 % (0.0-1.0); %Eosinophils 1.5 % (0.0-10.0); %Lymphocytes 16.5 % (21.0-51.0); %Monocytes 9.2 % (0.0-10.0); %Neutrophils 72.5 % (42.0-75.0); Hemoglobin 8.8 g/dL (12.0-16.0); Mean Corpuscular HGB CONC 31.6 g/dL (32.0-36.0); Mean Corpuscular Hemoglobin 29.5 pg (27.0-31.0); Mean Corpuscular Volume 93.3 fL (78.0-98.0); Mean Platelet Volume 9.1 fL (7.4-10.4); Platelet Count 188 thou/uL (130-400)
[2020-11-30 02:58] LABS: Anion Gap 6 mmol/L (10-20); BUN (Urea Nitrogen) 14 mg/dL (9.8-20.1); Calc. Creatinine Clearance 42 mL/min (70-130); Carbon Dioxide 21 mmol/L (23-31); Chloride 120 mmol/L (98-107); Glucose 139 mg/dL (80-115); Magnesium 1.9 mg/dL (1.6-2.6); Potassium 3.7 mmol/L (3.5-5.1); Sodium 143 mmol/L (136-145)
[2020-11-30 03:02] LABS: Troponin I 0.065 ng/mL (< 0.028)
[2020-11-30] MEDS: MEROPENEM 1 GM/50 ML 1 GM in Premix Bag 1 BAG IVPB SCH ×2 (03:48→15:31)
[2020-11-30] MEDS ORDERED: Magnesium 2 GM/50 ML 2 GM in Premix Bag 1 BAG IVPB SCH (06:30)
[2020-11-30] MEDS: NIFEdipine XL 30 MG TAB PO SCH (08:16)
[2020-11-30] MEDS: Pantoprazole 40 MG GRANULES PACKET PER TUBE SCH (08:16)
[2020-11-30 08:44] VITALS: BMI 20.5
[2020-11-30] MEDS ORDERED: Metoprolol Tartrate 25 MG TAB PO SCH ×4 (10:24→21:00)
[2020-11-30] MEDS ORDERED: Metoprolol Tartrate 25 MG TAB PER TUBE SCH (10:45)
[2020-11-30] MEDS ORDERED: Furosemide 20 MG/2 ML VIAL SLOW IVP SCH (12:15)
[2020-11-30] MEDS: Metoprolol Tartrate 25 MG TAB PER TUBE SCH (21:48)
[2020-11-30] MEDS: Atorvastatin Calcium 40 MG TAB PO SCH (21:48)
[2020-12-01] MEDS: Lactated Ringer's 1,000 ML IV SCH ×2 (00:07→06:18)
[2020-12-01] MEDS: MEROPENEM 1 GM/50 ML 1 GM in Premix Bag 1 BAG IVPB SCH (05:20)
[2020-12-01] MEDS: Metoprolol Tartrate 25 MG TAB PER TUBE SCH ×2 (08:48→21:35)
[2020-12-01] MEDS: NIFEdipine XL 30 MG TAB PO SCH (08:50)
[2020-12-01] MEDS: Pantoprazole 40 MG GRANULES PACKET PER TUBE SCH (08:50)
[2020-12-01] MEDS ORDERED: Apixaban 5 MG TAB PO SCH (09:00)
[2020-12-01] MEDS: CEFEPIME HCL IN DEXTROSE 5 % 1 GM in Premix Bag 1 BAG IVPB SCH ×2 (10:32→21:36)
[2020-12-01] MEDS: Acetaminophen 325 MG TAB PO PRN (10:36)
[2020-12-01] MEDS ORDERED: Clopidogrel Bisulfate 75 MG TAB PO SCH (11:45)
[2020-12-01] MEDS ORDERED: Aspirin Chewable 81 MG TAB PO SCH (11:45)
[2020-12-01] MEDS: HumaLOG 300 UNITS/3 ML VIAL SC PRN (12:06)
[2020-12-01] MEDS ORDERED: Cefepime 1 GM in Sodium Chloride 0.9% 100 ML IVPB SCH (21:00)
[2020-12-01] MEDS: Atorvastatin Calcium 40 MG TAB PO SCH (21:36)
[2020-12-02] MEDS ORDERED: Pantoprazole 40 MG GRANULES PACKET PO SCH (09:00)
[2020-12-02 09:33] LABS: Anion Gap 10 mmol/L (10-20); BUN (Urea Nitrogen) 22 mg/dL (9.8-20.1); Calc. Creatinine Clearance 43 mL/min (70-130); Calcium 7.7 mg/dL (7.8-10.44); Carbon Dioxide 20 mmol/L (23-31); Chloride 112 mmol/L (98-107); Glucose 152 mg/dL (80-115); Sodium 137 mmol/L (136-145)
[2020-12-02 09:35] LABS: #Eosinphils 0.3 thou/uL (0.0-0.7); #Lymphocytes 2.7 thou/uL (1.20-3.40); #Neutrophils 11.8 thou/uL (1.40-6.50); %Eosinophils 1.6 % (0.0-10.0); %Lymphocytes 16.1 % (21.0-51.0); %Neutrophils 70.3 % (42.0-75.0); Mean Corpuscular HGB CONC 31.2 g/dL (32.0-36.0); Mean Corpuscular Hemoglobin 28.8 pg (27.0-31.0); Mean Corpuscular Volume 92.3 fL (78.0-98.0); Mean Platelet Volume 9.8 fL (7.4-10.4); Platelet Count 162 thou/uL (130-400); RBC Distribution Width 12.9 % (11.5-14.5); Red Blood Cell (RBC) Count 3.11 mill/uL (4.20-5.40); White Blood Cell (WBC) Count 16.8 thou/uL (4.8-10.8)
[2020-12-02] MEDS: Metoprolol Tartrate 25 MG TAB PER TUBE SCH ×2 (11:47→20:06)
[2020-12-02] MEDS: Clopidogrel Bisulfate 75 MG TAB PO SCH (11:47)
[2020-12-02] MEDS: CEFEPIME HCL IN DEXTROSE 5 % 1 GM in Premix Bag 1 BAG IVPB SCH ×2 (11:47→20:06)
[2020-12-02] MEDS: Aspirin Chewable 81 MG TAB PO SCH (11:47)
[2020-12-02] MEDS: NIFEdipine XL 30 MG TAB PO SCH (11:52)
[2020-12-02] MEDS ORDERED: Pantoprazole 40 MG GRANULES PACKET PER TUBE SCH ×2 (14:15→21:00)
[2020-12-02] MEDS ORDERED: Amlodipine 10 MG TAB PO SCH (14:15)
[2020-12-02] MEDS ORDERED: Metoprolol Tartrate 25 MG TAB PER TUBE SCH (14:30)
[2020-12-02] MEDS: HumaLOG 300 UNITS/3 ML VIAL SC PRN (18:21)
[2020-12-02] MEDS: Atorvastatin Calcium 40 MG TAB PO SCH ×2 (20:05→20:06)
[2020-12-02] MEDS: Pantoprazole 40 MG GRANULES PACKET PER TUBE SCH (20:18)
[2020-12-03] MEDS: HumaLOG 300 UNITS/3 ML VIAL SC PRN ×3 (06:25→18:40)
[2020-12-03] MEDS: Aspirin Chewable 81 MG TAB PO SCH (08:52)
[2020-12-03] MEDS: CEFEPIME HCL IN DEXTROSE 5 % 1 GM in Premix Bag 1 BAG IVPB SCH (08:52)
[2020-12-03] MEDS: Clopidogrel Bisulfate 75 MG TAB PO SCH (08:52)
[2020-12-03] MEDS: Metoprolol Tartrate 25 MG TAB PER TUBE SCH ×2 (08:52→22:26)
[2020-12-03] MEDS: Pantoprazole 40 MG GRANULES PACKET PER TUBE SCH ×2 (08:52→22:27)
[2020-12-03] MEDS: Amlodipine 10 MG TAB PO SCH (08:53)
[2020-12-03] MEDS ORDERED: Lisinopril 5 MG TAB PO SCH (09:00)
[2020-12-04 05:21] LABS: #Eosinphils 0.2 thou/uL (0.0-0.7); #Lymphocytes 2.8 thou/uL (1.20-3.40); #Monocytes 1.6 thou/uL (0.11-0.59); #Neutrophils 10.6 thou/uL (1.40-6.50); %Basophils 0.2 % (0.0-1.0); %Eosinophils 1.1 % (0.0-10.0); %Lymphocytes 18.3 % (21.0-51.0); %Monocytes 10.6 % (0.0-10.0); %Neutrophils 69.7 % (42.0-75.0); Hemoglobin 7.9 g/dL (12.0-16.0); Mean Corpuscular HGB CONC 32.9 g/dL (32.0-36.0); Mean Corpuscular Hemoglobin 30.2 pg (27.0-31.0); Mean Corpuscular Volume 91.6 fL (78.0-98.0); Mean Platelet Volume 10.2 fL (7.4-10.4); Platelet Count 183 thou/uL (130-400); RBC Distribution Width 12.9 % (11.5-14.5); Red Blood Cell (RBC) Count 2.63 mill/uL (4.20-5.40); White Blood Cell (WBC) Count 15.3 thou/uL (4.8-10.8)
[2020-12-04 05:38] LABS: Anion Gap 9 mmol/L (10-20); BUN (Urea Nitrogen) 27 mg/dL (9.8-20.1); Calc. Creatinine Clearance 40 mL/min (70-130); Carbon Dioxide 23 mmol/L (23-31); Chloride 109 mmol/L (98-107); Glucose 194 mg/dL (80-115); Potassium 5.3 mmol/L (3.5-5.1); Sodium 136 mmol/L (136-145)
[2020-12-04 05:41] LABS: Magnesium 1.5 mg/dL (1.6-2.6)
[2020-12-04] MEDS ORDERED: Magnesium 2 GM/50 ML 2 GM in Premix Bag 1 BAG IVPB SCH (06:30)
[2020-12-04] MEDS: HumaLOG 300 UNITS/3 ML VIAL SC PRN ×3 (06:45→18:10)
[2020-12-04] MEDS: Sodium Chloride 0.9% 1,000 ML IV SCH (09:25)
[2020-12-04] MEDS: Clopidogrel Bisulfate 75 MG TAB PO SCH (09:25)
[2020-12-04] MEDS: Pantoprazole 40 MG GRANULES PACKET PER TUBE SCH ×2 (09:26→21:24)
[2020-12-04] MEDS: Furosemide 40 MG TAB PER TUBE SCH (09:26)
[2020-12-04] MEDS: Aspirin Chewable 81 MG TAB PO SCH (09:26)
[2020-12-04] MEDS: Digoxin 0.125 MG TAB PER TUBE SCH (09:26)
[2020-12-04] MEDS: Amlodipine 10 MG TAB PO SCH (09:26)
[2020-12-04] MEDS: Metoprolol Tartrate 25 MG TAB PER TUBE SCH ×2 (09:26→21:24)
[2020-12-04] MEDS: Atorvastatin Calcium 40 MG TAB PO SCH (21:24)
[2020-12-05] MEDS: Sodium Chloride 0.9% 1,000 ML IV SCH (03:06)
[2020-12-05 05:33] LABS: #Eosinphils 0.1 thou/uL (0.0-0.7); #Lymphocytes 2.7 thou/uL (1.20-3.40); #Monocytes 1.7 thou/uL (0.11-0.59); #Neutrophils 9.9 thou/uL (1.40-6.50); %Basophils 0.1 % (0.0-1.0); %Eosinophils 0.9 % (0.0-10.0); %Lymphocytes 18.4 % (21.0-51.0); %Neutrophils 68.5 % (42.0-75.0); Hemoglobin 7.7 g/dL (12.0-16.0); Mean Corpuscular HGB CONC 30.8 g/dL (32.0-36.0); Mean Corpuscular Hemoglobin 28.5 pg (27.0-31.0); Mean Corpuscular Volume 92.5 fL (78.0-98.0); Platelet Count 216 thou/uL (130-400); RBC Distribution Width 13.3 % (11.5-14.5); Red Blood Cell (RBC) Count 2.71 mill/uL (4.20-5.40); White Blood Cell (WBC) Count 14.4 thou/uL (4.8-10.8)
[2020-12-05 05:51] LABS: Anion Gap 11 mmol/L (10-20); BUN (Urea Nitrogen) 26 mg/dL (9.8-20.1); Calc. Creatinine Clearance 40 mL/min (70-130); Calcium 8.4 mg/dL (7.8-10.44); Carbon Dioxide 23 mmol/L (23-31); Chloride 109 mmol/L (98-107); Glucose 179 mg/dL (80-115); Magnesium 1.8 mg/dL (1.6-2.6); Potassium 5.2 mmol/L (3.5-5.1); Sodium 138 mmol/L (136-145)
[2020-12-05] MEDS: HumaLOG 300 UNITS/3 ML VIAL SC PRN ×2 (06:37→15:13)
[2020-12-05] MEDS ORDERED: Magnesium 2 GM/50 ML 2 GM in Premix Bag 1 BAG IVPB SCH (07:00)
[2020-12-05] MEDS: Aspirin Chewable 81 MG TAB PO SCH (10:29)
[2020-12-05] MEDS: Clopidogrel Bisulfate 75 MG TAB PO SCH (10:29)
[2020-12-05] MEDS: Amlodipine 10 MG TAB PO SCH (10:29)
[2020-12-05] MEDS: Digoxin 0.125 MG TAB PER TUBE SCH (10:30)
[2020-12-05] MEDS: Metoprolol Tartrate 25 MG TAB PER TUBE SCH (10:30)
[2020-12-05] MEDS: Pantoprazole 40 MG GRANULES PACKET PER TUBE SCH ×2 (10:30→21:18)
[2020-12-05] MEDS: Furosemide 40 MG TAB PER TUBE SCH (10:30)
[2020-12-05] MEDS ORDERED: Furosemide 20 MG TAB PER TUBE SCH (14:30)
[2020-12-05] MEDS: Atorvastatin Calcium 40 MG TAB PO SCH (21:18)
[2020-12-05] MEDS: Metoprolol Tartrate 50 MG TAB PER TUBE SCH (21:19)
[2020-12-06] MEDS: Sodium Chloride 0.9% 1,000 ML IV SCH (03:35)
[2020-12-06] MEDS: HumaLOG 300 UNITS/3 ML VIAL SC PRN ×2 (06:42→12:55)
[2020-12-06] MEDS: Amlodipine 10 MG TAB PO SCH (10:22)
[2020-12-06] MEDS: Aspirin Chewable 81 MG TAB PO SCH (10:22)
[2020-12-06] MEDS: Digoxin 0.125 MG TAB PER TUBE SCH (10:23)
[2020-12-06] MEDS: Furosemide 20 MG TAB PER TUBE SCH ×2 (10:23→14:36)
[2020-12-06] MEDS: Metoprolol Tartrate 50 MG TAB PER TUBE SCH ×2 (10:23→21:04)
[2020-12-06] MEDS: Clopidogrel Bisulfate 75 MG TAB PO SCH (10:23)
[2020-12-06] MEDS: Pantoprazole 40 MG GRANULES PACKET PER TUBE SCH ×2 (10:24→21:04)
[2020-12-06] MEDS: Acetaminophen 325 MG TAB PO PRN (19:58)
[2020-12-06 20:29] LABS: Lactic Acid 2.2 mmol/L (0.5-2.2)
[2020-12-06] MEDS ORDERED: VANCOMYCIN 1.25 GM/250 ML BAG 1.25 GM in Premix Bag 1 BAG IVPB SCH (20:30)
[2020-12-06 20:33] LABS: ALT (SGPT) 10 U/L (8-55); AST (SGOT) 27 U/L (5-34); Albumin 2.7 g/dL (3.4-4.8); Alkaline Phosphatase 159 U/L (40-110); Anion Gap 15 mmol/L (10-20); BUN (Urea Nitrogen) 22 mg/dL (9.8-20.1); Bilirubin, Total 0.2 mg/dL (0.2-1.2); Calc. Creatinine Clearance 34 mL/min (70-130); Calcium 8.6 mg/dL (7.8-10.44); Carbon Dioxide 21 mmol/L (23-31); Chloride 108 mmol/L (98-107); Globulin 4.1 g/dL (2.4-3.5); Glucose 185 mg/dL (80-115); Magnesium 1.5 mg/dL (1.6-2.6); Potassium 4.9 mmol/L (3.5-5.1); Protein, Total 6.8 g/dL (5.8-8.1); Sodium 139 mmol/L (136-145)
[2020-12-06 20:48] LABS: Hemoglobin 8.5 g/dL (12.0-16.0); Mean Corpuscular HGB CONC 32.6 g/dL (32.0-36.0); Mean Corpuscular Hemoglobin 29.6 pg (27.0-31.0); Mean Corpuscular Volume 90.8 fL (78.0-98.0); Mean Platelet Volume 9.4 fL (7.4-10.4); Platelet Count 316 thou/uL (130-400); RBC Distribution Width 13.3 % (11.5-14.5); Red Blood Cell (RBC) Count 2.86 mill/uL (4.20-5.40)
[2020-12-06] MEDS ORDERED: Vancomycin 1 GM in Premix Bag 1 BAG IVPB SCH (21:00)
[2020-12-06 21:02] LABS: Band 15 % (5-11); Eosinophils 1 % (0-10); Lymphocytes 5 % (21-51); MDiff Complete? YES; Monocytes 4 % (0-10); Neutrophil 72 % (42-75); Platelet Morphology Comment Appears Adequate; Reactive Lymphocytes 3 % (0-10); Target Cells SLIGHT = 2-5 cells (100X) (0-1/hpf)
[2020-12-06] MEDS: Atorvastatin Calcium 40 MG TAB PO SCH (21:04)
[2020-12-06] MEDS ORDERED: Cefepime 1 GM in Sodium Chloride 0.9% 100 ML IVPB SCH ×2 (21:30→22:00)
[2020-12-06 21:43] LABS: Bacteria/HPF None Seen HPF (None Seen); Bilirubin Negative (Negative); Blood, Urine 3+ (Negative); Clarity Clear (Clear); Glucose, Urine (Dipstick) Normal (Negative); Ketone, Urine Negative (Negative); Leukocyte Negative Leu/uL (Negative); Nitrite Negative (Negative); Protein, Urine (Dipstick) 30 mg/dL (Neg-Trace); RBC/HPF Greater than 50 HPF (0-3); Specific Gravity, Urine 1.009 (1.002-1.036); Squamous Epithelial None Seen HPF (0-3); Urobilinogen Normal mg/dL (Less than 2); pH, Urine 7.5 (5.0-9.0)
[2020-12-06 21:46] LABS: Urine Culture Reflex Yes Yes
[2020-12-07 05:58] LABS: Anion Gap 13 mmol/L (10-20); BUN (Urea Nitrogen) 25 mg/dL (9.8-20.1); Calc. Creatinine Clearance 36 mL/min (70-130); Calcium 8.3 mg/dL (7.8-10.44); Carbon Dioxide 20 mmol/L (23-31); Chloride 109 mmol/L (98-107); Glucose 142 mg/dL (80-115); Potassium 4.6 mmol/L (3.5-5.1); Sodium 137 mmol/L (136-145)
[2020-12-07] MEDS ORDERED: Magnesium 2 GM/50 ML 2 GM in Premix Bag 1 BAG IVPB SCH (06:30)
[2020-12-07] MEDS: Aspirin Chewable 81 MG TAB PO SCH (08:38)
[2020-12-07] MEDS: Furosemide 20 MG TAB PER TUBE SCH ×2 (08:39→15:06)
[2020-12-07] MEDS: Metoprolol Tartrate 50 MG TAB PER TUBE SCH ×2 (08:39→21:58)
[2020-12-07] MEDS: Digoxin 0.125 MG TAB PER TUBE SCH (08:39)
[2020-12-07] MEDS: Amlodipine 10 MG TAB PO SCH (08:39)
[2020-12-07] MEDS: Clopidogrel Bisulfate 75 MG TAB PO SCH (08:39)
[2020-12-07] MEDS: Pantoprazole 40 MG GRANULES PACKET PER TUBE SCH ×2 (08:56→21:58)
[2020-12-07] MEDS: Cefepime 1 GM in Sodium Chloride 0.9% 100 ML IVPB SCH ×2 (11:10→21:57)
[2020-12-07] MEDS: HumaLOG 300 UNITS/3 ML VIAL SC PRN (13:10)
[2020-12-07] MEDS ORDERED: Vancomycin HCl 750 MG in Sodium Chloride 0.9% 250 ML 250 ML IVPB SCH (20:00)
[2020-12-07] MEDS: Atorvastatin Calcium 40 MG TAB PO SCH (21:58)
[2020-12-08 05:33] LABS: ALT (SGPT) 8 U/L (8-55); AST (SGOT) 21 U/L (5-34); Albumin 2.3 g/dL (3.4-4.8); Alkaline Phosphatase 137 U/L (40-110); Anion Gap 9 mmol/L (10-20); BUN (Urea Nitrogen) 27 mg/dL (9.8-20.1); Bilirubin, Total 0.2 mg/dL (0.2-1.2); Calc. Creatinine Clearance 36 mL/min (70-130); Calcium 8.5 mg/dL (7.8-10.44); Carbon Dioxide 24 mmol/L (23-31); Chloride 104 mmol/L (98-107); Glucose 164 mg/dL (80-115); Potassium 4.2 mmol/L (3.5-5.1); Protein, Total 6.3 g/dL (5.8-8.1); Sodium 133 mmol/L (136-145)
[2020-12-08] MEDS: HumaLOG 300 UNITS/3 ML VIAL SC PRN ×2 (06:07→13:25)
[2020-12-08] MEDS ORDERED: Magnesium 2 GM/50 ML 2 GM in Premix Bag 1 BAG IVPB SCH (06:30)
[2020-12-08] MEDS: Aspirin Chewable 81 MG TAB PO SCH (08:51)
[2020-12-08] MEDS: Cefepime 1 GM in Sodium Chloride 0.9% 100 ML IVPB SCH (08:51)
[2020-12-08] MEDS: Amlodipine 10 MG TAB PO SCH (08:51)
[2020-12-08] MEDS: Furosemide 20 MG TAB PER TUBE SCH ×2 (08:51→13:06)
[2020-12-08] MEDS: Pantoprazole 40 MG GRANULES PACKET PER TUBE SCH ×2 (08:51→22:30)
[2020-12-08] MEDS: Metoprolol Tartrate 50 MG TAB PER TUBE SCH ×2 (08:51→22:30)
[2020-12-08] MEDS: Clopidogrel Bisulfate 75 MG TAB PO SCH (08:51)
[2020-12-08] MEDS: Digoxin 0.125 MG TAB PER TUBE SCH (08:52)
[2020-12-08 14:04] LABS: Hemoglobin 7.7 g/dL (12.0-16.0); Mean Corpuscular HGB CONC 32.7 g/dL (32.0-36.0); Mean Corpuscular Hemoglobin 29.7 pg (27.0-31.0); Mean Corpuscular Volume 90.6 fL (78.0-98.0); Platelet Count 323 thou/uL (130-400); RBC Distribution Width 13.4 % (11.5-14.5); Red Blood Cell (RBC) Count 2.58 mill/uL (4.20-5.40); White Blood Cell (WBC) Count 14.3 thou/uL (4.8-10.8)
[2020-12-08] MEDS: Atorvastatin Calcium 40 MG TAB PO SCH (22:30)
[2020-12-08] MEDS: Aggrenox 200-25mg CAP PO SCH (22:30)
[2020-12-09 05:21] LABS: #Eosinphils 0.2 thou/uL (0.0-0.7); #Lymphocytes 1.9 thou/uL (1.20-3.40); #Monocytes 1.3 thou/uL (0.11-0.59); #Neutrophils 10.6 thou/uL (1.40-6.50); %Basophils 0.2 % (0.0-1.0); %Eosinophils 1.2 % (0.0-10.0); %Lymphocytes 13.5 % (21.0-51.0); %Monocytes 9.1 % (0.0-10.0); %Neutrophils 75.9 % (42.0-75.0); Hemoglobin 7.6 g/dL (12.0-16.0); Mean Corpuscular Hemoglobin 28.2 pg (27.0-31.0); Mean Platelet Volume 9.1 fL (7.4-10.4); Platelet Count 372 thou/uL (130-400); RBC Distribution Width 13.2 % (11.5-14.5); Red Blood Cell (RBC) Count 2.69 mill/uL (4.20-5.40)
[2020-12-09] MEDS: HumaLOG 300 UNITS/3 ML VIAL SC PRN ×2 (05:46→12:29)
[2020-12-09 05:47] LABS: Anion Gap 12 mmol/L (10-20); BUN (Urea Nitrogen) 30 mg/dL (9.8-20.1); Calc. Creatinine Clearance 35 mL/min (70-130); Calcium 8.8 mg/dL (7.8-10.44); Carbon Dioxide 21 mmol/L (23-31); Chloride 106 mmol/L (98-107); Glucose 207 mg/dL (80-115); Potassium 4.5 mmol/L (3.5-5.1); Sodium 134 mmol/L (136-145)
[2020-12-09] MEDS: Aggrenox 200-25mg CAP PO SCH (07:48)
[2020-12-09] MEDS: Furosemide 20 MG TAB PER TUBE SCH ×2 (07:48→14:22)
[2020-12-09] MEDS: Pantoprazole 40 MG GRANULES PACKET PER TUBE SCH (07:48)
[2020-12-09] MEDS: Metoprolol Tartrate 50 MG TAB PER TUBE SCH (07:48)
[2020-12-09] MEDS: Amlodipine 10 MG TAB PO SCH (07:48)
[2020-12-09] MEDS: Digoxin 0.125 MG TAB PER TUBE SCH (07:49)
[2020-12-09 15:54] VITALS: BP 146/66; TEMP 98.1
== END 2020-12-09 16:34 | DRG 61 ==
LOC: ERS 13:51 → PACU-TCU 15:44 → CCU 17:45 → 2SE 11-25 10:13
PROVIDERS: ADMIT Neurological Surgery; ATTEND Internal Medicine
PROC: 3E03317 Introduction of Other Thrombolytic into Peripheral Vein, Percutaneous Approach (ICD-10-PCS; principal; 2020-11-23)
PROC: B3141ZZ Fluoroscopy of Left Common Carotid Artery using Low Osmolar Contrast (ICD-10-PCS; 2020-11-23)
PROC: B31H1ZZ Fluoroscopy of Right Upper Extremity Arteries using Low Osmolar Contrast (ICD-10-PCS; 2020-11-23)
PROC: 5A1935Z Respiratory Ventilation, Less than 24 Consecutive Hours (ICD-10-PCS; 2020-11-23)
PROC: 0BH18EZ Insertion of Endotracheal Airway into Trachea, Via Natural or Artificial Opening Endoscopic (ICD-10-PCS; 2020-11-23)
PROC: 0DB68ZX Excision of Stomach, Via Natural or Artificial Opening Endoscopic, Diagnostic (ICD-10-PCS; 2020-11-28)
PROC: 0DH63UZ Insertion of Feeding Device into Stomach, Percutaneous Approach (ICD-10-PCS; 2020-11-28)
PROC: 4A10X4Z Monitoring of Central Nervous Electrical Activity, External Approach (ICD-10-PCS; 2020-12-06)
PROC: 4A10X4Z Monitoring of Central Nervous Electrical Activity, External Approach (ICD-10-PCS; 2020-12-06)
DX: I63.312 Cerebral infarction due to thrombosis of left middle cerebral artery (principal); J96.00 Acute respiratory failure, unspecified whether with hypoxia or hypercapnia; G81.91 Hemiplegia, unspecified affecting right dominant side; I48.20 Chronic atrial fibrillation, unspecified; I50.32 Chronic diastolic (congestive) heart failure; F10.27 Alcohol dependence with alcohol-induced persisting dementia; N39.0 Urinary tract infection, site not specified; E87.0 Hyperosmolality and hypernatremia; E44.0 Moderate protein-calorie malnutrition; J81.1 Chronic pulmonary edema; I13.0 Hypertensive heart and chronic kidney disease with heart failure and stage 1 through stage 4 chronic kidney disease, or unspecified chronic kidney disease; I63.89 Other cerebral infarction; R47.01 Aphasia; R47.1 Dysarthria and anarthria; I25.10 Atherosclerotic heart disease of native coronary artery without angina pectoris; E87.6 Hypokalemia; N18.9 Chronic kidney disease, unspecified; E11.22 Type 2 diabetes mellitus with diabetic chronic kidney disease; E53.8 Deficiency of other specified B group vitamins; K21.9 Gastro-esophageal reflux disease without esophagitis; E83.42 Hypomagnesemia; R13.12 Dysphagia, oropharyngeal phase; B96.5 Pseudomonas (aeruginosa) (mallei) (pseudomallei) as the cause of diseases classified elsewhere; K29.80 Duodenitis without bleeding; E87.8 Other disorders of electrolyte and fluid balance, not elsewhere classified; K29.70 Gastritis, unspecified, without bleeding; G89.4 Chronic pain syndrome; F32.9 Major depressive disorder, single episode, unspecified; E78.5 Hyperlipidemia, unspecified; Z90.710 Acquired absence of both cervix and uterus; Z95.0 Presence of cardiac pacemaker; Z91.19 Patient's noncompliance with other medical treatment and regimen; Z68.20 Body mass index [BMI] 20.0-20.9, adult
CPT/HCPCS: 36215; 36223; 36415; 36416; 51702; 70450; 70496; 70498; 71045; 74177; 74230; 80048; 80053; 80061; 80202; 80306; 80307; 81001; 81003; 82550; 82553; 82805; 83605; 83690; 83735; 84145; 84443; 84484; 85025; 85027; 85610; 85730; 87040; 87077; 87086; 87186; 88305; 88312; 93005; 93010; 93306; 94002; 94003; 95712; 95819; 95957; 96365; 96376; C1887; C9113; J0360; J0692; J0696; J1650; J1815; J1940; J2185; J2250; J2370; J2704; J2997; J3010; J3370; J3475; J3480; J3490; J7050; Q9967; U0002; U0005

== ENCOUNTER 2020-12-20 07:24 | Outpatient (CLI) | payer MEDICARE, SELFPAY | END 2020-12-20 07:25 | disposition home or self-care (01) | LOC: HS RAD 07:24 | PROVIDERS: ATTEND Internal Medicine | DX: J69.0 Pneumonitis due to inhalation of food and vomit (principal) | CPT/HCPCS: 71045 ==

== ENCOUNTER 2021-01-07 20:58 | Inpatient (IN) | payer MEDICARE ==
[2021-01-07 21:44] LABS: #Basophils 0.1 thou/uL (0.0-0.2); #Eosinphils 0.3 thou/uL (0.0-0.7); #Lymphocytes 1.5 thou/uL (1.20-3.40); #Monocytes 1.2 thou/uL (0.11-0.59); #Neutrophils 13.7 thou/uL (1.40-6.50); %Basophils 0.4 % (0.0-1.0); %Neutrophils 81.7 % (42.0-75.0); Hemoglobin 8.4 g/dL (12.0-16.0); Mean Corpuscular Hemoglobin 27.8 pg (27.0-31.0); Mean Corpuscular Volume 89.9 fL (78.0-98.0); Mean Platelet Volume 9.9 fL (7.4-10.4); Platelet Count 373 thou/uL (130-400); RBC Distribution Width 13.2 % (11.5-14.5); Red Blood Cell (RBC) Count 3.01 mill/uL (4.20-5.40); White Blood Cell (WBC) Count 16.8 thou/uL (4.8-10.8)
[2021-01-07 21:52] LABS: INR-International Normal Ratio 1.2; Prothrombin Time 15.2 sec (12.0-14.7)
[2021-01-07 21:53] LABS: PTT 36.8 sec (22.9-36.1)
[2021-01-07 22:09] LABS: ALT (SGPT) 50 U/L (8-55); AST (SGOT) 21 U/L (5-34); Alkaline Phosphatase 240 U/L (40-110); Anion Gap 17 mmol/L (10-20); BUN (Urea Nitrogen) 82 mg/dL (9.8-20.1); Bilirubin, Total 0.2 mg/dL (0.2-1.2); Calc. Creatinine Clearance 0 mL/min (70-130); Calcium 9.5 mg/dL (7.8-10.44); Carbon Dioxide 26 mmol/L (23-31); Chloride 113 mmol/L (98-107); Globulin 4.5 g/dL (2.4-3.5); Potassium 5.2 mmol/L (3.5-5.1); Protein, Total 7.5 g/dL (5.8-8.1); Sodium 151 mmol/L (136-145)
[2021-01-07 22:11] LABS: Actual Bicarbonate (HCO3v) 22 mEq/L (22-28); Analyzer IN Cardio ER; Base Excess 0.4 mEq/L (-2.0 to +3.0); Calcium, Ionized (venous) 1.07 mmol/L (1.16-1.32); Chloride (VBG) 114 mmol/L (98-106); Hemoglobin (Hb) 8.8 g/dL (11.7-16.1); Potassium (VBG) 4.88 mmol/L (3.70-5.30); pH (venous) 7.56 (7.32-7.43)
[2021-01-07 22:18] LABS: Glucose 679 mg/dL (80-115)
[2021-01-07] MEDS ORDERED: Vancomycin 1 GM/200 ML BAG ONE (22:34)
[2021-01-07] MEDS ORDERED: Insulin Regular 300 UNITS/3 ML VIAL ONE (22:34)
[2021-01-07] MEDS ORDERED: Dextrose 50% Abboject 50 ML SYRINGE ONE (22:52)
[2021-01-07] MEDS ORDERED: Cefepime 2 GM in Sodium Chloride 0.9% 100 ML IVPB SCH (23:59)
[2021-01-08 00:20] LABS: Bilirubin Negative (Negative); Blood, Urine Negative (Negative); Clarity Clear (Clear); Glucose, Urine (Dipstick) Greater than 1000 mg/dL (Negative); Ketone, Urine Negative (Negative); Leukocyte Negative Leu/uL (Negative); Nitrite Negative (Negative); Protein, Urine (Dipstick) 20 mg/dL (Neg-Trace); Specific Gravity, Urine 1.017 (1.002-1.036); Urobilinogen Normal mg/dL (Less than 2)
[2021-01-08 00:59] LABS: Lactic Acid 3.6 mmol/L (0.5-2.2)
[2021-01-08 04:27] VITALS: BMI 20.7
[2021-01-08 06:55] LABS: SARS-CoV-2 NAA Rapid Test Not Detected (NotDetected)
[2021-01-08] MEDS ORDERED: Senokot S 8.6-50 MG TAB PO PRN (07:49)
[2021-01-08] MEDS ORDERED: Dextrose 5% in Water 1,000 ML IV PRN (07:58)
[2021-01-08] MEDS ORDERED: Dextrose 50% Abboject 50 ML SYRINGE SLOW IVP PRN (07:58)
[2021-01-08] MEDS ORDERED: Lantus 1000 UNITS/10 ML VIAL SC SCH (09:00)
[2021-01-08] MEDS ORDERED: cefTRIAXone\\ROCEPHIN 1 GM in Sodium Chloride 0.9% 100 ML IVPB SCH (09:00)
[2021-01-08] MEDS ORDERED: Enoxaparin Sodium 40 MG/0.4 ML SYRINGE SC SCH (09:00)
[2021-01-08] MEDS: Enoxaparin Sodium 30 MG/0.3 ML SYRINGE SC SCH (10:00)
[2021-01-08] MEDS: Aggrenox 200-25mg CAP PO SCH ×2 (10:43→21:10)
[2021-01-08] MEDS: Digoxin 0.125 MG TAB PO SCH (10:43)
[2021-01-08] MEDS: Amlodipine 10 MG TAB PER TUBE SCH (10:44)
[2021-01-08] MEDS: Metoprolol Tartrate 50 MG TAB PER TUBE SCH ×2 (10:44→21:19)
[2021-01-08] MEDS: Sodium Chloride 0.9% 1,000 ML IV SCH ×2 (10:49→19:21)
[2021-01-08 13:26] LABS: #Basophils 0.1 thou/uL (0.0-0.2); #Eosinphils 0.6 thou/uL (0.0-0.7); #Lymphocytes 1.6 thou/uL (1.20-3.40); #Neutrophils 14.4 thou/uL (1.40-6.50); %Basophils 0.4 % (0.0-1.0); %Eosinophils 3.3 % (0.0-10.0); %Monocytes 5.5 % (0.0-10.0); %Neutrophils 81.8 % (42.0-75.0); Hemoglobin 9.2 g/dL (12.0-16.0); Hypochromia SLIGHT = 6-15 cells (100X) (0-5/hpf); MDiff Complete? YES; Mean Corpuscular Hemoglobin 26.6 pg (27.0-31.0); Mean Corpuscular Volume 88.7 fL (78.0-98.0); Mean Platelet Volume 9.5 fL (7.4-10.4); Platelet Count 370 thou/uL (130-400); Platelet Morphology Comment Appears Adequate; Polychromasia SLIGHT = 2-3 cells (100X) (0-2/hpf); RBC Distribution Width 13.2 % (11.5-14.5); Red Blood Cell (RBC) Count 3.45 mill/uL (4.20-5.40); Target Cells SLIGHT = 2-5 cells (100X) (0-1/hpf); White Blood Cell (WBC) Count 17.6 thou/uL (4.8-10.8)
[2021-01-08 13:27] LABS: Anion Gap 15 mmol/L (10-20); BUN (Urea Nitrogen) 61 mg/dL (9.8-20.1); Calc. Creatinine Clearance 34 mL/min (70-130); Calcium 9.3 mg/dL (7.8-10.44); Carbon Dioxide 24 mmol/L (23-31); Chloride 120 mmol/L (98-107); Glucose 286 mg/dL (80-115); Potassium 4.6 mmol/L (3.5-5.1); Sodium 154 mmol/L (136-145)
[2021-01-08 17:34] LABS: Lactic Acid 1.5 mmol/L (0.5-2.2)
[2021-01-08] MEDS ORDERED: Dextrose 5 %-0.45 % NaCl 1,000 ML IV SCH (19:00)
[2021-01-08] MEDS: Lantus 1000 UNITS/10 ML VIAL SC SCH (20:09)
[2021-01-08] MEDS: Atorvastatin Calcium 40 MG TAB PO SCH (21:19)
[2021-01-09 06:49] LABS: #Eosinphils 0.9 thou/uL (0.0-0.7); #Lymphocytes 1.9 thou/uL (1.20-3.40); #Monocytes 1.2 thou/uL (0.11-0.59); #Neutrophils 13.1 thou/uL (1.40-6.50); %Basophils 0.2 % (0.0-1.0); %Eosinophils 5.1 % (0.0-10.0); %Lymphocytes 11.1 % (21.0-51.0); %Monocytes 6.8 % (0.0-10.0); %Neutrophils 76.9 % (42.0-75.0); Mean Corpuscular HGB CONC 31.3 g/dL (32.0-36.0); Mean Corpuscular Volume 89.4 fL (78.0-98.0); Mean Platelet Volume 9.6 fL (7.4-10.4); Platelet Count 353 thou/uL (130-400); RBC Distribution Width 13.3 % (11.5-14.5)
[2021-01-09 07:09] LABS: ALT (SGPT) 42 U/L (8-55); AST (SGOT) 32 U/L (5-34); Albumin 2.8 g/dL (3.4-4.8); Alkaline Phosphatase 233 U/L (40-110); Anion Gap 15 mmol/L (10-20); BUN (Urea Nitrogen) 43 mg/dL (9.8-20.1); Bilirubin, Total 0.2 mg/dL (0.2-1.2); Calc. Creatinine Clearance 44 mL/min (70-130); Calcium 9.1 mg/dL (7.8-10.44); Carbon Dioxide 22 mmol/L (23-31); Chloride 122 mmol/L (98-107); Globulin 4.3 g/dL (2.4-3.5); Glucose 191 mg/dL (80-115); Potassium 4.8 mmol/L (3.5-5.1); Protein, Total 7.1 g/dL (5.8-8.1); Sodium 154 mmol/L (136-145)
[2021-01-09] MEDS: Amlodipine 10 MG TAB PER TUBE SCH (08:15)
[2021-01-09] MEDS: Digoxin 0.125 MG TAB PO SCH (08:15)
[2021-01-09] MEDS: Metoprolol Tartrate 50 MG TAB PER TUBE SCH ×2 (08:15→21:06)
[2021-01-09] MEDS: Aggrenox 200-25mg CAP PO SCH ×2 (08:15→21:06)
[2021-01-09] MEDS: Lantus 1000 UNITS/10 ML VIAL SC SCH ×2 (08:16→21:06)
[2021-01-09] MEDS: cefTRIAXone\\ROCEPHIN 1 GM in Sodium Chloride 0.9% 100 ML IVPB SCH (08:16)
[2021-01-09] MEDS: Enoxaparin Sodium 30 MG/0.3 ML SYRINGE SC SCH (08:16)
[2021-01-09] MEDS: Atorvastatin Calcium 40 MG TAB PO SCH (21:06)
[2021-01-10] MEDS: cefTRIAXone\\ROCEPHIN 1 GM in Sodium Chloride 0.9% 100 ML IVPB SCH (09:05)
[2021-01-10] MEDS: Enoxaparin Sodium 30 MG/0.3 ML SYRINGE SC SCH (09:05)
[2021-01-10] MEDS: Amlodipine 10 MG TAB PER TUBE SCH (09:06)
[2021-01-10] MEDS: Digoxin 0.125 MG TAB PO SCH (09:06)
[2021-01-10] MEDS: Metoprolol Tartrate 50 MG TAB PER TUBE SCH ×2 (09:06→20:13)
[2021-01-10] MEDS: Lantus 1000 UNITS/10 ML VIAL SC SCH ×2 (09:06→20:14)
[2021-01-10] MEDS: Aggrenox 200-25mg CAP PO SCH ×2 (09:07→20:14)
[2021-01-10 10:26] LABS: #Eosinphils 0.6 thou/uL (0.0-0.7); #Lymphocytes 2.7 thou/uL (1.20-3.40); #Monocytes 1.1 thou/uL (0.11-0.59); #Neutrophils 11.7 thou/uL (1.40-6.50); %Basophils 0.3 % (0.0-1.0); %Lymphocytes 16.5 % (21.0-51.0); %Monocytes 6.7 % (0.0-10.0); %Neutrophils 72.5 % (42.0-75.0); Hemoglobin 7.8 g/dL (12.0-16.0); Mean Corpuscular HGB CONC 30.3 g/dL (32.0-36.0); Mean Corpuscular Hemoglobin 26.7 pg (27.0-31.0); Mean Corpuscular Volume 87.8 fL (78.0-98.0); Mean Platelet Volume 10.2 fL (7.4-10.4); Platelet Count 318 thou/uL (130-400); RBC Distribution Width 13.4 % (11.5-14.5); Red Blood Cell (RBC) Count 2.93 mill/uL (4.20-5.40); White Blood Cell (WBC) Count 16.2 thou/uL (4.8-10.8)
[2021-01-10 11:16] LABS: Anion Gap 17 mmol/L (10-20); BUN (Urea Nitrogen) 44 mg/dL (9.8-20.1); Calc. Creatinine Clearance 36 mL/min (70-130); Calcium 8.6 mg/dL (7.8-10.44); Carbon Dioxide 19 mmol/L (23-31); Chloride 118 mmol/L (98-107); Glucose 220 mg/dL (80-115); Potassium 5.6 mmol/L (3.5-5.1); Sodium 148 mmol/L (136-145)
[2021-01-10] MEDS: Dextrose 5 %-0.45 % NaCl 1,000 ML IV SCH (13:29)
[2021-01-10] MEDS: HumaLOG 300 UNITS/3 ML VIAL SC PRN ×2 (17:27→20:19)
[2021-01-10] MEDS: Atorvastatin Calcium 40 MG TAB PO SCH (20:14)
[2021-01-11 06:19] LABS: #Eosinphils 0.4 thou/uL (0.0-0.7); #Lymphocytes 2.9 thou/uL (1.20-3.40); #Monocytes 1.3 thou/uL (0.11-0.59); #Neutrophils 11.9 thou/uL (1.40-6.50); %Basophils 0.1 % (0.0-1.0); %Eosinophils 2.2 % (0.0-10.0); %Lymphocytes 17.4 % (21.0-51.0); %Monocytes 8.1 % (0.0-10.0); %Neutrophils 72.3 % (42.0-75.0); Hemoglobin 8.1 g/dL (12.0-16.0); Mean Corpuscular HGB CONC 30.7 g/dL (32.0-36.0); Mean Corpuscular Hemoglobin 26.7 pg (27.0-31.0); Mean Corpuscular Volume 86.9 fL (78.0-98.0); Mean Platelet Volume 9.6 fL (7.4-10.4); Platelet Count 291 thou/uL (130-400); RBC Distribution Width 13.4 % (11.5-14.5); Red Blood Cell (RBC) Count 3.04 mill/uL (4.20-5.40); White Blood Cell (WBC) Count 16.4 thou/uL (4.8-10.8)
[2021-01-11 06:28] LABS: Anion Gap 14 mmol/L (10-20); BUN (Urea Nitrogen) 39 mg/dL (9.8-20.1); Calc. Creatinine Clearance 36 mL/min (70-130); Calcium 8.7 mg/dL (7.8-10.44); Carbon Dioxide 20 mmol/L (23-31); Chloride 118 mmol/L (98-107); Glucose 106 mg/dL (80-115); Potassium 4.6 mmol/L (3.5-5.1); Sodium 147 mmol/L (136-145)
[2021-01-11] MEDS: Metoprolol Tartrate 50 MG TAB PER TUBE SCH ×2 (09:09→21:44)
[2021-01-11] MEDS: Dextrose 5 %-0.45 % NaCl 1,000 ML IV SCH (09:09)
[2021-01-11] MEDS: cefTRIAXone\\ROCEPHIN 1 GM in Sodium Chloride 0.9% 100 ML IVPB SCH (09:09)
[2021-01-11] MEDS: Aggrenox 200-25mg CAP PO SCH ×2 (09:09→21:43)
[2021-01-11] MEDS: Enoxaparin Sodium 30 MG/0.3 ML SYRINGE SC SCH (09:09)
[2021-01-11] MEDS: Amlodipine 10 MG TAB PER TUBE SCH (09:09)
[2021-01-11] MEDS: Digoxin 0.125 MG TAB PO SCH (09:09)
[2021-01-11] MEDS: Lantus 1000 UNITS/10 ML VIAL SC SCH ×2 (09:10→21:46)
[2021-01-11] MEDS: HumaLOG 300 UNITS/3 ML VIAL SC PRN ×2 (17:56→21:47)
[2021-01-11] MEDS: Atorvastatin Calcium 40 MG TAB PO SCH (21:44)
[2021-01-11] MEDS: Acetaminophen 325 MG TAB PO PRN (21:45)
[2021-01-12] MEDS: Acetaminophen 325 MG TAB PO PRN ×2 (01:30→21:15)
[2021-01-12] MEDS: Dextrose 5 %-0.45 % NaCl 1,000 ML IV SCH ×2 (04:15→20:30)
[2021-01-12] MEDS: Enoxaparin Sodium 30 MG/0.3 ML SYRINGE SC SCH (08:53)
[2021-01-12] MEDS: cefTRIAXone\\ROCEPHIN 1 GM in Sodium Chloride 0.9% 100 ML IVPB SCH (08:53)
[2021-01-12] MEDS: Metoprolol Tartrate 50 MG TAB PER TUBE SCH ×2 (08:54→21:15)
[2021-01-12] MEDS: Digoxin 0.125 MG TAB PO SCH (08:54)
[2021-01-12] MEDS: Amlodipine 10 MG TAB PER TUBE SCH (08:54)
[2021-01-12] MEDS: Lantus 1000 UNITS/10 ML VIAL SC SCH ×2 (08:55→21:16)
[2021-01-12] MEDS: Aggrenox 200-25mg CAP PO SCH ×2 (09:01→21:15)
[2021-01-12] MEDS: HumaLOG 300 UNITS/3 ML VIAL SC PRN (13:11)
[2021-01-12] MEDS: Ondansetron PF 4 MG/2 ML Vial IVP PRN (17:07)
[2021-01-12] MEDS: Atorvastatin Calcium 40 MG TAB PO SCH (21:15)
[2021-01-13] MEDS: Ondansetron PF 4 MG/2 ML Vial IVP PRN ×2 (05:10→19:46)
[2021-01-13] MEDS: Acetaminophen 325 MG TAB PO PRN ×2 (05:10→19:46)
[2021-01-13 08:17] LABS: Hemoglobin 7.6 g/dL (12.0-16.0); Mean Corpuscular Hemoglobin 26.1 pg (27.0-31.0); Mean Corpuscular Volume 87.2 fL (78.0-98.0); Mean Platelet Volume 10.5 fL (7.4-10.4); Platelet Count 265 thou/uL (130-400); RBC Distribution Width 13.5 % (11.5-14.5); White Blood Cell (WBC) Count 16.7 thou/uL (4.8-10.8)
[2021-01-13 08:21] LABS: Anion Gap 15 mmol/L (10-20); BUN (Urea Nitrogen) 29 mg/dL (9.8-20.1); Calc. Creatinine Clearance 35 mL/min (70-130); Calcium 8.5 mg/dL (7.8-10.44); Carbon Dioxide 16 mmol/L (23-31); Chloride 116 mmol/L (98-107); Glucose 236 mg/dL (80-115); Potassium 5.2 mmol/L (3.5-5.1); Sodium 142 mmol/L (136-145)
[2021-01-13] MEDS: Aggrenox 200-25mg CAP PO SCH ×2 (08:27→19:45)
[2021-01-13] MEDS: cefTRIAXone\\ROCEPHIN 1 GM in Sodium Chloride 0.9% 100 ML IVPB SCH (08:27)
[2021-01-13] MEDS: Lantus 1000 UNITS/10 ML VIAL SC SCH ×2 (08:27→20:40)
[2021-01-13] MEDS: Enoxaparin Sodium 30 MG/0.3 ML SYRINGE SC SCH (08:27)
[2021-01-13] MEDS: Metoprolol Tartrate 50 MG TAB PER TUBE SCH ×2 (08:28→19:45)
[2021-01-13] MEDS: Amlodipine 10 MG TAB PER TUBE SCH (08:29)
[2021-01-13] MEDS: Digoxin 0.125 MG TAB PO SCH (08:29)
[2021-01-13] MEDS ORDERED: Nitroglycerin 2% Ointment 1 INCH/1 GM Packet TOP SCH (08:32)
[2021-01-13] MEDS ORDERED: Aspirin 325 mg Enteric Coated Tablet PO SCH (08:32)
[2021-01-13] MEDS ORDERED: Ondansetron PF 4 MG/2 ML Vial IVP SCH (08:36)
[2021-01-13 09:50] LABS: Troponin I 0.043 ng/mL (< 0.028)
[2021-01-13 10:46] LABS: #Eosinphils 0.4 thou/uL (0.0-0.7); #Lymphocytes 1.7 thou/uL (1.20-3.40); #Monocytes 1.5 thou/uL (0.11-0.59); #Neutrophils 13.2 thou/uL (1.40-6.50); %Basophils 0.1 % (0.0-1.0); %Eosinophils 2.1 % (0.0-10.0); %Lymphocytes 9.9 % (21.0-51.0); %Neutrophils 78.8 % (42.0-75.0); Hypochromia SLIGHT = 6-15 cells (100X) (0-5/hpf); Lymphocytes 10 % (21-51); MDiff Complete? YES; Monocytes 2 % (0-10); Neutrophil 88 % (42-75); Platelet Morphology Comment Appears Adequate
[2021-01-13 13:50] LABS: Troponin I 0.031 ng/mL (< 0.028)
[2021-01-13] MEDS: HumaLOG 300 UNITS/3 ML VIAL SC PRN (17:47)
[2021-01-13] MEDS: Dextrose 5 %-0.45 % NaCl 1,000 ML IV SCH (19:44)
[2021-01-13] MEDS: Atorvastatin Calcium 40 MG TAB PO SCH (19:45)
[2021-01-14 07:39] LABS: #Eosinphils 0.3 thou/uL (0.0-0.7); #Lymphocytes 2.5 thou/uL (1.20-3.40); #Monocytes 1.8 thou/uL (0.11-0.59); %Basophils 0.1 % (0.0-1.0); %Eosinophils 2.1 % (0.0-10.0); %Lymphocytes 15.9 % (21.0-51.0); %Monocytes 11.4 % (0.0-10.0); %Neutrophils 70.4 % (42.0-75.0); Hemoglobin 7.6 g/dL (12.0-16.0); Mean Corpuscular HGB CONC 33.8 g/dL (32.0-36.0); Mean Corpuscular Hemoglobin 29.4 pg (27.0-31.0); Mean Corpuscular Volume 87.2 fL (78.0-98.0); Mean Platelet Volume 11.1 fL (7.4-10.4); Platelet Count 246 thou/uL (130-400); RBC Distribution Width 13.9 % (11.5-14.5); Red Blood Cell (RBC) Count 2.59 mill/uL (4.20-5.40); White Blood Cell (WBC) Count 15.6 thou/uL (4.8-10.8)
[2021-01-14 07:51] LABS: Anion Gap 12 mmol/L (10-20); BUN (Urea Nitrogen) 29 mg/dL (9.8-20.1); Calc. Creatinine Clearance 34 mL/min (70-130); Calcium 8.8 mg/dL (7.8-10.44); Carbon Dioxide 20 mmol/L (23-31); Chloride 114 mmol/L (98-107); Glucose 132 mg/dL (80-115); Potassium 5.1 mmol/L (3.5-5.1); Sodium 141 mmol/L (136-145)
[2021-01-14] MEDS: Lantus 1000 UNITS/10 ML VIAL SC SCH ×2 (08:29→19:21)
[2021-01-14] MEDS: Metoprolol Tartrate 50 MG TAB PER TUBE SCH ×2 (08:30→19:19)
[2021-01-14] MEDS: Amlodipine 10 MG TAB PER TUBE SCH (08:30)
[2021-01-14] MEDS: Digoxin 0.125 MG TAB PO SCH (08:30)
[2021-01-14] MEDS: Aggrenox 200-25mg CAP PO SCH ×2 (08:30→19:19)
[2021-01-14] MEDS: Enoxaparin Sodium 30 MG/0.3 ML SYRINGE SC SCH (08:30)
[2021-01-14] MEDS: Acetaminophen 325 MG TAB PO PRN ×2 (10:34→19:20)
[2021-01-14] MEDS: Calcium Carbonate 500 MG ChewTAB PO PRN ×2 (13:59→19:19)
[2021-01-14] MEDS: Pantoprazole 40 MG GRANULES PACKET PER TUBE SCH (13:59)
[2021-01-14] MEDS ORDERED: Pantoprazole 40 MG GRANULES PACKET PER TUBE SCH (14:00)
[2021-01-14 18:01] LABS: Hemoglobin 7.5 g/dL (12.0-16.0); Mean Corpuscular HGB CONC 32.3 g/dL (32.0-36.0); Mean Corpuscular Hemoglobin 28.2 pg (27.0-31.0); Mean Corpuscular Volume 87.3 fL (78.0-98.0); Mean Platelet Volume 10.4 fL (7.4-10.4); Platelet Count 260 thou/uL (130-400); RBC Distribution Width 14.6 % (11.5-14.5); Red Blood Cell (RBC) Count 2.64 mill/uL (4.20-5.40); White Blood Cell (WBC) Count 16.2 thou/uL (4.8-10.8)
[2021-01-14 18:17] LABS: Iron 29 ug/dL (50-170); Iron Binding Capacity, Total 196 mcg/dL (265-497)
[2021-01-14 18:44] LABS: Eosinophils 3 % (0-10); Lymphocytes 20 % (21-51); MDiff Complete? YES; Monocytes 4 % (0-10); Neutrophil 72 % (42-75); Platelet Morphology Comment Appears Adequate; Polychromasia SLIGHT = 2-3 cells (100X) (0-2/hpf)
[2021-01-14] MEDS: Atorvastatin Calcium 40 MG TAB PO SCH (19:19)
[2021-01-15 01:04] LABS: Iron 20 ug/dL (50-170); Iron Binding Capacity, Total 199 mcg/dL (265-497)
[2021-01-15] MEDS: Enoxaparin Sodium 30 MG/0.3 ML SYRINGE SC SCH (08:24)
[2021-01-15] MEDS: Lantus 1000 UNITS/10 ML VIAL SC SCH ×2 (08:25→22:36)
[2021-01-15] MEDS: Pantoprazole 40 MG GRANULES PACKET PER TUBE SCH (08:26)
[2021-01-15] MEDS: Acetaminophen 325 MG TAB PO PRN ×2 (08:26→14:23)
[2021-01-15] MEDS: Digoxin 0.125 MG TAB PO SCH (08:27)
[2021-01-15] MEDS: Folic Acid 1 MG TAB PO SCH (08:27)
[2021-01-15] MEDS: Aggrenox 200-25mg CAP PO SCH ×2 (08:27→22:44)
[2021-01-15] MEDS: Cyanocobalamin (Vitamin B-12) 1,000 MCG TAB PO SCH (08:27)
[2021-01-15] MEDS: Amlodipine 10 MG TAB PER TUBE SCH (08:27)
[2021-01-15] MEDS: Metoprolol Tartrate 50 MG TAB PER TUBE SCH ×2 (08:28→22:36)
[2021-01-15] MEDS ORDERED: Furosemide 20 MG/2 ML VIAL SLOW IVP SCH (12:00)
[2021-01-15] MEDS ORDERED: Ferrous Sulfate 325 MG TAB PO SCH (12:00)
[2021-01-15 13:36] LABS: SARS-CoV-2 PCR by NAA Not Detected (NotDetected)
[2021-01-15] MEDS: Atorvastatin Calcium 40 MG TAB PO SCH (22:36)
[2021-01-16] MEDS: Acetaminophen 325 MG TAB PO PRN ×2 (01:41→09:39)
[2021-01-16] MEDS: Lantus 1000 UNITS/10 ML VIAL SC SCH ×2 (09:27→20:11)
[2021-01-16] MEDS: FLUoxetine HCl 20 MG/5 ML UDCUP PER TUBE SCH (09:28)
[2021-01-16] MEDS: Floranex Packet PER TUBE SCH ×2 (09:28→20:11)
[2021-01-16] MEDS: Donepezil HCl 5 MG TAB PER TUBE SCH (09:29)
[2021-01-16] MEDS: Enoxaparin Sodium 30 MG/0.3 ML SYRINGE SC SCH (09:32)
[2021-01-16] MEDS: Pantoprazole 40 MG GRANULES PACKET PER TUBE SCH (09:32)
[2021-01-16] MEDS: Amlodipine 10 MG TAB PER TUBE SCH (09:32)
[2021-01-16] MEDS: Aggrenox 200-25mg CAP PO SCH ×2 (09:32→20:11)
[2021-01-16] MEDS: Folic Acid 1 MG TAB PO SCH (09:33)
[2021-01-16] MEDS: Metoprolol Tartrate 50 MG TAB PER TUBE SCH ×2 (09:33→20:11)
[2021-01-16] MEDS: Digoxin 0.125 MG TAB PO SCH (09:33)
[2021-01-16] MEDS: Cyanocobalamin (Vitamin B-12) 1,000 MCG TAB PO SCH (09:33)
[2021-01-16] MEDS: Furosemide 20 MG TAB PO SCH (09:33)
[2021-01-16] MEDS: Clopidogrel Bisulfate 75 MG TAB PER TUBE SCH (09:40)
[2021-01-16 09:52] LABS: Hemoglobin 7.6 g/dL (12.0-16.0)
[2021-01-16 10:13] LABS: Anion Gap 16 mmol/L (10-20); BUN (Urea Nitrogen) 28 mg/dL (9.8-20.1); Calc. Creatinine Clearance 35 mL/min (70-130); Carbon Dioxide 16 mmol/L (23-31); Chloride 111 mmol/L (98-107); Glucose 102 mg/dL (80-115); Potassium 5.9 mmol/L (3.5-5.1); Sodium 137 mmol/L (136-145)
[2021-01-16] MEDS: Atorvastatin Calcium 40 MG TAB PO SCH (20:11)
[2021-01-16] MEDS: Melatonin 3 MG TAB PER TUBE SCH (20:11)
[2021-01-17 06:57] LABS: Hemoglobin 7.5 g/dL (12.0-16.0)
[2021-01-17 07:12] LABS: Anion Gap 13 mmol/L (10-20); BUN (Urea Nitrogen) 29 mg/dL (9.8-20.1); Calc. Creatinine Clearance 36 mL/min (70-130); Calcium 8.4 mg/dL (7.8-10.44); Carbon Dioxide 19 mmol/L (23-31); Chloride 109 mmol/L (98-107); Glucose 126 mg/dL (80-115); Potassium 6.2 mmol/L (3.5-5.1); Sodium 135 mmol/L (136-145)
[2021-01-17] MEDS: Calcium Carbonate 500 MG ChewTAB PO PRN (07:54)
[2021-01-17] MEDS: Acetaminophen 325 MG TAB PO PRN ×2 (07:54→20:43)
[2021-01-17] MEDS: Digoxin 0.125 MG TAB PO SCH (07:55)
[2021-01-17] MEDS: Pantoprazole 40 MG GRANULES PACKET PER TUBE SCH (07:55)
[2021-01-17] MEDS: Floranex Packet PER TUBE SCH ×2 (07:56→20:44)
[2021-01-17] MEDS: Donepezil HCl 5 MG TAB PER TUBE SCH (07:56)
[2021-01-17] MEDS: Furosemide 20 MG TAB PO SCH (07:56)
[2021-01-17] MEDS: Amlodipine 10 MG TAB PER TUBE SCH (07:56)
[2021-01-17] MEDS: Metoprolol Tartrate 50 MG TAB PER TUBE SCH ×2 (07:56→20:44)
[2021-01-17] MEDS: Clopidogrel Bisulfate 75 MG TAB PER TUBE SCH (07:56)
[2021-01-17] MEDS: Cyanocobalamin (Vitamin B-12) 1,000 MCG TAB PO SCH (07:56)
[2021-01-17] MEDS: Folic Acid 1 MG TAB PO SCH (07:56)
[2021-01-17] MEDS: Aggrenox 200-25mg CAP PO SCH ×2 (07:56→20:44)
[2021-01-17] MEDS: Lantus 1000 UNITS/10 ML VIAL SC SCH ×2 (07:57→20:43)
[2021-01-17] MEDS: FLUoxetine HCl 20 MG/5 ML UDCUP PER TUBE SCH (07:57)
[2021-01-17] MEDS: Enoxaparin Sodium 30 MG/0.3 ML SYRINGE SC SCH (07:57)
[2021-01-17] MEDS ORDERED: Calcium Gluc 4.6 MEQ/10 ML (100 MG/ML) SLOW IVP SCH (08:25)
[2021-01-17] MEDS ORDERED: Insulin Regular 300 UNITS/3 ML VIAL IVP SCH (08:28)
[2021-01-17] MEDS ORDERED: Dextrose 50% Abboject 50 ML SYRINGE SLOW IVP SCH (08:29)
[2021-01-17] MEDS ORDERED: Furosemide 20 MG/2 ML VIAL SLOW IVP SCH (12:15)
[2021-01-17 15:20] LABS: Actual Bicarbonate (HCO3a) 20.2 mEq/L (22-28); Base Excess (BEa) -3.3 mEq/L (-2.0 to +3.0); CO2 Tension 30.5 mmHg (35.0-45.0); Calcium, Ionized (arterial) 1.16 mmol/L (1.12-1.30); Carboxyhemoglobin (COHb) 0.1 gm% (0.0-3.0); Hemoglobin (Hb) 9.3 g/dL (12.0-16.0); pH, Arterial 7.44 (7.35-7.45)
[2021-01-17 20:06] LABS: Actual Bicarbonate (HCO3v) 19 mEq/L (22-28); Base Excess -4.7 mEq/L (-2.0 to +3.0); Calcium, Ionized (venous) 1.07 mmol/L (1.16-1.32); Chloride (VBG) 106 mmol/L (98-106); Hemoglobin (Hb) 8.1 g/dL (11.7-16.1); Potassium (VBG) 5.75 mmol/L (3.70-5.30); Sodium 134.5 mmol/L (133-146); pH (venous) 7.44 (7.32-7.43)
[2021-01-17] MEDS: Atorvastatin Calcium 40 MG TAB PO SCH (20:43)
[2021-01-17] MEDS: Melatonin 3 MG TAB PER TUBE SCH (20:45)
[2021-01-17] MEDS ORDERED: Gabapentin 100 MG CAP PO SCH (22:30)
[2021-01-18 07:53] LABS: Anion Gap 11 mmol/L (10-20); BUN (Urea Nitrogen) 27 mg/dL (9.8-20.1); Calc. Creatinine Clearance 38 mL/min (70-130); Calcium 8.6 mg/dL (7.8-10.44); Carbon Dioxide 22 mmol/L (23-31); Chloride 107 mmol/L (98-107); Glucose 177 mg/dL (80-115); Potassium 6.1 mmol/L (3.5-5.1); Sodium 134 mmol/L (136-145)
[2021-01-18] MEDS: Floranex Packet PER TUBE SCH ×2 (10:17→20:57)
[2021-01-18] MEDS ORDERED: Furosemide 20 MG/2 ML VIAL SLOW IVP SCH (11:25)
[2021-01-18] MEDS ORDERED: Insulin Regular 300 UNITS/3 ML VIAL IVP SCH (11:25)
[2021-01-18] MEDS: Clopidogrel Bisulfate 75 MG TAB PER TUBE SCH (12:52)
[2021-01-18] MEDS: Aggrenox 200-25mg CAP PO SCH ×2 (12:52→20:58)
[2021-01-18] MEDS: Digoxin 0.125 MG TAB PO SCH (12:52)
[2021-01-18] MEDS: Cyanocobalamin (Vitamin B-12) 1,000 MCG TAB PO SCH (12:52)
[2021-01-18] MEDS: Amlodipine 10 MG TAB PER TUBE SCH (12:52)
[2021-01-18] MEDS: Folic Acid 1 MG TAB PO SCH (12:54)
[2021-01-18] MEDS: Enoxaparin Sodium 30 MG/0.3 ML SYRINGE SC SCH (12:54)
[2021-01-18] MEDS: Donepezil HCl 5 MG TAB PER TUBE SCH (12:54)
[2021-01-18] MEDS: Metoprolol Tartrate 50 MG TAB PER TUBE SCH ×2 (12:54→20:59)
[2021-01-18] MEDS: Furosemide 20 MG TAB PO SCH (12:54)
[2021-01-18] MEDS: FLUoxetine HCl 20 MG/5 ML UDCUP PER TUBE SCH (12:54)
[2021-01-18] MEDS: Lantus 1000 UNITS/10 ML VIAL SC SCH ×2 (12:54→21:00)
[2021-01-18] MEDS: Pantoprazole 40 MG GRANULES PACKET PER TUBE SCH (12:55)
[2021-01-18] MEDS ORDERED: Dextrose 50% Abboject 50 ML SYRINGE SLOW IVP SCH (13:00)
[2021-01-18 15:33] LABS: Chloride 105 mmol/L (98-107); Potassium 5.5 mmol/L (3.5-5.1); Sodium 131 mmol/L (136-145)
[2021-01-18 15:34] LABS: Calcium 8.5 mg/dL (7.8-10.44)
[2021-01-18 15:36] LABS: Anion Gap 16 mmol/L (10-20); Carbon Dioxide 16 mmol/L (23-31)
[2021-01-18 15:38] LABS: BUN (Urea Nitrogen) 28 mg/dL (9.8-20.1); Calc. Creatinine Clearance 36 mL/min (70-130); Glucose 334 mg/dL (80-115)
[2021-01-18] MEDS: Gabapentin 100 MG CAP PO SCH (20:58)
[2021-01-18] MEDS: Atorvastatin Calcium 40 MG TAB PO SCH (20:58)
[2021-01-18] MEDS: Melatonin 3 MG TAB PER TUBE SCH (20:59)
[2021-01-18 22:35] LABS: Anion Gap 14 mmol/L (10-20); BUN (Urea Nitrogen) 28 mg/dL (9.8-20.1); Calc. Creatinine Clearance 37 mL/min (70-130); Calcium 8.4 mg/dL (7.8-10.44); Carbon Dioxide 22 mmol/L (23-31); Chloride 102 mmol/L (98-107); Glucose 204 mg/dL (80-115); Potassium 4.8 mmol/L (3.5-5.1); Sodium 133 mmol/L (136-145)
[2021-01-18] MEDS: Acetaminophen 325 MG TAB PO PRN (23:33)
[2021-01-19] MEDS: HumaLOG 300 UNITS/3 ML VIAL SC PRN (05:52)
[2021-01-19] MEDS: Floranex Packet PER TUBE SCH ×2 (09:06→20:21)
[2021-01-19] MEDS: Furosemide 20 MG TAB PO SCH (09:06)
[2021-01-19] MEDS: FLUoxetine HCl 20 MG/5 ML UDCUP PER TUBE SCH (09:06)
[2021-01-19] MEDS: Pantoprazole 40 MG GRANULES PACKET PER TUBE SCH (09:07)
[2021-01-19] MEDS: Folic Acid 1 MG TAB PO SCH (09:07)
[2021-01-19] MEDS: Digoxin 0.125 MG TAB PO SCH (09:07)
[2021-01-19] MEDS: Amlodipine 10 MG TAB PER TUBE SCH (09:07)
[2021-01-19] MEDS: Cyanocobalamin (Vitamin B-12) 1,000 MCG TAB PO SCH (09:07)
[2021-01-19] MEDS: Aggrenox 200-25mg CAP PO SCH ×2 (09:07→20:21)
[2021-01-19] MEDS: Metoprolol Tartrate 50 MG TAB PER TUBE SCH ×2 (09:08→20:22)
[2021-01-19] MEDS: Enoxaparin Sodium 30 MG/0.3 ML SYRINGE SC SCH (09:08)
[2021-01-19] MEDS: Donepezil HCl 5 MG TAB PER TUBE SCH (09:08)
[2021-01-19] MEDS: Lantus 1000 UNITS/10 ML VIAL SC SCH ×2 (09:08→20:22)
[2021-01-19] MEDS: Clopidogrel Bisulfate 75 MG TAB PER TUBE SCH (09:08)
[2021-01-19] MEDS: Melatonin 3 MG TAB PER TUBE SCH (20:21)
[2021-01-19] MEDS: Atorvastatin Calcium 40 MG TAB PO SCH (20:22)
[2021-01-19] MEDS: Gabapentin 100 MG CAP PO SCH (20:22)
[2021-01-19] MEDS: Acetaminophen 325 MG TAB PO PRN (23:36)
[2021-01-20] MEDS: Acetaminophen 325 MG TAB PO PRN (05:05)
[2021-01-20] MEDS: Lantus 1000 UNITS/10 ML VIAL SC SCH (07:16)
[2021-01-20 08:41] VITALS: BP 143/66; TEMP 98.6
[2021-01-20] MEDS: FLUoxetine HCl 20 MG/5 ML UDCUP PER TUBE SCH (08:44)
[2021-01-20] MEDS: Floranex Packet PER TUBE SCH (08:44)
[2021-01-20] MEDS: Enoxaparin Sodium 30 MG/0.3 ML SYRINGE SC SCH (08:45)
[2021-01-20] MEDS: Donepezil HCl 5 MG TAB PER TUBE SCH (08:45)
[2021-01-20] MEDS: Aggrenox 200-25mg CAP PO SCH (08:45)
[2021-01-20] MEDS: Amlodipine 10 MG TAB PER TUBE SCH (08:45)
[2021-01-20] MEDS: Clopidogrel Bisulfate 75 MG TAB PER TUBE SCH (08:45)
[2021-01-20] MEDS: Digoxin 0.125 MG TAB PO SCH (08:46)
[2021-01-20] MEDS: Cyanocobalamin (Vitamin B-12) 1,000 MCG TAB PO SCH (08:46)
[2021-01-20] MEDS: Pantoprazole 40 MG GRANULES PACKET PER TUBE SCH (08:46)
[2021-01-20] MEDS: Folic Acid 1 MG TAB PO SCH (08:46)
[2021-01-20] MEDS: Furosemide 20 MG TAB PO SCH (08:46)
[2021-01-20] MEDS: Metoprolol Tartrate 50 MG TAB PER TUBE SCH (08:46)
== END 2021-01-20 09:22 | DRG 682 ==
LOC: ERS 20:58 → ERHOLD 01-08 01:05 → 3SE 01-08 07:04 → T4-A 01-08 18:32
PROVIDERS: ADMIT Family Medicine; ATTEND Family Medicine
DX: N17.9 Acute kidney failure, unspecified (principal); I50.33 Acute on chronic diastolic (congestive) heart failure; E87.0 Hyperosmolality and hypernatremia; I13.0 Hypertensive heart and chronic kidney disease with heart failure and stage 1 through stage 4 chronic kidney disease, or unspecified chronic kidney disease; G93.49 Other encephalopathy; F03.91 Unspecified dementia, unspecified severity, with behavioral disturbance; E44.0 Moderate protein-calorie malnutrition; Z20.822 Contact with and (suspected) exposure to COVID-19; L89.152 Pressure ulcer of sacral region, stage 2; E86.0 Dehydration; E87.5 Hyperkalemia; E11.65 Type 2 diabetes mellitus with hyperglycemia; E86.9 Volume depletion, unspecified; R74.02 Elevation of levels of lactic acid dehydrogenase [LDH]; K21.9 Gastro-esophageal reflux disease without esophagitis; D50.9 Iron deficiency anemia, unspecified; D70.9 Neutropenia, unspecified; M79.605 Pain in left leg; M79.604 Pain in right leg; R07.89 Other chest pain; Z28.21 Immunization not carried out because of patient refusal; Z86.73 Personal history of transient ischemic attack (TIA), and cerebral infarction without residual deficits; Z74.01 Bed confinement status; Z93.1 Gastrostomy status; Z79.899 Other long term (current) drug therapy; Z79.84 Long term (current) use of oral hypoglycemic drugs; Z95.0 Presence of cardiac pacemaker; Z68.20 Body mass index [BMI] 20.0-20.9, adult
CPT/HCPCS: 36415; 36416; 51701; 70450; 71045; 71046; 80048; 80053; 81003; 82010; 82607; 82728; 82746; 82805; 83540; 83550; 83605; 83690; 84484; 85014; 85018; 85025; 85060; 85610; 85730; 87040; 87086; 93005; 93010; 96365; 96367; 96375; J0692; J0696; J1650; J1815; J1940; J2001; J2405; J3370; J3490; J7042; J7050; U0002; U0003; U0005